=== PATIENT | male | born 1970 | race Caucasian/White ===

== ENCOUNTER 2020-08-13 14:13 | Emergency (ER) | payer OTHER, SELFPAY ==
[2020-08-13 15:28] VITALS: BP 183/93; PULSE 122; RESP 18; TEMP 36.8; O2SAT 99; BMI 29.5
--- NOTE | 2020-08-13 15:29 | ED.GENADULT ---
HPI - General Adult General Chief complaint: General Medical Stated complaint: ?pulmonary embolism,lumps on legs Time Seen by Provider: 08/13/20 15:28 Source: patient Mode of arrival: ambulatory Limitations: no limitations History of Present Illness HPI narrative: In 50-year-old male with prior medical history significant for a DVT in the right lower extremity from right leg surgery a year ago he was anticoagulated with Lovenox subsequently. Next any anticoagulants he presents ambulatory from [facility] for rule out ? PE/DVT? Reports right calf pain ongoing for past couple of days. He did have upper respiratory symptoms with cough and shortness of breath which his family had and they all tested positive for COVID he was presumed COVID though symptoms are starting to improve. Upon arrival he is tachycardic 124 with pulse ox 98%. He admittedly slightly nervous given his history of DVT and concern for PE. Onset (ago): day(s) Related Data Allergies Allergy/AdvReac Type Severity Reaction Status Date / Time No Known Allergies Allergy Verified 08/13/20 15:28 [facility] Past Medical History Medical History (Updated 08/13/20 @ 15:32 by Jordana Pyle) DVT (deep venous thrombosis) Social History Social History Advance Directives: No Advance Directives Information Provided: Yes Physical Exam Vital Signs: Vital Signs: Last Vital Signs Temp 98.2 F 08/13/20 15:28 Pulse 122 H 08/13/20 15:28 Resp 18 08/13/20 15:28 BP 183/93 H 08/13/20 15:28 Pulse Ox 99 08/13/20 15:28 Body Mass Index 29.5 Course Course Course Narrative: 1533 In review 50-year-old male with history of provoked DVT in the right lower extremity a year ago status post Lovenox not currently taking any anticoagulants Presenting with right calf pain. Tachycardic in the waiting room though not hypoxic likely secondary to anxiety however given his history will check labs and right lower extremity ultrasound. Reevaluation(s) Reevaluation #1: 1540 Labs drawn by me and sent. Medical Decision Making Medical Records Medical records reviewed: Yes I reviewed the patient's medical records. Lab Data Result diagrams: 08/13/20 15:35 08/13/20 15:35 Labs: Lab Results 08/13/20 08/13/20 08/13/20 Range/Units 15:35 15:35 15:35 WBC 14.0 H (4.8-10.8) X10*3/uL RBC 6.16 H (4.60-5.80) X10*6/uL Hgb 17.4 (14.0-18.0) g/dl Hct 51.2 (42-52) % MCV 83.1 (80-98) fL MCH 28.2 (27.0-33.0) pg MCHC 34.0 (31.0-36.0) g/dl RDW 12.8 (11.0-16.0) % Plt Count 363 (160-400) X10*3/uL MPV 9.9 (9.4-12.4) fL Immature Gran % (Auto) 0.9 H (0.0-0.4) % Neut % (Auto) 66.8 (45-73) % Lymph % (Auto) 22.8 (20-40) % [place] % (Auto) 8.1 (2-11) % Eos % (Auto) 0.7 (0-4) % Baso % (Auto) 0.7 (0-2) % Lymph # (Auto) 3.2 (1.2-4.9) X10*3/uL [place] # (Auto) 1.1 (0.1-1.2) X10*3/uL Eos # (Auto) 0.1 (0.0-0.4) X10*3/uL Baso # (Auto) 0.1 (0.0-0.2) X10*3/uL Abs Immat Gran (auto) 0.12 H (0.00-0.03) X10*3/uL Absolute Neuts (auto) 9.4 H (2.0-8.3) X10*3/uL Absolute Nucleated RBC 0.000 (0.0-0.012) X10*3/uL Nucleated RBC % (auto) 0.0 (0.0-0.2) /100WBC PT 10.7 L (10.8-13.0) SEC INR 0.9 (0.9-1.1) APTT 36.2 (24.1-38.0) SEC D-Dimer < 200 NG/ML Sodium 139 (135-145) mmol/L Potassium 4.6 (3.3-5.1) mmol/l Chloride 101 (96-108) mmol/L Carbon Dioxide 26 (22-29) mmol/L Anion Gap 17 (12-20) BUN 9 (9-16) mg/dL Creatinine 0.86 (0.5-1.4) mg/dL Estim Creat Clear Calc 113.1 Estimated GFR > 60 Random Glucose 440 H* (60-115) mg/dL Calcium 10.6 H (8.4-10.2) mg/dL Total Bilirubin 0.3 (0.0-1.0) mg/dL AST 13 (5-37) U/L ALT 22 (0-40) U/L Alkaline Phosphatase 63 (39-117) U/L Total Protein 7.9 (6.5-8.0) g/dL Albumin 4.8 (3.5-5.0) g/dL Imaging Data Right lower extremity ultrasound: Radiologist's impression: Dmitriy Tsang 50 M 1970 [place] [address] Ultrasound Report Signed Patient: Dmitriy TsangMR#: [id number] : 1970Acct:[id number] Age/Sex: 50 / MADM Date: 08/13/20 Loc: .ED Attending Dr: Ordering Physician: Sarthak Rivas NP Date of Service: 08/13/20 Procedure(s): US venous duplex LE RT Accession Number(s): [id number] cc: Sarthak Rivas NP~ EXAMINATION: US VENOUS ULTRASOUND WITH DOPPLER LOWER EXTREMITY, RIGHT CLINICAL INFORMATION: History of DVT COMPARISON: None TECHNIQUE: Ultrasound of the deep veins is performed from the hip to the calf with compression sonography and color and pulse Doppler assessment. Spectral analysis with color-flow imaging is performed. FINDINGS: There is normal venous compression and respiratory variation and augmented flow. The visualized common femoral vein, superficial femoral vein, profunda femoral vein, popliteal vein, and the trifurcation region shows no evidence of deep venous thrombosis. There is no significant popliteal fossa cyst. A small 8 x 3 x 5 mm soft tissue nodule is present in the right lateral mid reyes. If the patient's symptoms persist, followup ultrasound in 5 days 7 days might be of value to exclude proximal propagation from a non-visualized calf vein. US/US venous duplex LE RT IMPRESSION: No DVT demonstrated in the right lower extremity. Small soft tissue nodule reyes as described above. Dictated By:HOME VALDIVIA MD Signed By:<Electronically signed by HOME VALDIVIA MD in OV>08/13/20 9946 DD/ 1535 TD/TT: Cassandra Consultant: Discharge Plan Discharge Patient Disposition: Left Against Medical Advice Interventions: ED Discharge Assessment Last Done: 08/13/20 18:44 Discharge Date/Time: 08/13/20 20:00
--- NOTE | 2020-08-13 15:35 | US_ITS ---
EXAMINATION: US VENOUS ULTRASOUND WITH DOPPLER LOWER EXTREMITY, RIGHT CLINICAL INFORMATION: History of DVT COMPARISON: None TECHNIQUE: Ultrasound of the deep veins is performed from the hip to the calf with compression sonography and color and pulse Doppler assessment. Spectral analysis with color-flow imaging is performed. FINDINGS: There is normal venous compression and respiratory variation and augmented flow. The visualized common femoral vein, superficial femoral vein, profunda femoral vein, popliteal vein, and the trifurcation region shows no evidence of deep venous thrombosis. There is no significant popliteal fossa cyst. A small 8 x 3 x 5 mm soft tissue nodule is present in the right lateral mid reyes. If the patient's symptoms persist, followup ultrasound in 5 days 7 days might be of value to exclude proximal propagation from a non-visualized calf vein. US/US venous duplex LE RT IMPRESSION: No DVT demonstrated in the right lower extremity. Small soft tissue nodule reyes as described above.
[2020-08-13 15:46] LABS: MANUAL DIFF FLAG NO
[2020-08-13 15:58] LABS: INTERNATIONAL NORM RATIO 0.9 (0.9-1.1); Prothrombin Time 10.7 SEC (10.8-13.0)
[2020-08-13 16:01] LABS: Partial Thromboplastin Time 36.2 SEC (24.1-38.0)
[2020-08-13 16:03] LABS: Basophils Absolute Auto 0.1 X10*3/uL (0.0-0.2); Basophils Percent Auto 0.7 % (0-2); Eosinophils Absolute Auto 0.1 X10*3/uL (0.0-0.4); Eosinophils Percent Auto 0.7 % (0-4); Hematocrit 51.2 % (42-52); Hemoglobin 17.4 g/dl (14.0-18.0); Imm Gran Abs Auto 0.12 X10*3/uL (0.00-0.03); Imm Gran Pct Auto 0.9 % (0.0-0.4); Lymphocytes Absolute Auto 3.2 X10*3/uL (1.2-4.9); Lymphocytes Percent Auto 22.8 % (20-40); Mean Corpuscular Hemoglobin 28.2 pg (27.0-33.0); Mean Corpuscular Volume 83.1 fL (80-98); Mean Platelet Volume 9.9 fL (9.4-12.4); Monocytes Absolute Auto 1.1 X10*3/uL (0.1-1.2); Monocytes Percent Auto 8.1 % (2-11); Neutrophils Absolute Auto 9.4 X10*3/uL (2.0-8.3); Neutrophils Percent Auto 66.8 % (45-73); Platelet Count 363 X10*3/uL (160-400); Red Blood Count 6.16 X10*6/uL (4.60-5.80); Red Cell Distribution Width 12.8 % (11.0-16.0)
[2020-08-13 16:07] LABS: D Dimer < 200 NG/ML
[2020-08-13 16:40] LABS: Alanine Aminotransferase 22 U/L (0-40); Albumin Level 4.8 g/dL (3.5-5.0); Alkaline Phosphatase 63 U/L (39-117); Anion Gap 17 (12-20); Aspartate Amino Transferase 13 U/L (5-37); Bilirubin Total 0.3 mg/dL (0.0-1.0); Blood Urea Nitrogen 9 mg/dL (9-16); Calcium 10.6 mg/dL (8.4-10.2); Carbon Dioxide 26 mmol/L (22-29); Chloride 101 mmol/L (96-108); Creatinine Clr Calc Pharmacy 113.1; Estimated Glomerular Filt Rate > 60; Glucose Random 440 mg/dL (60-115); Potassium 4.6 mmol/l (3.3-5.1); Sodium 139 mmol/L (135-145); Total Protein 7.9 g/dL (6.5-8.0)
--- NOTE | 2020-08-13 18:52 | ED_ITS ---
HPI - General Adult General Chief complaint: General Medical Stated complaint: ?pulmonary embolism,lumps on legs Time Seen by Provider: 08/13/20 15:28 Source: patient Mode of arrival: ambulatory Limitations: no limitations History of Present Illness HPI narrative: This case was signed out to me by isai Rivas to follow an ultrasound, re-evaluate and disposition this patient When I went to look for the patient in the waiting room, he had been seen in the waiting room and started by the nurse practitioner the patient had left the department so I never saw the patient, I did check the labs is D-dimer was normal under 200 and his ultrasound of his leg was negative He had an initial pulse of 120 which was not recheck and I could not recheck as the patient was gone and had left the department Review of his labs did not show any acute emergent condition that needed to be communicated Related Data Allergies Allergy/AdvReac Type Severity Reaction Status Date / Time No Known Allergies Allergy Verified 08/13/20 15:28 [facility] Past Medical History Medical History (Updated 08/13/20 @ 15:32 by Jordana Pyle) DVT (deep venous thrombosis) Social History Social History Advance Directives: No Advance Directives Information Provided: Yes Physical Exam Vital Signs: Vital Signs: Last Vital Signs Temp 98.2 F 08/13/20 15:28 Pulse 122 H 08/13/20 15:28 Resp 18 08/13/20 15:28 BP 183/93 H 08/13/20 15:28 Pulse Ox 99 08/13/20 15:28 Body Mass Index 29.5 Medical Decision Making Lab Data Result diagrams: 08/13/20 15:35 08/13/20 15:35 Labs: Lab Results 08/13/20 08/13/20 08/13/20 Range/Units 15:35 15:35 15:35 WBC 14.0 H (4.8-10.8) X10*3/uL RBC 6.16 H (4.60-5.80) X10*6/uL Hgb 17.4 (14.0-18.0) g/dl Hct 51.2 (42-52) % MCV 83.1 (80-98) fL MCH 28.2 (27.0-33.0) pg MCHC 34.0 (31.0-36.0) g/dl RDW 12.8 (11.0-16.0) % Plt Count 363 (160-400) X10*3/uL MPV 9.9 (9.4-12.4) fL Immature Gran % (Auto) 0.9 H (0.0-0.4) % Neut % (Auto) 66.8 (45-73) % Lymph % (Auto) 22.8 (20-40) % [place] % (Auto) 8.1 (2-11) % Eos % (Auto) 0.7 (0-4) % Baso % (Auto) 0.7 (0-2) % Lymph # (Auto) 3.2 (1.2-4.9) X10*3/uL [place] # (Auto) 1.1 (0.1-1.2) X10*3/uL Eos # (Auto) 0.1 (0.0-0.4) X10*3/uL Baso # (Auto) 0.1 (0.0-0.2) X10*3/uL Abs Immat Gran (auto) 0.12 H (0.00-0.03) X10*3/uL Absolute Neuts (auto) 9.4 H (2.0-8.3) X10*3/uL Absolute Nucleated RBC 0.000 (0.0-0.012) X10*3/uL Nucleated RBC % (auto) 0.0 (0.0-0.2) /100WBC PT 10.7 L (10.8-13.0) SEC INR 0.9 (0.9-1.1) APTT 36.2 (24.1-38.0) SEC D-Dimer < 200 NG/ML Sodium 139 (135-145) mmol/L Potassium 4.6 (3.3-5.1) mmol/l Chloride 101 (96-108) mmol/L Carbon Dioxide 26 (22-29) mmol/L Anion Gap 17 (12-20) BUN 9 (9-16) mg/dL Creatinine 0.86 (0.5-1.4) mg/dL Estim Creat Clear Calc 113.1 Estimated GFR > 60 Random Glucose 440 H* (60-115) mg/dL Calcium 10.6 H (8.4-10.2) mg/dL Total Bilirubin 0.3 (0.0-1.0) mg/dL AST 13 (5-37) U/L ALT 22 (0-40) U/L Alkaline Phosphatase 63 (39-117) U/L Total Protein 7.9 (6.5-8.0) g/dL Albumin 4.8 (3.5-5.0) g/dL Discharge Plan Discharge Patient Disposition: Left Against Medical Advice Interventions: ED Discharge Assessment Last Done: 08/13/20 18:44
== END 2020-08-13 20:00 | disposition left against medical advice (07) ==
LOC: HO.ED 18:57
PROVIDERS: Nurse Practitioner Primary Care; Emergency Provider Emergency Medicine
DX: M79.661 Pain in right lower leg (principal); R22.41 Localized swelling, mass and lump, right lower limb; F41.9 Anxiety disorder, unspecified; R00.0 Tachycardia, unspecified; Z86.718 Personal history of other venous thrombosis and embolism; Z86.16 Personal history of COVID-19
CPT/HCPCS: 36415; 80053; 85025; 85379; 85610; 85730; 93971; 99283; 99284

== ENCOUNTER 2022-05-20 10:32 | Inpatient (IN) | payer MEDICARE, SELFPAY ==
--- NOTE | ~2022-05-20 | IR_ITS ---
PROCEDURE: IR INSERTION OF PICC CLINICAL INFORMATION: Long-term IV antibiotic requirement. COMPARISON: None. TECHNIQUE: Procedure and risks and benefits including bleeding, infection and blood clot were discussed with the patient and informed consent was obtained. The right upper arm was prepped and draped in the usual sterile fashion. All elements of maximal sterile barrier technique followed including use of cap, mask, sterile gown, sterile gloves, a sterile full body drape and hand hygiene. Also followed skin preparation with 2% chlorhexidine for cutaneous antisepsis, and sterile ultrasound preparation with sterile gel and probe cover when applicable. Skin and soft tissues were anesthetized with 1% lidocaine plain. Using ultrasound guidance and a 5 Mong[place]ian micropuncture system, right internal jugular vein access was obtained. Over an 018 wire and through a peel-away sheath, a 4 [place] double-lumen PICC line was positioned. Catheter length is 37 cm. Catheter tip is in the SVC. Real-time ultrasound guidance was used to document vein patency and for needle entry. A formal ultrasound picture was recorded. FLUOROSCOPY TIME: 0.2 minutes. DAP: 48 cGy per centimeter squared. FINDINGS: There is a right upper extremity PICC line with tip projecting over the SVC. IR/IR cvc insert peripheral IMPRESSION: Right upper extremity PICC line placement.
--- NOTE | ~2022-05-20 | XR_ITS ---
EXAMINATION: PORTABLE CHEST 1 VIEW CLINICAL INFORMATION: dyspnea . COMPARISON: 05/20/2022 CT scan. TECHNIQUE: Portable frontal view of the chest was obtained. FINDINGS: Lungs are well expanded. There is obscuration left hemidiaphragm suggesting small layering left effusion and left basilar consolidation/atelectasis. There is central vascular prominence and some indistinctness to the vessels likely reflecting component of mild pulmonary edema when compared to the prior study. Cardiac silhouette within normal limits for size. Degenerative changes in the spine. XR/XR chest 1V IMPRESSION: Increased central vascular prominence with indistinctness to the vessels likely reflecting a component of mild pulmonary edema. Small layering left effusion with left basilar consolidation/atelectasis.
--- NOTE | ~2022-05-20 | IR_ITS ---
PROCEDURE: IR INSERTION OF PICC CLINICAL INFORMATION: Long-term IV antibiotic requirement. COMPARISON: None. TECHNIQUE: Procedure and risks and benefits including bleeding, infection and blood clot were discussed with the patient and informed consent was obtained. The right upper arm was prepped and draped in the usual sterile fashion. All elements of maximal sterile barrier technique followed including use of cap, mask, sterile gown, sterile gloves, a sterile full body drape and hand hygiene. Also followed skin preparation with 2% chlorhexidine for cutaneous antisepsis, and sterile ultrasound preparation with sterile gel and probe cover when applicable. Skin and soft tissues were anesthetized with 1% lidocaine plain. Using ultrasound guidance and a 5 [place] micropuncture system, right internal jugular vein access was obtained. Over an 018 wire and through a peel-away sheath, a 4 [place] double-lumen PICC line was positioned. Catheter length is 37 cm. Catheter tip is in the SVC. Real-time ultrasound guidance was used to document vein patency and for needle entry. A formal ultrasound picture was recorded. FLUOROSCOPY TIME: 0.2 minutes. DAP: 48 cGy per centimeter squared. FINDINGS: There is a right upper extremity PICC line with tip projecting over the SVC. IR/IR us guide venous access IMPRESSION: Right upper extremity PICC line placement.
--- NOTE | ~2022-05-20 | XR_ITS ---
EXAMINATION: XR CHEST CLINICAL INFORMATION: Left IJ catheter and orogastric tube COMPARISON: Chest radiograph earlier this evening at 10:42 PM TECHNIQUE: Frontal view of the chest was obtained. FINDINGS: ET tube about 5 cm above the karen. A newly placed left IJ catheter has its tip in the proximal SVC against the lateral wall. Study with its tip coiled in the stomach. The tip of the catheter is not visualized. Again seen is mild cardiomegaly, bilateral pleural effusions and bibasilar opacities/atelectasis XR/XR chest 1V IMPRESSION: Newly placed left IJ catheter with tip in the proximal SVC against the lateral wall. Tip of orogastric tube below the diaphragm but not visualized. Other findings as described above.
--- NOTE | ~2022-05-20 | XR_ITS ---
EXAMINATION: XR CHEST CLINICAL INFORMATION: Shortness of breath COMPARISON: 05/28/2022 and prior May imaging. TECHNIQUE: AP portable upright view of the chest was obtained. FINDINGS: Numerous ECG leads overlie the thorax. Interval decrease in pleural effusions. Persistent abnormal reticular markings right more than left likely interstitial pulmonary edema. Persistent left lower lobe consolidation possibly pneumonia. Persistent prominence of the heart, mediastinum and central vasculature. Endotracheal tube, nasogastric tube and left IJ central venous catheter removed. No pneumothorax. Right PICC line in place with tip projecting over mid SVC. Nonobstructive gas pattern XR/XR chest 1V IMPRESSION: 1. Persistent but improving pulmonary edema with resolving effusions. 2. Persistent dense left lower lobe consolidation.
--- NOTE | ~2022-05-20 | XR_ITS ---
EXAMINATION: XR CHEST CLINICAL INFORMATION: Endotracheal tube. COMPARISON: 05/28/2022 chest radiograph. TECHNIQUE: Frontal view of the chest was obtained. FINDINGS: Support devices: Endotracheal tube with tip terminating approximately 5 cm proximal to the karen. There are increased pulmonary vascular markings with bibasilar opacification and superjacent haziness. The heart and mediastinal structures are unremarkable. XR/XR chest 1V IMPRESSION: 1. Endotracheal tube with tip terminating approximately 5 cm proximal to the karen. 2. Bilateral pleural effusions with probable layering. Superjacent atelectasis and infiltrates cannot be excluded. Underlying mild congestion cannot be excluded.
--- NOTE | ~2022-05-20 | CT_ITS ---
EXAMINATION: CT CHEST WITH CONTRAST CLINICAL INFORMATION: Large abscess on back. COMPARISON: None TECHNIQUE: Multidetector volumetric CT imaging of the chest was obtained after the administration of 55 mL of Omnipaque 350 intravenous contrast without immediate adverse reactions. Axial MIP volume rendering provided. Sagittal and coronal reformatted images were obtained. Of note, the patient was scanned in the prone position. This CT examination was performed using dose optimization techniques as appropriate, variously including the following: *Automated exposure control *Adjustment of mA and/or kV according to patient size (this includes techniques or standardized protocols for targeted exams where dose is matched to indication/reason for exam; i.e. extremities or head) *Use of iterative reconstruction technique DLP: 313 mGy-cm FINDINGS: TRANSPORTATION ENGINEERING TECHNICIAN: Unremarkable. LUNGS: Secretions noted in the trachea and mainstem bronchi. No dense consolidation. Minimal bibasilar atelectasis. No pneumothorax. No suspicious pulmonary nodule. MEDIASTINUM: Normal heart size. No pericardial effusion. No mediastinal lymphadenopathy. The visualized thyroid gland is unremarkable. CORONARY ARTERY CALCIFICATION: Present. PLEURA: There is no pleural effusion. No pleural mass or thickening. AXILLA: No lymphadenopathy. CHEST WALL: There is a well marginated fluid collection in the superficial soft tissues of the back to the right of midline. There is internal fluid and gas. This collection measures 10.6 x 5.2 x 14 cm. This begins approximately 0.3 cm deep to the skin surface, although there is a component which extends to the skin surface as seen on series 3 image 31. This extends posteriorly along the right trapezius muscle. Surrounding inflammatory stranding is present. UPPER ABDOMEN: Unremarkable OSSEOUS STRUCTURES: No acute or suspicious osseous abnormality. Degenerative changes noted in the spine. The superficial collection does not extend to the bony structures. No osseous erosion. CT/CT chest w IV con IMPRESSION: 1. Superficial fluid collection of the back to the right of midline with internal fluid and gas. This tracks along the right trapezius muscle. This is consistent with abscess. No extension to the bony structures. 2. No acute pulmonary finding. Secretions noted in the trachea and mainstem bronchi. Fleischner guidelines were followed.
[2022-05-20 10:54] VITALS: BP 134/85; PULSE 120; RESP 19; TEMP 36.6; O2SAT 98; BMI 30.4
[2022-05-20 12:03] LABS: Basophils Absolute Auto 0.1 X10*3/uL (0.0-0.2); Basophils Percent Auto 0.6 % (0-2); Eosinophils Percent Auto 0.1 % (0-4); Hematocrit 47.8 % (42.0-52.0); Hemoglobin 16.4 g/dl (14.0-18.0); Imm Gran Abs Auto 0.58 X10*3/uL (0.00-0.03); Imm Gran Pct Auto 2.5 % (0.0-0.4); Lymphocytes Absolute Auto 2.2 X10*3/uL (1.2-4.9); Lymphocytes Percent Auto 9.2 % (20-40); MANUAL DIFF FLAG SCAN; Mean Corpuscular HGB Conc 34.3 g/dl (31.0-36.0); Mean Corpuscular Hemoglobin 27.6 pg (27.0-33.0); Mean Corpuscular Volume 80.3 fL (80.0-98.0); Mean Platelet Volume 10.5 fL (9.4-12.4); Monocytes Absolute Auto 2.5 X10*3/uL (0.1-1.2); Monocytes Percent Auto 10.6 % (2-11); Neutrophils Absolute Auto 17.9 x10*3/uL (2.0-8.3); Platelet Count 455 X10*3/uL (160-400); Red Blood Count 5.95 X10*6/uL (4.60-5.80); Red Cell Distribution Width 12.4 % (11.0-16.0); SCAN SMEAR FLAG 1; White Blood Count 23.3 X10*3/uL (4.8-10.8)
--- NOTE | 2022-05-20 12:13 | ED.GENADULT ---
HPI - General Adult General Chief complaint: Wound/Laceration Stated complaint: cyst on back Time Seen by Provider: 05/20/22 12:13 Source: patient Mode of arrival: ambulatory Limitations: no limitations History of Present Illness HPI narrative: Patient is a 52 year old assigned male at with no reported medical history presenting to the emergency department today with a cyst on his back. Patient states that for the last week, he has had a large cyst on the right side of his back that is progressively getting bigger. Patient states that over the last couple days, he has felt generally unwell. Patient denies any dizziness, lightheadedness, abdominal pain, nausea, vomiting, fever, chills, blurry vision, double vision, loss of vision, chest pain, difficulty breathing, shortness of breath, night sweats, pain with urination, increased urinary frequency, increased urinary urgency, blood in his urine or stool, syncope or a near syncopal episode, recent trauma or falls, bowel incontinence, bladder incontinence, bowel retention, bladder retention, or any other complaints at this time. Onset (ago): week(s) (1) Location: back Radiation: non-radiation Severity: moderate Severity scale (1-10): 5 Quality: aching and dull Pain Consistency: constant Relieving factors: none Exacerbating factors: none Associated symptoms: malaise Treatments prior to arrival: none Related Data Home Medications Medication Instructions Recorded Confirmed No Known Home Meds 05/20/22 05/20/22 Allergies Allergy/AdvReac Type Severity Reaction Status Date / Time No Known Allergies Allergy Verified 08/13/20 15:28 Review of Systems Constitutional: Constitutional: Reports no additional constitutional complaints, Denies chills, Reports fatigue, Denies fever(s), Reports malaise and Denies night sweats Eyes: Eyes: Reports no additional eye complaints, Denies blurry vision, Denies change in vision, Denies diplopia, Denies eye discharge, Denies loss of vision and Denies eye pain ENT: Denies dizziness Cardiovascular: Cardiovascular: Reports no additional cardiovascular complaints, Denies chest pain, Denies lightheadedness, Denies Loss of Consciousness and Denies dyspnea Respiratory: Respiratory: Reports no additional respiratory complaints and Denies dyspnea Gastrointestinal: Gastrointestinal: Reports no additional gastrointestinal complaints, Denies abdominal pain, Denies melena, Denies hematochezia, Denies change in bowel habits and Denies change in stool character Genitourinary: Genitourinary: Reports no additional male genitourinary complaints, Denies hematuria, Denies oliguria, Denies difficulty urinating, Denies dysuria, Denies urinary frequency, Denies urinary hesitancy, Denies urinary incontinence and Denies urinary urgency Musculoskeletal: Musculoskeletal: Reports no additional musculoskeletal complaints, Reports back pain, Denies numbness and Denies tingling Neurologic: Denies dizziness, Denies loss of vision, Denies numbness and Denies tingling Psychiatric: Psychiatric: Reports no additional psychiatric complaints Endocrine: Endocrine: Reports no additional endocrine complaints and Reports fatigue Hematologic/Lymphatic: Hematologic/Lymphatic: Reports no additional hematologic/lymphatic complaints Allergic/Immunologic: Allergic/Immunologic: Reports no additional allergic/immunologic complaints PMFSH Past Medical History Attestation statement: The following information was validated with the patient. Source: old records reviewed Medical History DVT (deep venous thrombosis) Social History Social History Patient Tobacco Use Status: Former Tobacco user Smoked in Last 30 Days: Yes Use of substances other than those prescribed or required for medical reasons: No Advance Directives: No Physical Exam ED Vital Signs: Vital Signs - 24 hr 05/20/22 10:54 05/20/22 12:47 05/20/22 14:51 Temperature 98 F 98.3 F Pulse Rate 120 H 108 H 96 Respiratory Rate 19 20 18 Blood Pressure 134/85 126/75 96/59 L Pulse Oximetry 98 94 Oxygen Delivery Method Room Air Room Air BMI result Body Mass Index 30.4 Const General: cooperative, no acute distress, alert and awake Nutritional Appearance: well nourished Orientation/consciousness: patient oriented x3 Limitations: no limitations HENMT Head: Yes normal to inspection and Yes atraumatic Ears: hearing grossly normal bilaterally and external ears normal General nose exam: Normal external nose present, no nasal discharge noted and no epistaxis Face and sinus: Yes normal facial exam, No abrasion and No laceration Mouth: Normal oral and palatal mucosa present, no drooling and no muffled voice Eyes General: appearance normal, both eyes and all related structures Periorbital: periorbital findings normal Eyelids: Yes eyelids normal Conjunctivae: conjunctivae normal Pupils: Equal, round and reactive pupils present EOM: EOMs intact bilaterally Neck Neck: Yes normal visual inspection, Yes full ROM and Yes no lymphadenopathy Chest Chest palpation & inspection: normal inspection of the chest Resp Effort & Inspection: normal respiratory effort and able to speak in complete sentences Auscultation: clear to auscultation bilaterally Cardio Rate: regular rate Rhythm: regular rhythm GI Inspection: Yes normal to inspection Back/Spine/Pelvis Other: Neuro General: patient oriented x3 and moves all extremities Cranial nerves: Yes Equal, round and reactive pupils present Cognition (Neuro): normal cognition Motor exam (neuro): 5/5 motor strength present throughout Sensory Exam: Normal double simultaneous stimulation for sensation Coordination: [id number] test normal Extrem General: Yes normal to inspection, Yes full ROM and Yes capillary refill normal Psych Appearance: grossly normal Mental Status: mental status grossly normal Affect: normal affect Attitude: cooperative Thought process: Normal thought process present Thought content: Normal thought content present Insight: Good insight present (Psych) Procedures Abscess I/D Site: back Side (if applicable): right Local Anesthetic: lidocaine 1% Amount of anesthesia used (mL): 10 Technique: incised with blade Amount of fluid expressed (mL): 200 Sent for culture/gram staining?: Yes Irrigation: No Packing used?: iodoform Medical Decision Making MDM Narrative Medical decision making narrative: Patient is a 52 year old assigned male at with no reported medical history presenting to the emergency department today with an abscess on his back and feeling generally unwell. Patient's physical exam showed a very large abscess to the right back with bruising of the skin around the area. Patient's blood work showed WBC count of 23.3 with left shift, ESR 48, CRP 26.52, initial glucose of 682, sodium 126 - adjusted for glucose is actually 135. Patient's HGBA1C was checked and was 13.9, affirming the patient is a newly diagnosed Type 2 diabetic. Patient was given 30mg/kg NS and IV Insulin which corrected his glucose to 402. Patient's urine showed no acute process. Patient's chest CT showed an extensive abscess of the back. I explained my physical exam findings as well as all test results to the patient and the patient's . I answered all questions asked by the patient and the patient's . Patient was considered septic at 1213 and at that time was immediately given IV Zosyn. I spoke to the general surgeon permastone installer who performed a bed side I&D, expressing 200ml of pus from the abscess. Patient's wound was packed, per procedure note, without incident. General surgeon permastone installer recommended admission to medicine. I spoke to the hospitalist team who agreed to hospital admission. Patient and the patient's verbalized agreement and understanding with this treatment plan and admission. Medical Records Medical records reviewed: Yes I reviewed the patient's medical records. Lab Data Lab results reviewed: Yes I reviewed the patient's lab results. Result diagrams: 05/20/22 11:49 05/20/22 11:49 Labs: Lab Results 05/20/22 05/20/22 05/20/22 Range/Units 11:49 11:49 11:49 WBC 23.3 H (4.8-10.8) X10*3/uL RBC 5.95 H (4.60-5.80) X10*6/uL Hgb 16.4 (14.0-18.0) g/dl Hct 47.8 (42.0-52.0) % MCV 80.3 (80.0-98.0) fL MCH 27.6 (27.0-33.0) pg MCHC 34.3 (31.0-36.0) g/dl RDW 12.4 (11.0-16.0) % Plt Count 455 H (160-400) X10*3/uL MPV 10.5 (9.4-12.4) fL Immature Gran % (Auto) 2.5 H (0.0-0.4) % Neut % (Auto) 77.0 H (45-73) % Lymph % (Auto) 9.2 L (20-40) % [place] % (Auto) 10.6 (2-11) % Eos % (Auto) 0.1 (0-4) % Baso % (Auto) 0.6 (0-2) % Lymph # (Auto) 2.2 (1.2-4.9) X10*3/uL M[place]ick # (Auto) 2.5 H (0.1-1.2) X10*3/uL Eos # (Auto) 0.0 (0.0-0.4) X10*3/uL Baso # (Auto) 0.1 (0.0-0.2) X10*3/uL Abs Immat Gran (auto) 0.58 H (0.00-0.03) X10*3/uL Absolute Neuts (auto) 17.9 H (2.0-8.3) x10*3/uL Absolute Nucleated RBC 0.000 (0.0-0.012) X10*3/uL Nucleated RBC % (auto) 0.0 (0.0-0.2) /100WBC Smear Tech's Comments VERIFIED ESR 48 H (0-15) MM/HR VBG pH (7.32-7.43) VBG pCO2 mmHg VBG pO2 mmHg VBG HCO3 (22-26) mmol/L VBG O2 Saturation % VBG Base Excess mmol/L Sodium 126 L (135-145) mmol/L Potassium 4.8 (3.3-5.1) mmol/L Chloride 82 L (96-108) mmol/L Carbon Dioxide 25 (22-29) mmol/L Anion Gap 24 H (12-20) BUN 14 (9-16) mg/dL Creatinine 0.85 (0.5-1.4) mg/dL Estim Creat Clear Calc 109.9 Estimated GFR > 60 POC Glucose (60-115) mg/dL Random Glucose 682 H* (60-115) mg/dL Estimat Average Glucose mg/dL Hemoglobin A1c % % Calcium 8.1 L D (8.4-10.2) mg/dL Total Bilirubin 0.6 (0.0-1.0) mg/dL Direct Bilirubin 0.2 (0.0-0.5) mg/dL AST 18 (5-37) U/L ALT 15 (0-40) U/L Alkaline Phosphatase 113 D (39-117) U/L C-Reactive Protein 26.52 H (< or = 0.50) mg/dL Total Protein 6.0 L D (6.5-8.0) g/dL Albumin 3.0 L D (3.5-5.0) g/dL Urine Color Urine Appearance Urine pH (5.0-9.0) Ur Specific [place] (1.005-1.025) Urine Protein (Neg-Trace) mg/dL Urine Glucose (UA) (Negative) mg/dL Urine Ketones (Negative) mg/dL Urine Blood (Negative) Urine Nitrite (Negative) Ur Leukocyte Esterase (Negative) Urine RBC (0-2) /HPF Urine WBC (0-5) /HPF Ur Squamous Epith Cells (0-2) /HPF Urine Bacteria (None Seen) Hyaline Casts (0-2) /LPF 05/20/22 05/20/22 05/20/22 Range/Units 13:10 13:13 14:05 WBC (4.8-10.8) X10*3/uL RBC (4.60-5.80) X10*6/uL Hgb (14.0-18.0) g/dl Hct (42.0-52.0) % MCV (80.0-98.0) fL MCH (27.0-33.0) pg MCHC (31.0-36.0) g/dl RDW (11.0-16.0) % Plt Count (160-400) X10*3/uL MPV (9.4-12.4) fL Immature Gran % (Auto) (0.0-0.4) % Neut % (Auto) (45-73) % Lymph % (Auto) (20-40) % Mccormick % (Auto) (2-11) % Eos % (Auto) (0-4) % Baso % (Auto) (0-2) % Lymph # (Auto) (1.2-4.9) X10*3/uL M[place]ick # (Auto) (0.1-1.2) X10*3/uL Eos # (Auto) (0.0-0.4) X10*3/uL Baso # (Auto) (0.0-0.2) X10*3/uL Abs Immat Gran (auto) (0.00-0.03) X10*3/uL Absolute Neuts (auto) (2.0-8.3) x10*3/uL Absolute Nucleated RBC (0.0-0.012) X10*3/uL Nucleated RBC % (auto) (0.0-0.2) /100WBC Smear Tech's Comments ESR (0-15) MM/HR VBG pH 7.47 H (7.32-7.43) VBG pCO2 35 mmHg VBG pO2 61 mmHg VBG HCO3 25 (22-26) mmol/L VBG O2 Saturation 91.0 % VBG Base Excess 2.7 mmol/L Sodium (135-145) mmol/L Potassium (3.3-5.1) mmol/L Chloride (96-108) mmol/L Carbon Dioxide (22-29) mmol/L Anion Gap (12-20) BUN (9-16) mg/dL Creatinine (0.5-1.4) mg/dL Estim Creat Clear Calc Estimated GFR POC Glucose 593 H* (60-115) mg/dL Random Glucose (60-115) mg/dL Estimat Average Glucose 352 mg/dL Hemoglobin A1c % 13.9 % Calcium (8.4-10.2) mg/dL Total Bilirubin (0.0-1.0) mg/dL Direct Bilirubin (0.0-0.5) mg/dL AST (5-37) U/L ALT (0-40) U/L Alkaline Phosphatase (39-117) U/L C-Reactive Protein (< or = 0.50) mg/dL Total Protein (6.5-8.0) g/dL Albumin (3.5-5.0) g/dL Urine Color Urine Appearance Urine pH (5.0-9.0) Ur Specific [place] (1.005-1.025) Urine Protein (Neg-Trace) mg/dL Urine Glucose (UA) (Negative) mg/dL Urine Ketones (Negative) mg/dL Urine Blood (Negative) Urine Nitrite (Negative) Ur Leukocyte Esterase (Negative) Urine RBC (0-2) /HPF Urine WBC (0-5) /HPF Ur Squamous Epith Cells (0-2) /HPF Urine Bacteria (None Seen) Hyaline Casts (0-2) /LPF 05/20/22 05/20/22 Range/Units 15:13 15:54 WBC (4.8-10.8) X10*3/uL RBC (4.60-5.80) X10*6/uL Hgb (14.0-18.0) g/dl Hct (42.0-52.0) % MCV (80.0-98.0) fL MCH (27.0-33.0) pg MCHC (31.0-36.0) g/dl RDW (11.0-16.0) % Plt Count (160-400) X10*3/uL MPV (9.4-12.4) fL Immature Gran % (Auto) (0.0-0.4) % Neut % (Auto) (45-73) % Lymph % (Auto) (20-40) % Mccormick % (Auto) (2-11) % Eos % (Auto) (0-4) % Baso % (Auto) (0-2) % Lymph # (Auto) (1.2-4.9) X10*3/uL M[place]ick # (Auto) (0.1-1.2) X10*3/uL Eos # (Auto) (0.0-0.4) X10*3/uL Baso # (Auto) (0.0-0.2) X10*3/uL Abs Immat Gran (auto) (0.00-0.03) X10*3/uL Absolute Neuts (auto) (2.0-8.3) x10*3/uL Absolute Nucleated RBC (0.0-0.012) X10*3/uL Nucleated RBC % (auto) (0.0-0.2) /100WBC Smear Tech's Comments ESR (0-15) MM/HR VBG pH (7.32-7.43) VBG pCO2 mmHg VBG pO2 mmHg VBG HCO3 (22-26) mmol/L VBG O2 Saturation % VBG Base Excess mmol/L Sodium (135-145) mmol/L Potassium (3.3-5.1) mmol/L Chloride (96-108) mmol/L Carbon Dioxide (22-29) mmol/L Anion Gap (12-20) BUN (9-16) mg/dL Creatinine (0.5-1.4) mg/dL Estim Creat Clear Calc Estimated GFR POC Glucose 425 H* (60-115) mg/dL Random Glucose (60-115) mg/dL Estimat Average Glucose mg/dL Hemoglobin A1c % % Calcium (8.4-10.2) mg/dL Total Bilirubin (0.0-1.0) mg/dL Direct Bilirubin (0.0-0.5) mg/dL AST (5-37) U/L ALT (0-40) U/L Alkaline Phosphatase (39-117) U/L C-Reactive Protein (< or = 0.50) mg/dL Total Protein (6.5-8.0) g/dL Albumin (3.5-5.0) g/dL Urine Color Yellow Urine Appearance Clear Urine pH 5.5 (5.0-9.0) Ur Specific [place] >= 1.030 H (1.005-1.025) Urine Protein Negative (Neg-Trace) mg/dL Urine Glucose (UA) >=1000 H (Negative) mg/dL Urine Ketones Trace (Negative) mg/dL Urine Blood Negative (Negative) Urine Nitrite Negative (Negative) Ur Leukocyte Esterase Negative (Negative) Urine RBC 0-2 (0-2) /HPF Urine WBC 0-5 (0-5) /HPF Ur Squamous Epith Cells 0-2 (0-2) /HPF Urine Bacteria None Seen (None Seen) Hyaline Casts 0-2 (0-2) /LPF Imaging Data CT scan - chest: Attestation: I personally reviewed and interpreted this imaging study as follows: My impression: Large abscess. Radiologist's impression: EXAMINATION: CT CHEST WITH CONTRAST CLINICAL INFORMATION: Large abscess on back.? COMPARISON: None? TECHNIQUE: Multidetector volumetric CT imaging of the chest was obtained after the administration of 55 mL of Omnipaque 350 intravenous contrast without immediate adverse reactions. Axial MIP volume rendering provided. Sagittal and coronal reformatted images were obtained. Of note, the patient was scanned in the prone position. This CT examination was performed using dose optimization techniques as appropriate, variously including the following: *Automated exposure control *Adjustment of mA and/or kV according to patient size (this includes techniques or standardized protocols for targeted exams where dose is matched to indication/reason for exam; i.e. extremities or head) *Use of iterative reconstruction technique DLP: 313 mGy-cm FINDINGS: ANIMAL NUTRITIONIST: Unremarkable. LUNGS: Secretions noted in the trachea and mainstem bronchi. No dense consolidation. Minimal bibasilar atelectasis. No pneumothorax. No suspicious pulmonary nodule.? MEDIASTINUM: Normal heart size. No pericardial effusion. No mediastinal lymphadenopathy. The visualized thyroid gland is unremarkable.? CORONARY ARTERY CALCIFICATION: Present. PLEURA: There is no pleural effusion. No pleural mass or thickening.? AXILLA: No lymphadenopathy.? CHEST WALL: There is a well marginated fluid collection in the superficial soft tissues of the back to the right of midline. There is internal fluid and gas. This collection measures 10.6 x 5.2 x 14 cm. This begins approximately 0.3 cm deep to the skin surface, although there is a component which extends to the skin surface as seen on series 3 image 31. This extends posteriorly along the right trapezius muscle. Surrounding inflammatory stranding is present. UPPER ABDOMEN: Unremarkable? OSSEOUS STRUCTURES: No acute or suspicious osseous abnormality. Degenerative changes noted in the spine. The superficial collection does not extend to the bony structures. No osseous erosion.? CT/CT chest w IV con IMPRESSION: 1.? Superficial fluid collection of the back to the right of midline with internal fluid and gas. This tracks along the right trapezius muscle. This is consistent with abscess. No extension to the bony structures. 2.? No acute pulmonary finding. Secretions noted in the trachea and mainstem bronchi. ? Fleischner guidelines were followed. Dictated By: Be Day MD Signed By: Electronically signed by Be Day MD 05/20/22 1418 Critical Care Time Critical Care Time Critical Care Time: Yes Total Critical Care Time: 30 Attestation: I spent 30 minutes of Critical Care Time with this patient. This does not include time spent on separately reported billable procedures. Discharge Plan Discharge Clinical Impression: Abscess, Acute hyperglycemia, Diabetes, Sepsis Patient Disposition: Admitted As Inpatient Prescriptions: No Action No Known Home Meds Print Language: [place]
[2022-05-20 12:40] LABS: Blood Urea Nitrogen 14 mg/dL (9-16); Calcium 8.1 mg/dL (8.4-10.2); Creatinine Clr Calc Pharmacy 109.9; Estimated Glomerular Filt Rate > 60
[2022-05-20 12:42] LABS: Anion Gap 24 (12-20); Carbon Dioxide 25 mmol/L (22-29); Chloride 82 mmol/L (96-108); Potassium 4.8 mmol/L (3.3-5.1); Sodium 126 mmol/L (135-145)
[2022-05-20] MEDS: 0.9 % Sodium Chloride 2,721.54 ML 2721.54 ML IV (12:45)
[2022-05-20] MEDS: Morphine Sulfate 4 MG/ML CARTRIDGE IVPUSH (12:45)
[2022-05-20] MEDS: ondansetron HCL 4 MG/2 ML VIAL IVPUSH (12:45)
[2022-05-20 12:47] VITALS: BP 126/75; PULSE 108; RESP 20
[2022-05-20 12:56] LABS: Glucose Random 682 mg/dL (60-115)
[2022-05-20 12:59] LABS: SLIDE REVIEW VERIFIED
[2022-05-20] MEDS: Piperacillin Sodium/Tazobactam 3.375 GM in 0.9 % Sodium Chloride 50 ML IV (13:05)
[2022-05-20 13:20] LABS: VBG Base Excess 2.7 mmol/L; VBG HCO3 25 mmol/L (22-26); VBG pCO2 35 mmHg; VBG pH 7.47 (7.32-7.43); VBG pO2 61 mmHg
[2022-05-20 13:21] LABS: Venous Blood Gas Refer to POC result
[2022-05-20 13:22] LABS: Alanine Aminotransferase 15 U/L (0-40); Alkaline Phosphatase 113 U/L (39-117); Aspartate Amino Transferase 18 U/L (5-37); Bilirubin Direct 0.2 mg/dL (0.0-0.5); Bilirubin Total 0.6 mg/dL (0.0-1.0); C Reactive Protein 26.52 mg/dL (< or = 0.50)
[2022-05-20 13:24] LABS: Estimated Average Glucose 352 mg/dL; Hemoglobin A1c % 13.9 %
--- NOTE | 2022-05-20 13:54 | PHA.MEDREC ---
Pharmacy Consult ? Medication Reconciliation Pharmacy has completed the medication reconciliation. Patient reports no medications at home. Lakisha Mercedes, ManuelD
[2022-05-20] MEDS: iohexoL 350 MG/ML 75 ML INFUS..BTL 65 ML IV (13:55)
[2022-05-20 13:57] LABS: Erythrocyte Sedimentation Rate 48 MM/HR (0-15)
[2022-05-20] MEDS: iohexoL 350 MG/ML 100 ML INFUS..BTL IV (14:08)
[2022-05-20 14:09] LABS: Glucose, Whole Blood 593 mg/dL (60-115)
[2022-05-20] MEDS: Insulin Regular, Human 100 UNIT/ML 3 ML VIAL IVPUSH ×2 (14:09→17:18)
[2022-05-20 14:51] VITALS: BP 96/59; PULSE 96; RESP 18; TEMP 36.8; O2SAT 94
[2022-05-20 15:26] LABS: Appearance Urine Clear; Color Urine Yellow; Glucose Urine UA >=1000 mg/dL (Negative); Leukocyte Esterase Urine Negative (Negative); Nitrite Urine Negative (Negative); PH 5.5 (5.0-9.0); Specific Gravity - Urine >= 1.030 (1.005-1.025); UMIC TRIGGER UACC YES; Urine Blood Negative (Negative); Urine Ketones Trace mg/dL (Negative); Urine Protein Negative (Neg-Trace)
[2022-05-20 15:38] LABS: Bacteria Urine None Seen (None Seen); Hyaline Casts Urine 0-2 /LPF (0-2); RBC Urine 0-2 /HPF (0-2); Squamous Epithelial Cell Urine 0-2 /HPF (0-2); WBC Urine 0-5 /HPF (0-5)
[2022-05-20 16:00] LABS: Glucose, Whole Blood 425 mg/dL (60-115)
[2022-05-20 17:15] LABS: Glucose, Whole Blood 402 mg/dL (60-115)
--- NOTE | 2022-05-20 17:35 | P.CONGS_ITS ---
History of Present Illness Consult details Consult date: 05/20/22 Narrative: 52-year-old male referred to me for an abscess on the back. He currently has had a small lump on the back for over a week according to his family. This seemed to have been increasing in size. This had become more painful and tender. He was therefore brought to the ER today. His CAT scan showed what appeared to all be large abscess on the back so I was consulted. He has had some fever and chills at home. He did not have any diagnosis of diabetes but his blood sugars were very high in the ED. He has not seen any doctor in years. Review of Systems Constitutional: Constitutional: Reports chills and Reports fever(s) Cardiovascular: Cardiovascular: Denies chest pain, Denies dyspnea and Denies dyspnea on exertion Respiratory: Respiratory: Denies cough, Denies dyspnea and Denies dyspnea on exertion Gastrointestinal: Gastrointestinal: Denies hematochezia and Denies change in bowel habits Genitourinary: Genitourinary: Denies hematuria and Denies difficulty urinating Musculoskeletal: Musculoskeletal: Denies back pain and Denies limited range of motion Neurologic: Denies focal weakness and Denies convulsions Psychiatric: Psychiatric: Denies depression and Denies mood swings PMFSH Past Medical History Medical History (Updated 05/22/22 @ 12:45 by Joo Sanchez MD) Diabetes DVT (deep venous thrombosis) Severe sepsis Family History Family History (Updated 05/20/22 @ 19:05 by HAYES Brooks) Mother Diabetes Father Diabetes Social History Social History (Updated 05/20/22 @ 19:06 by HAYES Brooks) Household Members: Spouse and Family Household Members Other:: 6 Housing: House Do you presently have visiting nurse or other home services: No Alcohol intake: former Patient Tobacco Use Status: Former Tobacco user Quit Date: 2 wks ago Tobacco use type: Cigarette Cigarettes Per Day: 10 Years Smoked: 30 e-Cigarette/Vaping Use: Never Used Second Hand Smoke Exposure: Yes service: No Current occupational status: disabled Meds Allergies Allergy/AdvReac Type Severity Reaction Status Date / Time No Known Allergies Allergy Verified 08/13/20 15:28 Active Medications: Current Medications Pharmacy Consult (Consult Rx Perform Med Rec) 1 each MISCELLANE ONCE PRN PRN Reason: Consult order Home Medications Medication Instructions Recorded Confirmed Last Taken Type No Known Home Meds 10/18/22 10/18/22 Unknown History Physical Exam Vital Signs: Vital Signs: Last Vital Signs Temp 98.3 F 05/20/22 14:51 Pulse 96 05/20/22 14:51 Resp 18 05/20/22 14:51 BP 96/59 L 05/20/22 14:51 Pulse Ox 94 05/20/22 14:51 O2 Del Method 05/20/22 14:51 BMI result Body Mass Index 30.4 Const: Other: Not very conversant General: comfortable and no acute distress Orientation/consciousness: patient oriented x3 Neck: Neck: Yes no lymphadenopathy Resp: Auscultation: clear to auscultation bilaterally Cardio: Rhythm: regular rhythm GI: Palpation (GI): Soft to palpation, nontender and no guarding Back/Spine/Pelvis: Other: large mass, on the upper back a little to the right of the midline, about 7 cm in widest diameter not tender, boggy Neuro: General: patient oriented x3 Results Labs Result diagrams: 05/21/22 09:25 05/22/22 10:03 Labs: Abnormal lab results 05/20/22 05/20/22 05/20/22 Range/Units 11:49 11:49 11:49 WBC 23.3 H (4.8-10.8) X10*3/uL RBC 5.95 H (4.60-5.80) X10*6/uL Plt Count 455 H (160-400) X10*3/uL Immature Gran % (Auto) 2.5 H (0.0-0.4) % Neut % (Auto) 77.0 H (45-73) % Lymph % (Auto) 9.2 L (20-40) % [place] # (Auto) 2.5 H (0.1-1.2) X10*3/uL Abs Immat Gran (auto) 0.58 H (0.00-0.03) X10*3/uL Absolute Neuts (auto) 17.9 H (2.0-8.3) x10*3/uL ESR 48 H (0-15) MM/HR VBG pH (7.32-7.43) Sodium 126 L (135-145) mmol/L Chloride 82 L (96-108) mmol/L Anion Gap 24 H (12-20) POC Glucose (60-115) mg/dL Random Glucose 682 H* (60-115) mg/dL Calcium 8.1 L D (8.4-10.2) mg/dL C-Reactive Protein 26.52 H (< or = 0.50) mg/dL Total Protein 6.0 L D (6.5-8.0) g/dL Albumin 3.0 L D (3.5-5.0) g/dL Ur Specific [place] (1.005-1.025) Urine Glucose (UA) (Negative) mg/dL 05/20/22 05/20/22 05/20/22 Range/Units 13:13 14:05 15:13 WBC (4.8-10.8) X10*3/uL RBC (4.60-5.80) X10*6/uL Plt Count (160-400) X10*3/uL Immature Gran % (Auto) (0.0-0.4) % Neut % (Auto) (45-73) % Lymph % (Auto) (20-40) % [place] # (Auto) (0.1-1.2) X10*3/uL Abs Immat Gran (auto) (0.00-0.03) X10*3/uL Absolute Neuts (auto) (2.0-8.3) x10*3/uL ESR (0-15) MM/HR VBG pH 7.47 H (7.32-7.43) Sodium (135-145) mmol/L Chloride (96-108) mmol/L Anion Gap (12-20) POC Glucose 593 H* (60-115) mg/dL Random Glucose (60-115) mg/dL Calcium (8.4-10.2) mg/dL C-Reactive Protein (< or = 0.50) mg/dL Total Protein (6.5-8.0) g/dL Albumin (3.5-5.0) g/dL Ur Specific [place] >= 1.030 H (1.005-1.025) Urine Glucose (UA) >=1000 H (Negative) mg/dL 05/20/22 05/20/22 Range/Units 15:54 17:09 WBC (4.8-10.8) X10*3/uL RBC (4.60-5.80) X10*6/uL Plt Count (160-400) X10*3/uL Immature Gran % (Auto) (0.0-0.4) % Neut % (Auto) (45-73) % Lymph % (Auto) (20-40) % [place] # (Auto) (0.1-1.2) X10*3/uL Abs Immat Gran (auto) (0.00-0.03) X10*3/uL Absolute Neuts (auto) (2.0-8.3) x10*3/uL ESR (0-15) MM/HR VBG pH (7.32-7.43) Sodium (135-145) mmol/L Chloride (96-108) mmol/L Anion Gap (12-20) POC Glucose 425 H* 402 H* (60-115) mg/dL Random Glucose (60-115) mg/dL Calcium (8.4-10.2) mg/dL C-Reactive Protein (< or = 0.50) mg/dL Total Protein (6.5-8.0) g/dL Albumin (3.5-5.0) g/dL Ur Specific [place] (1.005-1.025) Urine Glucose (UA) (Negative) mg/dL Short CBC 05/20/22 Range/Units 11:49 WBC 23.3 H (4.8-10.8) X10*3/uL Hgb 16.4 (14.0-18.0) g/dl Hct 47.8 (42.0-52.0) % Plt Count 455 H (160-400) X10*3/uL BMP 05/20/22 11:49 Sodium 126 L Potassium 4.8 Chloride 82 L Carbon Dioxide 25 BUN 14 Creatinine 0.85 Calcium 8.1 L D Liver Function 05/20/22 Range/Units 11:49 Total Bilirubin 0.6 (0.0-1.0) mg/dL Direct Bilirubin 0.2 (0.0-0.5) mg/dL AST 18 (5-37) U/L ALT 15 (0-40) U/L Alkaline Phosphatase 113 D (39-117) U/L Albumin 3.0 L D (3.5-5.0) g/dL Urine 05/20/22 Range/Units 15:13 Urine Color Yellow Urine Appearance Clear Urine pH 5.5 (5.0-9.0) Ur Specific [place] >= 1.030 H (1.005-1.025) Urine Protein Negative (Neg-Trace) mg/dL Urine Glucose (UA) >=1000 H (Negative) mg/dL All other labs normal. Imaging Additional studies: Laboratory Results WBC 23.3 X10*3/uL (4.8-10.8) H 05/20/22 11:49 RBC 5.95 X10*6/uL (4.60-5.80) H 05/20/22 11:49 Hgb 16.4 g/dl (14.0-18.0) 05/20/22 11:49 Hct 47.8 % (42.0-52.0) 05/20/22 11:49 MCV 80.3 fL (80.0-98.0) 05/20/22 11:49 MCH 27.6 pg (27.0-33.0) 05/20/22 11:49 MCHC 34.3 g/dl (31.0-36.0) 05/20/22 11:49 RDW 12.4 % (11.0-16.0) 05/20/22 11:49 Plt Count 455 X10*3/uL (160-400) H 05/20/22 11:49 MPV 10.5 fL (9.4-12.4) 05/20/22 11:49 Immature Gran % (Auto) 2.5 % (0.0-0.4) H 05/20/22 11:49 Neut % (Auto) 77.0 % (45-73) H 05/20/22 11:49 Lymph % (Auto) 9.2 % (20-40) L 05/20/22 11:49 [place] % (Auto) 10.6 % (2-11) 05/20/22 11:49 Eos % (Auto) 0.1 % (0-4) 05/20/22 11:49 Baso % (Auto) 0.6 % (0-2) 05/20/22 11:49 Lymph # (Auto) 2.2 X10*3/uL (1.2-4.9) 05/20/22 11:49 [place] # (Auto) 2.5 X10*3/uL (0.1-1.2) H 05/20/22 11:49 Eos # (Auto) 0.0 X10*3/uL (0.0-0.4) 05/20/22 11:49 Baso # (Auto) 0.1 X10*3/uL (0.0-0.2) 05/20/22 11:49 Abs Immat Gran (auto) 0.58 X10*3/uL (0.00-0.03) H 05/20/22 11:49 Absolute Neuts (auto) 17.9 x10*3/uL (2.0-8.3) H 05/20/22 11:49 Absolute Nucleated RBC 0.000 X10*3/uL (0.0-0.012) 05/20/22 11:49 Nucleated RBC % (auto) 0.0 /100WBC (0.0-0.2) 05/20/22 11:49 Smear Tech's Comments VERIFIED 05/20/22 11:49 ESR 48 MM/HR (0-15) H 05/20/22 11:49 VBG pH 7.47 (7.32-7.43) H 05/20/22 13:13 VBG pCO2 35 mmHg 05/20/22 13:13 VBG pO2 61 mmHg 05/20/22 13:13 VBG HCO3 25 mmol/L (22-26) 05/20/22 13:13 VBG O2 Saturation 91.0 % 05/20/22 13:13 VBG Base Excess 2.7 mmol/L 05/20/22 13:13 Sodium 126 mmol/L (135-145) L 05/20/22 11:49 Potassium 4.8 mmol/L (3.3-5.1) 05/20/22 11:49 Chloride 82 mmol/L (96-108) L 05/20/22 11:49 Carbon Dioxide 25 mmol/L (22-29) 05/20/22 11:49 Anion Gap 24 (12-20) H 05/20/22 11:49 BUN 14 mg/dL (9-16) 05/20/22 11:49 Creatinine 0.85 mg/dL (0.5-1.4) 05/20/22 11:49 Estim Creat Clear Calc 109.9 05/20/22 11:49 Estimated GFR > 60 05/20/22 11:49 POC Glucose 402 mg/dL (60-115) H* 05/20/22 17:09 Random Glucose 682 mg/dL (60-115) H* 05/20/22 11:49 Estimat Average Glucose 352 mg/dL 05/20/22 13:10 Hemoglobin A1c % 13.9 % 05/20/22 13:10 Calcium 8.1 mg/dL (8.4-10.2) L D 05/20/22 11:49 Total Bilirubin 0.6 mg/dL (0.0-1.0) 05/20/22 11:49 Direct Bilirubin 0.2 mg/dL (0.0-0.5) 05/20/22 11:49 AST 18 U/L (5-37) 05/20/22 11:49 ALT 15 U/L (0-40) 05/20/22 11:49 Alkaline Phosphatase 113 U/L (39-117) D 05/20/22 11:49 C-Reactive Protein 26.52 mg/dL (< or = 0.50) H 05/20/22 11:49 Total Protein 6.0 g/dL (6.5-8.0) L D 05/20/22 11:49 Albumin 3.0 g/dL (3.5-5.0) L D 05/20/22 11:49 Urine Color Yellow 05/20/22 15:13 Urine Appearance Clear 05/20/22 15:13 Urine pH 5.5 (5.0-9.0) 05/20/22 15:13 Ur Specific [place] >= 1.030 (1.005-1.025) H 05/20/22 15:13 Urine Protein Negative mg/dL (Neg-Trace) 05/20/22 15:13 Urine Glucose (UA) >=1000 mg/dL (Negative) H 05/20/22 15:13 Urine Ketones Trace mg/dL (Negative) 05/20/22 15:13 Urine Blood Negative (Negative) 05/20/22 15:13 Urine Nitrite Negative (Negative) 05/20/22 15:13 Ur Leukocyte Esterase Negative (Negative) 05/20/22 15:13 Urine RBC 0-2 /HPF (0-2) 05/20/22 15:13 Urine WBC 0-5 /HPF (0-5) 05/20/22 15:13 Ur Squamous Epith Cells 0-2 /HPF (0-2) 05/20/22 15:13 Urine Bacteria None Seen (None Seen) 05/20/22 15:13 Hyaline Casts 0-2 /LPF (0-2) 05/20/22 15:[address] 05/20/22 14:09 IMPRESSION: 1. Superficial fluid collection of the back to the right of midline with internal fluid and gas. This tracks along the right trapezius muscle. This is consistent with abscess. No extension to the bony structures. 2. No acute pulmonary finding. Secretions noted in the trachea and mainstem bronchi. Fleischner guidelines were followed. Assessment and Plan (1) Abscess: Status: Acute He has a very large abscess on the back. I therefore explained to him and his family that we needed to proceed with I&D. I explained the technique of this procedure at bedside. I reviewed the risks, benefits, and alternatives and had given consent verbally. He was placed in a sloppy left lateral decubitus position. The area of the abscess was prepped and draped. Lidocaine 1% was used for local anesthesia. I made a small cruciate incision on the skin using blade 11. And this was carried down through the full-thickness of the skin subcutaneous fat until an abscess cavity was entered. Large amounts of pus was drained. I dilated the opening to allow a suction catheter. With the use of the suction catheter with drain about over 250 cc of pus. Cultures were taken I applied a light Iodoform packing and dressings were applied. He tolerated procedure well. I will do wound care while he is in the hospital. His cultures will be followed. He has been started on empiric antibiotics. Procedures Date of Service Date of Service: 05/20/22
--- NOTE | 2022-05-20 17:45 | P.HPHOSP_ITS ---
History of Present Illness Date of Service: 05/20/22 Attending physician on admission: Joo Sanchez Chief Complaint: cyst right upper back 52-year-old male with history of DVT right lower extremity following surgery on the right ankle presented to the ED earlier today complaining of a cyst on the right upper back pedis present for the last week with progressive increase in size. Is also reporting feeling generally unwell over the last few days. He denies any fevers, chills, lightheadedness, abdominal pain, nausea, vomiting, shortness of breath, palpitations, or chest pains. On arrival patient is afebrile but tachycardic to 120. WBC 23.3 with left shift on arrival, glucose noted to be significantly elevated at 682. Sodium 126, chloride 82, anion gap 24. VBG did not reveal any acidosis. Renal function baseline with creatinine of 0.85, BUN 14. Hemoglobin A1c 13.9%. Patient denies any history of type 2 diabetes though does appear to have had significant hyperglycemia during the ER visit on 08/2020 with glucose of 440. UA showing specific gravity of > 1.030 and > 1000 glucose, trace ketones. Chest CT performed showing superficial fluid collection of the back to the right of midline with internal fluid and gas. This tracks along the right trapezius muscle consistent with abscess. No extension to the bony structures. Patient was also seen and examined by General surgery while in the ED with I&D performed with use of suction catheter draining about 250 cc of pus. Cultures were taken. Patient was started empirically on Zosyn and given 3 L NS bolus. He is also given a total of 10 units regular insulin with improvement in glucose to 402. Reporting 04/12 at abscess site. Patient to be admitted for severe sepsis with abscess and new onset type 2 diabetes. Review of Systems Review of Systems: General: No fevers, rigors, unintentional weight loss. +malaise, +fatigue Cardiovascular: No chest pain, palpitations, or leg edema Respiratory: No shortness of breath, wheezing, cough GI: No abdominal pain, nausea, vomiting, diarrhea, constipation, melena, hematochezia : No dysuria, hematuria Endo: + polydipsia, + polyuria Neuro: No headaches, weakness, paresthesias Skin: No rashes or lesions [facility] Medical History (Updated 05/20/22 @ 20:08 by HAYES Brooks) Diabetes DVT (deep venous thrombosis) Severe sepsis Family History (Updated 05/20/22 @ 19:05 by HAYES Brooks) Mother Diabetes Father Diabetes Social History (Updated 05/20/22 @ 19:06 by HAYES Brooks) Household Members: Spouse and Family Household Members Other:: 6 Housing: House Do you presently have visiting nurse or other home services: No Alcohol intake: former Patient Tobacco Use Status: Former Tobacco user Quit Date: 2 wks ago Tobacco use type: Cigarette Cigarettes Per Day: 10 Years Smoked: 30 e-Cigarette/Vaping Use: Never Used Second Hand Smoke Exposure: Yes service: No Current occupational status: disabled Meds Allergies Allergy/AdvReac Type Severity Reaction Status Date / Time No Known Allergies Allergy Verified 08/13/20 15:28 Active Medications: Current Medications Pharmacy Consult (Consult Rx Perform Med Rec) 1 each MISCELLANE ONCE PRN PRN Reason: Consult order Home Medications Medication Instructions Recorded Confirmed Last Taken Type No Known Home Meds 05/20/22 05/20/22 Unknown History Physical Exam Vital Signs and Narrative: Vital Signs: Last Vital Signs Temp 98.3 F 05/20/22 14:51 Pulse 96 05/20/22 14:51 Resp 18 05/20/22 14:51 BP 96/59 L 05/20/22 14:51 Pulse Ox 94 05/20/22 14:51 O2 Del Method 05/20/22 14:51 BMI result Body Mass Index 30.4 Constitutional - Awake and Alert, No apparent distress Eyes - PERRLA, EOMI Cardiovascular - S1S2, RRR, No edema Respiratory - Normal lung expansion, Normal respiratory effort, No respiratory distress, CTA bilaterally Gastrointestinal - NT / ND; +BS; No rebound or guarding Extremities - no calf tenderness bilaterally, no swelling Skin - Warm/Dry. Surgical dressing in place right mid back with surrounding induration Neurological - Alert & oriented x3, No focal deficit Psychological - Appropriate affect Results Labs CBC and Chem 7: 05/21/22 09:25 05/21/22 09:25 Labs: Laboratory Results - last 24 hr 05/20/22 05/20/22 05/20/22 11:49 11:49 11:49 MCV 80.3 MCH 27.6 MCHC 34.3 RDW 12.4 Plt Count 455 H MPV 10.5 Immature Gran % (Auto) 2.5 H Neut % (Auto) 77.0 H Lymph % (Auto) 9.2 L [place] % (Auto) 10.6 Eos % (Auto) 0.1 Baso % (Auto) 0.6 Lymph # (Auto) 2.2 [place] # (Auto) 2.5 H Eos # (Auto) 0.0 Baso # (Auto) 0.1 Abs Immat Gran (auto) 0.58 H Absolute Neuts (auto) 17.9 H Absolute Nucleated RBC 0.000 Nucleated RBC % (auto) 0.0 Smear Tech's Comments VERIFIED ESR 48 H VBG pH VBG pCO2 VBG pO2 VBG HCO3 VBG O2 Saturation VBG Base Excess Anion Gap 24 H Estim Creat Clear Calc 109.9 Estimated GFR > 60 POC Glucose Random Glucose 682 H* Estimat Average Glucose Hemoglobin A1c % Calcium 8.1 L D Total Bilirubin 0.6 Direct Bilirubin 0.2 AST 18 ALT 15 Alkaline Phosphatase 113 D C-Reactive Protein 26.52 H Total Protein 6.0 L D Albumin 3.0 L D Urine Color Urine Appearance Urine pH Ur Specific [place] Urine Protein Urine Glucose (UA) Urine Ketones Urine Blood Urine Nitrite Ur Leukocyte Esterase Urine RBC Urine WBC Ur Squamous Epith Cells Urine Bacteria Hyaline Casts 05/20/22 05/20/22 05/20/22 13:10 13:13 14:05 MCV MCH MCHC RDW Plt Count MPV Immature Gran % (Auto) Neut % (Auto) Lymph % (Auto) [place] % (Auto) Eos % (Auto) Baso % (Auto) Lymph # (Auto) [place] # (Auto) Eos # (Auto) Baso # (Auto) Abs Immat Gran (auto) Absolute Neuts (auto) Absolute Nucleated RBC Nucleated RBC % (auto) Smear Tech's Comments ESR VBG pH 7.47 H VBG pCO2 35 VBG pO2 61 VBG HCO3 25 VBG O2 Saturation 91.0 VBG Base Excess 2.7 Anion Gap Estim Creat Clear Calc Estimated GFR POC Glucose 593 H* Random Glucose Estimat Average Glucose 352 Hemoglobin A1c % 13.9 Calcium Total Bilirubin Direct Bilirubin AST ALT Alkaline Phosphatase C-Reactive Protein Total Protein Albumin Urine Color Urine Appearance Urine pH Ur Specific [place] Urine Protein Urine Glucose (UA) Urine Ketones Urine Blood Urine Nitrite Ur Leukocyte Esterase Urine RBC Urine WBC Ur Squamous Epith Cells Urine Bacteria Hyaline Casts 05/20/22 05/20/22 05/20/22 15:13 15:54 17:09 MCV MCH MCHC RDW Plt Count MPV Immature Gran % (Auto) Neut % (Auto) Lymph % (Auto) [place] % (Auto) Eos % (Auto) Baso % (Auto) Lymph # (Auto) [place] # (Auto) Eos # (Auto) Baso # (Auto) Abs Immat Gran (auto) Absolute Neuts (auto) Absolute Nucleated RBC Nucleated RBC % (auto) Smear Tech's Comments ESR VBG pH VBG pCO2 VBG pO2 VBG HCO3 VBG O2 Saturation VBG Base Excess Anion Gap Estim Creat Clear Calc Estimated GFR POC Glucose 425 H* 402 H* Random Glucose Estimat Average Glucose Hemoglobin A1c % Calcium Total Bilirubin Direct Bilirubin AST ALT Alkaline Phosphatase C-Reactive Protein Total Protein Albumin Urine Color Yellow Urine Appearance Clear Urine pH 5.5 Ur Specific [place] >= 1.030 H Urine Protein Negative Urine Glucose (UA) >=1000 H Urine Ketones Trace Urine Blood Negative Urine Nitrite Negative Ur Leukocyte Esterase Negative Urine RBC 0-2 Urine WBC 0-5 Ur Squamous Epith Cells 0-2 Urine Bacteria None Seen Hyaline Casts 0-2 Imaging Radiologist's Impressions: Impressions Chest CT 05/20/22 14:09 IMPRESSION: 1. Superficial fluid collection of the back to the right of midline with internal fluid and gas. This tracks along the right trapezius muscle. This is consistent with abscess. No extension to the bony structures. 2. No acute pulmonary finding. Secretions noted in the trachea and mainstem bronchi. Fleischner guidelines were followed. Assessment and Plan (1) Abscess: Status: Acute (2) Diabetes: Status: Acute (3) Severe sepsis: Status: Acute Plan 52-year-old male with with history of DVT right lower extremity following surgery on the right ankle admitted for right upper back abscess with sepsis and new onset uncontrolled type 2 diabetes. # severe sepsis secondary to right upper trapezius abscess -WBC 23.3, tachycardic to 120. Lactic acid 2.3, repeat pending. No hypotension. -given 1 L IVF bolus. Continue IVF -continue Zosyn and vancomycin for MRSA coverage #Abscess right upper trapezius with sepsis -General surgery I&D with 200ml purulent drainage -lactic acid 2.3, repeat pending -given IV Zosyn in ED. Continue Zosyn add vancomycin for MRSA coverage -WBC 23.3 with left shift, ESR 48, CRP 26.52. Follow CBC #new onset type 2 diabetes -A1c- 13.9%. Glucose 682 given 10 units of regular insulin with improvement to 402 -AG 24. Sodium 126, chloride 82. Urine glucose >1000 -Given 5 units lantus in ED. Continue 5 units lantus daily -Humalog on SS -Diabetic diet -POC glucose -Nutrition consult for new onset type 2 diabetes # acute dehydration likely secondary to hyperglycemia -urine specific gravity > 1.030 -renal function stable -continue IVF with LR -monitor BMP #pseudohyponatremia -Secondary to hyperglycemia -Na 126 on arrival, improved to 130 -Insulin as above for management of hyperglycemia -continue IVF -BMP a.m. # history DVT provoked s/p right ankle surgery -no longer on anticoagulation DVT prophylaxis-Lovenox Full code Patient requires inpatient stay of at least 2 midnights due to abscess right upper back with sepsis requiring IV antibiotics and close monitoring to prevent progressive to severe sepsis/shock. Quality Stroke Does the patient have a stroke diagnosis?: No VTE Prior VTE?: No VTE Risk Level:: Medical - moderate - high VTE Device Contraindication: Treatment Not Indicated VTE Drug Contraindication: N/A - Med Ordered
[2022-05-20] MEDS: Insulin Glargine,Hum.rec.anlog 100 UNIT/ML 10 ML VIAL SUBCUT (18:12)
[2022-05-20] MEDS: 0.9 % Sodium Chloride 1,000 ML 125 ML IVCONT (18:18)
[2022-05-20 19:20] VITALS: BP 112/73; PULSE 103; RESP 21; O2SAT 88
[2022-05-20 19:22] VITALS: O2SAT 95
[2022-05-20] MEDS: cefEPime HCl 2 GM in 0.9 % Sodium Chloride 50 ML IV (19:23)
[2022-05-20] MEDS: Enoxaparin Sodium 40 MG/0.4 ML SYRINGE SUBCUT (19:25)
[2022-05-20 19:30] LABS: Anion Gap 17 (12-20); Blood Urea Nitrogen 9 mg/dL (9-16); Calcium 7.4 mg/dL (8.4-10.2); Carbon Dioxide 28 mmol/L (22-29); Chloride 89 mmol/L (96-108); Creatinine Clr Calc Pharmacy 145.9; Estimated Glomerular Filt Rate > 60; Glucose Random 347 mg/dL (60-115); Sodium 130 mmol/L (135-145)
[2022-05-20 19:32] LABS: Lactic Acid 2.3 mmol/L (0.5-2.0)
--- NOTE | 2022-05-20 20:01 | PC.NURSE ---
This RN tied up with critical pt. in another room and this pt. requesting pain medications. Asked another RN to medicate pt.
[2022-05-20 20:05] VITALS: RESP 22
[2022-05-20] MEDS: HYDROmorphone HCl 0.5 MG/0.5 ML SYRINGE 0.25 MG IVPUSH (20:05)
--- NOTE | 2022-05-20 20:44 | PC.NURSE ---
Lactated Ringer's showing as overdue on MAR because per MAR, do not hang until NS infusion is complete
--- NOTE | 2022-05-20 20:45 | PC.NURSE ---
Called Pharmacy to re-time LR. Per Pharmacist, they do not retime fluids and hospital policy is to just hang fluids at different time. Will hang LR at appx. 0200 when NS infusion finishes
--- NOTE | 2022-05-20 20:53 | PC.NURSE ---
Pharmacy [facility]
[2022-05-20 21:07] LABS: Reflex Lactate? Lactic Acid Added
--- NOTE | 2022-05-20 22:04 | MHC.CM.PN ---
IMM 05/20. CM met with admitted patient with bed assignment pending. A&Ox4. Independent. No PCP. New Onset DM. Back abscess/sepsis. Lives with . No DME/services. Will need appointment/referral for PCP and navigation team. Pt given [facility] [place] referral form. HCP reviewed, completed and signed. Copies given. Uploaded into [employer] and [facility] [employer]. HCP/ Chanelle Tsang ([phone]). D/C plan: Home with PCP f/u appointment/navigation referral. Neither made at this time due to lateness of hour. will transport home. CM to follow for d/c needs.
[2022-05-20 22:26] LABS: Lactic Acid 1.2 mmol/L (0.5-2.0)
[2022-05-21] MEDS: cefEPime HCl 2 GM in 0.9 % Sodium Chloride 50 ML IV ×3 (03:06→20:24)
[2022-05-21] MEDS: Lactated Ringers 1,000 ML 125 ML IVCONT ×3 (03:06→20:23)
[2022-05-21 03:07] LABS: COVID-19 Test Negative (Negative)
[2022-05-21 04:52] LABS: Basophils Absolute Auto 0.1 X10*3/uL (0.0-0.2); Basophils Percent Auto 0.6 % (0-2); Eosinophils Absolute Auto 0.1 X10*3/uL (0.0-0.4); Eosinophils Percent Auto 0.4 % (0-4); Hematocrit 41.5 % (42.0-52.0); Hemoglobin 14.2 g/dl (14.0-18.0); Imm Gran Abs Auto 0.43 X10*3/uL (0.00-0.03); Imm Gran Pct Auto 2.6 % (0.0-0.4); Lymphocytes Percent Auto 18.6 % (20-40); MANUAL DIFF FLAG SCAN; Mean Corpuscular HGB Conc 34.2 g/dl (31.0-36.0); Mean Corpuscular Hemoglobin 27.8 pg (27.0-33.0); Mean Corpuscular Volume 81.4 fL (80.0-98.0); Mean Platelet Volume 10.4 fL (9.4-12.4); Monocytes Absolute Auto 1.6 X10*3/uL (0.1-1.2); Monocytes Percent Auto 9.8 % (2-11); Neutrophils Absolute Auto 11.1 x10*3/uL (2.0-8.3); Platelet Count 375 X10*3/uL (160-400); Red Cell Distribution Width 12.4 % (11.0-16.0); SCAN SMEAR FLAG 1; White Blood Count 16.3 X10*3/uL (4.8-10.8)
[2022-05-21 04:59] LABS: SLIDE REVIEW VERIFIED
[2022-05-21 05:07] VITALS: BP 120/76; PULSE 85; RESP 18; TEMP 36.6; O2SAT 97
[2022-05-21 05:13] LABS: Anion Gap 17 (12-20); Blood Urea Nitrogen 8 mg/dL (9-16); Calcium 7.2 mg/dL (8.4-10.2); Carbon Dioxide 26 mmol/L (22-29); Chloride 92 mmol/L (96-108); Creatinine Clr Calc Pharmacy 166.8; Estimated Glomerular Filt Rate > 60; Glucose Random 337 mg/dL (60-115); Potassium 3.7 mmol/L (3.3-5.1); Sodium 131 mmol/L (135-145)
--- NOTE | 2022-05-21 08:05 | HE.PHANOTE ---
re deion continue current dose tnoja
[2022-05-21 08:19] VITALS: BP 126/79; PULSE 92; RESP 94; TEMP 36.5; O2SAT 94
--- NOTE | 2022-05-21 08:38 | PM.EVENT ---
Event Note Date of Service: 05/20/22 Event Note: Patient seen and examined. Came to the hospital because of new onset diabetes as well as abscess in the upper back area. Status post I&D Physical exam-please see H and P Lab imaging reviewed. Has leukocytosis and tachycardia as well as elevated CRP, fingersticks are in 500-600 range Assessment and plan coordinated in H&P note Agree with plan Continue IV antibiotics, fingerstick monitoring, plan to start oral hyperglycemic in the morning. Also continue Lantus for now. Pseudohyponatremia secondary to hyperglycemia.
--- NOTE | 2022-05-21 08:45 | PM.PNGS ---
Subjective Subjective Date of Service: 05/21/22 Interval history: no events overnight pt not offering any info at this time, not very conversant although awake Physical Exam Vital Signs: Vital Signs: Last Vital Signs Temp 97.7 F 05/21/22 08:19 Pulse 92 05/21/22 08:19 Resp 94 H 05/21/22 08:19 BP 126/79 05/21/22 08:19 Pulse Ox 94 05/21/22 08:19 O2 Del Method 05/21/22 08:19 BMI result Body Mass Index 30.4 Const: General: comfortable and no acute distress Resp: Effort & Inspection: normal respiratory effort Cardio: Rate: regular rate GI: Palpation (GI): Soft to palpation Back/Spine/Pelvis: Other: I and D site examined - still with drainage, purulent, but much improved Objective Data Active Medications Acetaminophen (Acetaminophen 325 Mg Tablet) 650 mg PO Q6H PRN PRN Reason: Pain, Mild (Pain Scale 1-3) Docusate Sodium (Docusate Sodium 100 Mg Capsule) 100 mg PO DAILY PRN PRN Reason: Constipation Enoxaparin Sodium (Enoxaparin Sodium 40 Mg/0.4 Ml Syringe) 40 mg SUBCUT Q24H [facility] Last Admin: 05/20/22 19:25 Dose: 40 mg Documented By: DEJA Glipizide (Glipizide 10 Mg Tablet) 10 mg PO BIDWM [facility] Hydromorphone HCl (Hydromorphone Hcl 0.5 Mg/0.5 Ml Syringe) 0.25 mg IVPUSH Q4H PRN; Protocol PRN Reason: Pain, Severe (Pain Scale 7-10) Last Admin: 05/20/22 20:05 Dose: 0.25 mg Documented By: MICHELA Cefepime HCl 2 gm/ Sodium (Chloride) 50 mls @ 100 mls/hr IV Q8H [facility] Last Infusion: 05/21/22 05:34 Dose: 0 mls/hr Documented By: DEJA Vancomycin HCl 1,250 mg/ (Sodium Chloride) 250 mls @ 166.667 mls/hr IV Q12H [facility] Lactated Ringer's (Lr) 1,000 mls @ 125 mls/hr IVCONT .Q8H [facility] Last Admin: 05/21/22 03:06 Dose: 125 mls/hr Documented By: DEJA Insulin Glargine (Insulin Glargine,Hum.Rec.Anlog 100 Unit/Ml 10 Ml Vial) 5 unit SUBCUT DAILY [facility] Metformin HCl (Metformin Hcl 500 Mg Tablet) 500 mg PO BIDWM [facility] Ondansetron HCl (Ondansetron Hcl 4 Mg/2 Ml Vial) 4 mg IVPUSH Q8H PRN PRN Reason: Nausea and Vomiting Oxycodone HCl (Oxycodone Hcl Immed Release 5 Mg Tablet) 5 mg PO Q6H PRN PRN Reason: Pain, Moderate (Pain Scale 4-6 Pharmacy Consult (Consult Rx Perform Med Rec) 1 each MISCELLANE ONCE PRN PRN Reason: Consult order Pharmacy Consult (Consult Rx Vancomycin Dosing) 1 each MISCELLANE DAILY PRN PRN Reason: Consult order Sodium Chloride (0.9 % Sodium Chloride Flush 3 Ml Syringe) 3 ml IVFLUSH QSHIFT [facility] Last Admin: 05/21/22 01:18 Dose: Not Given Documented By: DEJA Non-Admin Reason: Previously Administered Labs CBC & Chem 7: 05/21/22 04:01 05/21/22 04:01 Labs: Laboratory Results - last 24 hr 05/20/22 05/20/22 05/20/22 11:49 11:49 11:49 MCV 80.3 MCH 27.6 MCHC 34.3 RDW 12.4 Plt Count 455 H MPV 10.5 Immature Gran % (Auto) 2.5 H Neut % (Auto) 77.0 H Lymph % (Auto) 9.2 L [place] % (Auto) 10.6 Eos % (Auto) 0.1 Baso % (Auto) 0.6 Lymph # (Auto) 2.2 [place] # (Auto) 2.5 H Eos # (Auto) 0.0 Baso # (Auto) 0.1 Abs Immat Gran (auto) 0.58 H Absolute Neuts (auto) 17.9 H Absolute Nucleated RBC 0.000 Nucleated RBC % (auto) 0.0 Smear Tech's Comments VERIFIED ESR 48 H VBG pH VBG pCO2 VBG pO2 VBG HCO3 VBG O2 Saturation VBG Base Excess Anion Gap 24 H Estim Creat Clear Calc 109.9 Estimated GFR > 60 POC Glucose Random Glucose 682 H* Estimat Average Glucose Hemoglobin A1c % Lactic Acid Calcium 8.1 L D Total Bilirubin 0.6 Direct Bilirubin 0.2 AST 18 ALT 15 Alkaline Phosphatase 113 D C-Reactive Protein 26.52 H Total Protein 6.0 L D Albumin 3.0 L D Urine Color Urine Appearance Urine pH Ur Specific [place] Urine Protein Urine Glucose (UA) Urine Ketones Urine Blood Urine Nitrite Ur Leukocyte Esterase Urine RBC Urine WBC Ur Squamous Epith Cells Urine Bacteria Hyaline Casts COVID-19 ([facility]) COVID-19 Clin Com 05/20/22 05/20/22 05/20/22 13:10 13:13 14:05 MCV MCH MCHC RDW Plt Count MPV Immature Gran % (Auto) Neut % (Auto) Lymph % (Auto) [place] % (Auto) Eos % (Auto) Baso % (Auto) Lymph # (Auto) [place] # (Auto) Eos # (Auto) Baso # (Auto) Abs Immat Gran (auto) Absolute Neuts (auto) Absolute Nucleated RBC Nucleated RBC % (auto) Smear Tech's Comments ESR VBG pH 7.47 H VBG pCO2 35 VBG pO2 61 VBG HCO3 25 VBG O2 Saturation 91.0 VBG Base Excess 2.7 Anion Gap Estim Creat Clear Calc Estimated GFR POC Glucose 593 H* Random Glucose Estimat Average Glucose 352 Hemoglobin A1c % 13.9 Lactic Acid Calcium Total Bilirubin Direct Bilirubin AST ALT Alkaline Phosphatase C-Reactive Protein Total Protein Albumin Urine Color Urine Appearance Urine pH Ur Specific [place] Urine Protein Urine Glucose (UA) Urine Ketones Urine Blood Urine Nitrite Ur Leukocyte Esterase Urine RBC Urine WBC Ur Squamous Epith Cells Urine Bacteria Hyaline Casts COVID-19 ([facility]) COVID-19 Clin Com 05/20/22 05/20/22 05/20/22 15:13 15:54 17:09 MCV MCH MCHC RDW Plt Count MPV Immature Gran % (Auto) Neut % (Auto) Lymph % (Auto) [place] % (Auto) Eos % (Auto) Baso % (Auto) Lymph # (Auto) [place] # (Auto) Eos # (Auto) Baso # (Auto) Abs Immat Gran (auto) Absolute Neuts (auto) Absolute Nucleated RBC Nucleated RBC % (auto) Smear Tech's Comments ESR VBG pH VBG pCO2 VBG pO2 VBG HCO3 VBG O2 Saturation VBG Base Excess Anion Gap Estim Creat Clear Calc Estimated GFR POC Glucose 425 H* 402 H* Random Glucose Estimat Average Glucose Hemoglobin A1c % Lactic Acid Calcium Total Bilirubin Direct Bilirubin AST ALT Alkaline Phosphatase C-Reactive Protein Total Protein Albumin Urine Color Yellow Urine Appearance Clear Urine pH 5.5 Ur Specific [place] >= 1.030 H Urine Protein Negative Urine Glucose (UA) >=1000 H Urine Ketones Trace Urine Blood Negative Urine Nitrite Negative Ur Leukocyte Esterase Negative Urine RBC 0-2 Urine WBC 0-5 Ur Squamous Epith Cells 0-2 Urine Bacteria None Seen Hyaline Casts 0-2 COVID-19 ([facility]) COVID-19 Clin Com 05/20/22 05/20/22 05/20/22 19:04 19:05 22:05 MCV MCH MCHC RDW Plt Count MPV Immature Gran % (Auto) Neut % (Auto) Lymph % (Auto) [place] % (Auto) Eos % (Auto) Baso % (Auto) Lymph # (Auto) [place] # (Auto) Eos # (Auto) Baso # (Auto) Abs Immat Gran (auto) Absolute Neuts (auto) Absolute Nucleated RBC Nucleated RBC % (auto) Smear Tech's Comments ESR VBG pH VBG pCO2 VBG pO2 VBG HCO3 VBG O2 Saturation VBG Base Excess Anion Gap 17 Estim Creat Clear Calc 145.9 Estimated GFR > 60 POC Glucose Random Glucose 347 H D Estimat Average Glucose Hemoglobin A1c % Lactic Acid 2.3 H* 1.2 Calcium 7.4 L D Total Bilirubin Direct Bilirubin AST ALT Alkaline Phosphatase C-Reactive Protein Total Protein Albumin Urine Color Urine Appearance Urine pH Ur Specific [place] Urine Protein Urine Glucose (UA) Urine Ketones Urine Blood Urine Nitrite Ur Leukocyte Esterase Urine RBC Urine WBC Ur Squamous Epith Cells Urine Bacteria Hyaline Casts COVID-19 ([facility]) COVID-19 Clin Com 05/21/22 05/21/22 05/21/22 02:42 04:01 04:01 MCV 81.4 MCH 27.8 MCHC 34.2 RDW 12.4 Plt Count 375 MPV 10.4 Immature Gran % (Auto) 2.6 H Neut % (Auto) 68.0 Lymph % (Auto) 18.6 L [place] % (Auto) 9.8 Eos % (Auto) 0.4 Baso % (Auto) 0.6 Lymph # (Auto) 3.0 [place] # (Auto) 1.6 H Eos # (Auto) 0.1 Baso # (Auto) 0.1 Abs Immat Gran (auto) 0.43 H Absolute Neuts (auto) 11.1 H Absolute Nucleated RBC 0.000 Nucleated RBC % (auto) 0.0 Smear Tech's Comments VERIFIED ESR VBG pH VBG pCO2 VBG pO2 VBG HCO3 VBG O2 Saturation VBG Base Excess Anion Gap 17 Estim Creat Clear Calc 166.8 Estimated GFR > 60 POC Glucose Random Glucose 337 H Estimat Average Glucose Hemoglobin A1c % Lactic Acid Calcium 7.2 L Total Bilirubin Direct Bilirubin AST ALT Alkaline Phosphatase C-Reactive Protein Total Protein Albumin Urine Color Urine Appearance Urine pH Ur Specific [place] Urine Protein Urine Glucose (UA) Urine Ketones Urine Blood Urine Nitrite Ur Leukocyte Esterase Urine RBC Urine WBC Ur Squamous Epith Cells Urine Bacteria Hyaline Casts COVID-19 ([facility]) Negative COVID-19 Clin Com See Note Microbiology Microbiology Results: Microbiology 05/20/22 17:21 Gram Stain - Final Back Procedures Date of Service Date of Service: 05/21/22 Progress Note: A&P Assessment and plan (1) Abscess: Status: Acute Assessment and Plan: S/P [place] D yesterday dressings changed - packing removed wound care ffup cultures control DM Time Spent With Patient Time: Total time spent is greater than 50% in coordination of care (as documented) at patient's floor/unit and/or counseling patient: Quality Stroke Does the patient have a stroke diagnosis?: No VTE Prior VTE?: No VTE Risk Level:: Medical - moderate - high VTE Device Contraindication: Treatment Not Indicated VTE Drug Contraindication: N/A - Med Ordered
[2022-05-21] MEDS: Insulin Glargine,Hum.rec.anlog 100 UNIT/ML 10 ML VIAL SUBCUT ×2 (09:27→14:26)
[2022-05-21] MEDS: HYDROmorphone HCl 0.5 MG/0.5 ML SYRINGE 0.25 MG IVPUSH ×3 (09:28→20:35)
[2022-05-21 09:30] LABS: Hematocrit 42.2 % (42.0-52.0); Hemoglobin 14.4 g/dl (14.0-18.0); Mean Corpuscular HGB Conc 34.1 g/dl (31.0-36.0); Mean Corpuscular Hemoglobin 27.4 pg (27.0-33.0); Mean Corpuscular Volume 80.2 fL (80.0-98.0); Mean Platelet Volume 9.6 fL (9.4-12.4); Platelet Count 383 X10*3/uL (160-400); Red Blood Count 5.26 X10*6/uL (4.60-5.80); Red Cell Distribution Width 12.6 % (11.0-16.0); White Blood Count 15.6 X10*3/uL (4.8-10.8)
[2022-05-21] MEDS: 0.9 % Sodium Chloride Flush 3 ML SYRINGE IVFLUSH ×2 (09:32→18:39)
[2022-05-21] MEDS: glipiZIDE 10 MG TABLET PO ×2 (09:35→19:21)
[2022-05-21] MEDS: vancomycin HCL 1,250 MG in 0.9 % Sodium Chloride 250 ML 166.67 MG IV (09:39)
[2022-05-21 10:10] LABS: Anion Gap 16 (12-20); Blood Urea Nitrogen 7 mg/dL (9-16); Calcium 7.5 mg/dL (8.4-10.2); Carbon Dioxide 26 mmol/L (22-29); Chloride 93 mmol/L (96-108); Creatinine Clr Calc Pharmacy 166.8; Estimated Glomerular Filt Rate > 60; Glucose Random 375 mg/dL (60-115); Potassium 3.9 mmol/L (3.3-5.1); Sodium 131 mmol/L (135-145)
[2022-05-21 12:52] VITALS: BP 133/79; PULSE 99; RESP 18; O2SAT 98
--- NOTE | 2022-05-21 14:06 | HO.PM.IMPN ---
Subjective Subjective Date of Service: 05/21/22 Interval History: New onset diabetes, right upper back area abscess. Review of Systems Still has lot of soreness in the right upper back area, denies any chest pain or shortness of breath or abdominal pain or fever or chills or cough or phlegm. Physical Exam Vital Signs: Vital Signs: Last Vital Signs Temp 97.7 F 05/21/22 08:19 Pulse 99 05/21/22 12:52 Resp 18 05/21/22 12:52 BP 133/79 05/21/22 12:52 Pulse Ox 98 05/21/22 12:52 O2 Del Method 05/21/22 08:19 BMI result Body Mass Index 30.4 Appearance: Alert.? Oriented X3.? In somewhat pain.? Eyes: Pupils equal, round and reactive to light.? Sclera nonicteric.? ENT: Pharynx normal.? Moist mucous membranes. cvs: rrr, [id number] res: clear to auscultation ,no rhonchii or wheezing abd: no rebound or guarding ,nt, bs present. ext pulses present , no cyanosis , right upper back area-dressed with gauze- mild erythema no significant discharge but significantly sore. neuro: axo3 , nonfocal. Objective Data Active Medications Acetaminophen (Acetaminophen 325 Mg Tablet) 650 mg PO Q6H PRN PRN Reason: Pain, Mild (Pain Scale 1-3) Docusate Sodium (Docusate Sodium 100 Mg Capsule) 100 mg PO DAILY PRN PRN Reason: Constipation Enoxaparin Sodium (Enoxaparin Sodium 40 Mg/0.4 Ml Syringe) 40 mg SUBCUT Q24H [facility] Last Admin: 05/20/22 19:25 Dose: 40 mg Documented By: DEJA Glipizide (Glipizide 10 Mg Tablet) 10 mg PO BIDWM [facility] Last Admin: 05/21/22 09:35 Dose: 10 mg Documented By: MISAEL Hydromorphone HCl (Hydromorphone Hcl 0.5 Mg/0.5 Ml Syringe) 0.25 mg IVPUSH Q4H PRN; Protocol PRN Reason: Pain, Severe (Pain Scale 7-10) Last Admin: 05/21/22 09:28 Dose: 0.25 mg Documented By: MISAEL Cefepime HCl 2 gm/ Sodium (Chloride) 50 mls @ 100 mls/hr IV Q8H [facility] Last Admin: 05/21/22 12:45 Dose: 100 mls/hr Documented By: MISAEL Vancomycin HCl 1,250 mg/ (Sodium Chloride) 250 mls @ 166.667 mls/hr IV Q12H [facility] Last Infusion: 05/21/22 13:17 Dose: 166.7 mls/hr Documented By: RISA Lactated Ringer's (Lr) 1,000 mls @ 125 mls/hr IVCONT .Q8H [facility] Last Admin: 05/21/22 10:44 Dose: 125 mls/hr Documented By: MISAEL Insulin Glargine (Insulin Glargine,Hum.Rec.Anlog 100 Unit/Ml 10 Ml Vial) 5 unit SUBCUT DAILY [facility] Last Admin: 05/21/22 09:27 Dose: 5 unit Documented By: MISAEL Metformin HCl (Metformin Hcl 500 Mg Tablet) 500 mg PO BIDWM [facility] Ondansetron HCl (Ondansetron Hcl 4 Mg/2 Ml Vial) 4 mg IVPUSH Q8H PRN PRN Reason: Nausea and Vomiting Oxycodone HCl (Oxycodone Hcl Immed Release 5 Mg Tablet) 5 mg PO Q6H PRN PRN Reason: Pain, Moderate (Pain Scale 4-6 Pharmacy Consult (Consult Rx Perform Med Rec) 1 each MISCELLANE ONCE PRN PRN Reason: Consult order Pharmacy Consult (Consult Rx Vancomycin Dosing) 1 each MISCELLANE DAILY PRN PRN Reason: Consult order Sodium Chloride (0.9 % Sodium Chloride Flush 3 Ml Syringe) 3 ml IVFLUSH QSHIFT [facility] Last Admin: 05/21/22 09:32 Dose: 3 ml Documented By: MISAEL Labs CBC & Chem 7: 05/21/22 09:25 05/21/22 09:25 Labs: Laboratory Results - last 24 hr 05/20/22 05/20/22 05/20/22 14:05 15:13 15:54 MCV MCH MCHC RDW Plt Count MPV Immature Gran % (Auto) Neut % (Auto) Lymph % (Auto) Archer % (Auto) Eos % (Auto) Baso % (Auto) Lymph # (Auto) Archer # (Auto) Eos # (Auto) Baso # (Auto) Abs Immat Gran (auto) Absolute Neuts (auto) Absolute Nucleated RBC Nucleated RBC % (auto) Smear Tech's Comments Anion Gap Estim Creat Clear Calc Estimated GFR POC Glucose 593 H* 425 H* Random Glucose Lactic Acid Calcium Urine Color Yellow Urine Appearance Clear Urine pH 5.5 Ur Specific [place] >= 1.030 H Urine Protein Negative Urine Glucose (UA) >=1000 H Urine Ketones Trace Urine Blood Negative Urine Nitrite Negative Ur Leukocyte Esterase Negative Urine RBC 0-2 Urine WBC 0-5 Ur Squamous Epith Cells 0-2 Urine Bacteria None Seen Hyaline Casts 0-2 COVID-19 ([facility]) COVID-19 Clin Com 05/20/22 05/20/22 05/20/22 17:09 19:04 19:05 MCV MCH MCHC RDW Plt Count MPV Immature Gran % (Auto) Neut % (Auto) Lymph % (Auto) Archer % (Auto) Eos % (Auto) Baso % (Auto) Lymph # (Auto) Archer # (Auto) Eos # (Auto) Baso # (Auto) Abs Immat Gran (auto) Absolute Neuts (auto) Absolute Nucleated RBC Nucleated RBC % (auto) Smear Tech's Comments Anion Gap 17 Estim Creat Clear Calc 145.9 Estimated GFR > 60 POC Glucose 402 H* Random Glucose 347 H D Lactic Acid 2.3 H* Calcium 7.4 L D Urine Color Urine Appearance Urine pH Ur Specific [place] Urine Protein Urine Glucose (UA) Urine Ketones Urine Blood Urine Nitrite Ur Leukocyte Esterase Urine RBC Urine WBC Ur Squamous Epith Cells Urine Bacteria Hyaline Casts COVID-19 ([facility]) COVID-19 Clin Com 05/20/22 05/21/22 05/21/22 22:05 02:42 04:01 MCV 81.4 MCH 27.8 MCHC 34.2 RDW 12.4 Plt Count 375 MPV 10.4 Immature Gran % (Auto) 2.6 H Neut % (Auto) 68.0 Lymph % (Auto) 18.6 L [place] % (Auto) 9.8 Eos % (Auto) 0.4 Baso % (Auto) 0.6 Lymph # (Auto) 3.0 Archer # (Auto) 1.6 H Eos # (Auto) 0.1 Baso # (Auto) 0.1 Abs Immat Gran (auto) 0.43 H Absolute Neuts (auto) 11.1 H Absolute Nucleated RBC 0.000 Nucleated RBC % (auto) 0.0 Smear Tech's Comments VERIFIED Anion Gap Estim Creat Clear Calc Estimated GFR POC Glucose Random Glucose Lactic Acid 1.2 Calcium Urine Color Urine Appearance Urine pH Ur Specific [place] Urine Protein Urine Glucose (UA) Urine Ketones Urine Blood Urine Nitrite Ur Leukocyte Esterase Urine RBC Urine WBC Ur Squamous Epith Cells Urine Bacteria Hyaline Casts COVID-19 ([facility]) Negative COVID-19 Clin Com See Note 05/21/22 05/21/22 05/21/22 04:01 09:25 09:25 MCV 80.2 MCH 27.4 MCHC 34.1 RDW 12.6 Plt Count 383 MPV 9.6 Immature Gran % (Auto) Neut % (Auto) Lymph % (Auto) Archer % (Auto) Eos % (Auto) Baso % (Auto) Lymph # (Auto) Archer # (Auto) Eos # (Auto) Baso # (Auto) Abs Immat Gran (auto) Absolute Neuts (auto) Absolute Nucleated RBC 0.000 Nucleated RBC % (auto) 0.0 Smear Tech's Comments Anion Gap 17 16 Estim Creat Clear Calc 166.8 166.8 Estimated GFR > 60 > 60 POC Glucose Random Glucose 337 H 375 H* Lactic Acid Calcium 7.2 L 7.5 L Urine Color Urine Appearance Urine pH Ur Specific [place] Urine Protein Urine Glucose (UA) Urine Ketones Urine Blood Urine Nitrite Ur Leukocyte Esterase Urine RBC Urine WBC Ur Squamous Epith Cells Urine Bacteria Hyaline Casts COVID-19 ([facility]) COVID-19 Clin Com Microbiology Microbiology Results: Microbiology 05/20/22 17:21 Gram Stain - Final Back Routine Culture - Preliminary No growth to date. Assessment and Plan (1) Severe sepsis: Status: Acute (2) Diabetes: Status: Acute (3) Abscess: Status: Acute (4) Acute hyperglycemia: Status: Acute Plan 52-year-old male with with history of DVT right lower extremity following surgery on the right ankle. admitted for right upper back abscess with sepsis and new onset uncontrolled type 2 diabetes. # severe sepsis secondary to right upper trapezius abscess -WBC 23.3, tachycardic to 120. Lactic acid 2.3, repeat pending. No hypotension. Continue IVF,Zosyn and vancomycin for MRSA coverage #Abscess right upper trapezius with sepsis -General surgery I&D with 200ml purulent drainage -lactic acid 2.3, repeat pending -given IV Zosyn in ED.? Continue Zosyn add vancomycin for MRSA coverage -WBC 23.3 with left shift, ESR 48, CRP 26.52.? Follow CBC surgery following #new onset type 2 diabetes -A1c- 13.9%.? Glucose 682 given 10 units of regular insulin with improvement to 402 -AG 24.? Sodium 126, chloride 82.? Urine glucose >1000 -Given 5 units lantus in ED. Continue 5 units lantus daily -Humalog on SS -Diabetic diet -POC glucose -Nutrition consult for new onset type 2 diabetes-added glipizide. # acute dehydration likely secondary to hyperglycemia -urine specific gravity > 1.030 -renal function stable -continue IVF with LR -monitor BMP #pseudohyponatremia -Secondary to hyperglycemia -Na 126 on arrival, improvin -Insulin as above for management of hyperglycemia -continue IVF -BMP a.m. # history DVT provoked s/p right ankle surgery -no longer on anticoagulation DVT prophylaxis-Lovenox Full code Patient requires inpatient stay :sepsis requiring IV antibiotics , blood culture/wound culture ,also need tight dm ( new) control Quality Stroke Does the patient have a stroke diagnosis?: No VTE Prior VTE?: No VTE Risk Level:: Medical - moderate - high VTE Device Contraindication: Treatment Not Indicated VTE Drug Contraindication: N/A - Med Ordered
[2022-05-21 14:20] LABS: Glucose, Whole Blood 448 mg/dL (60-115)
--- NOTE | 2022-05-21 16:42 | MHC.CLN ---
NUTRITION CONSULT FOR NEW ONSET DM. A1c=13.9. PROVIDED HEALTHY MEAL PLANNING HANDOUT. PATIENT TIRED AT VISIT. STATED THAT WILL REVIEW. RECOMMEND FOLLOW UP WITH OUTPATIENT DIETITIAN.
[2022-05-21 18:19] LABS: Glucose, Whole Blood 295 mg/dL (60-115)
[2022-05-21] MEDS: Insulin Lispro 100 UNIT/ML 3 ML VIAL SUBCUT ×2 (18:39→21:12)
[2022-05-21] MEDS: Enoxaparin Sodium 40 MG/0.4 ML SYRINGE SUBCUT (20:24)
[2022-05-21 20:55] VITALS: BP 116/48; PULSE 55; RESP 15; TEMP 36.7; O2SAT 90
[2022-05-21] MEDS: vancomycin HCL 1,250 MG in 0.9 % Sodium Chloride 250 ML 166.7 MG IV (20:59)
[2022-05-21 21:15] LABS: Glucose, Whole Blood 323 mg/dL (60-115)
[2022-05-21 22:07] VITALS: BMI 30.4
[2022-05-21 22:12] VITALS: BP 121/74; PULSE 89; RESP 18; TEMP 36.6; O2SAT 93
[2022-05-22 00:29] VITALS: BP 100/57; PULSE 87; RESP 16; TEMP 36.1; O2SAT 93
[2022-05-22] MEDS: cefEPime HCl 2 GM in 0.9 % Sodium Chloride 50 ML IV ×3 (03:12→21:08)
[2022-05-22] MEDS: Lactated Ringers 1,000 ML 125 ML IVCONT ×2 (03:15→10:54)
[2022-05-22 03:21] VITALS: BP 96/57; PULSE 86; RESP 16; TEMP 36.3; O2SAT 93
[2022-05-22] MEDS: HYDROmorphone HCl 0.5 MG/0.5 ML SYRINGE 0.25 MG IVPUSH ×3 (03:58→17:35)
[2022-05-22 07:16] VITALS: BP 117/72; PULSE 88; RESP 18; TEMP 37.1; O2SAT 95
[2022-05-22 08:06] LABS: Glucose, Whole Blood 219 mg/dL (60-115)
[2022-05-22] MEDS: glipiZIDE 10 MG TABLET PO ×2 (08:06→16:50)
[2022-05-22] MEDS: Insulin Lispro 100 UNIT/ML 3 ML VIAL SUBCUT ×4 (08:06→21:07)
[2022-05-22] MEDS: Insulin Glargine,Hum.rec.anlog 100 UNIT/ML 10 ML VIAL SUBCUT (08:06)
[2022-05-22] MEDS: Acetaminophen 325 MG TABLET 650 MG PO (08:23)
[2022-05-22] MEDS: oxyCODONE HCl Immed Release 5 MG TABLET PO ×2 (08:24→15:46)
--- NOTE | 2022-05-22 08:57 | PM.PNGS ---
Subjective Subjective Date of Service: 05/22/22 Interval history: No new complaints Physical Exam Vital Signs: Vital Signs: Last Vital Signs Temp 98.7 F 05/22/22 07:16 Pulse 88 05/22/22 07:16 Resp 18 05/22/22 07:16 BP 117/72 05/22/22 07:16 Pulse Ox 95 05/22/22 07:16 O2 Del Method 05/22/22 07:16 BMI result Body Mass Index 30.4 Const: General: comfortable and no acute distress Resp: Effort & Inspection: normal respiratory effort Cardio: Rate: regular rate Back/Spine/Pelvis: Other: I&D site open wound still with drainage Objective Data Active Medications Acetaminophen (Acetaminophen 325 Mg Tablet) 650 mg PO Q6H PRN PRN Reason: Pain, Mild (Pain Scale 1-3) Last Admin: 05/22/22 08:23 Dose: 650 mg Documented By: SHAMA Dextrose (Dextrose 50 % 25 Gm/50 Ml Syringe) 25 gm IVPUSH Q15M PRN; Protocol PRN Reason: per Hypoglycemia Standing Ord. Docusate Sodium (Docusate Sodium 100 Mg Capsule) 100 mg PO DAILY PRN PRN Reason: Constipation Enoxaparin Sodium (Enoxaparin Sodium 40 Mg/0.4 Ml Syringe) 40 mg SUBCUT Q24H [facility] Last Admin: 05/21/22 20:24 Dose: 40 mg Documented By: JAMARI Glipizide (Glipizide 10 Mg Tablet) 10 mg PO BIDWM [facility] Last Admin: 05/22/22 08:06 Dose: 10 mg Documented By: SHAMA Glucose (Glucose Gel 15 Gm Gel..Gram.) 15 gm PO Q15M PRN; Protocol PRN Reason: per Hypoglycemia Standing Ord. Hydromorphone HCl (Hydromorphone Hcl 0.5 Mg/0.5 Ml Syringe) 0.25 mg IVPUSH Q4H PRN; Protocol PRN Reason: Pain, Severe (Pain Scale 7-10) Last Admin: 05/22/22 03:58 Dose: 0.25 mg Documented By: SHARON Cefepime HCl 2 gm/ Sodium (Chloride) 50 mls @ 100 mls/hr IV Q8H [facility] Last Infusion: 05/22/22 03:48 Dose: 0 mls/hr Documented By: SHARON Vancomycin HCl 1,250 mg/ (Sodium Chloride) 250 mls @ 166.667 mls/hr IV Q12H [facility] Last Infusion: 05/22/22 00:21 Dose: 0 mls/hr Documented By: SHARON Lactated Ringer's (Lr) 1,000 mls @ 125 mls/hr IVCONT .Q8H [facility] Last Admin: 05/22/22 03:15 Dose: 125 mls/hr Documented By: SHARON Insulin Glargine (Insulin Glargine,Hum.Rec.Anlog 100 Unit/Ml 10 Ml Vial) 10 unit SUBCUT DAILY [facility] Insulin Human Lispro (Insulin Lispro 100 Unit/Ml 3 Ml Vial) 0 unit SUBCUT QIDACHS [facility]; Protocol Last Admin: 05/22/22 08:06 Dose: 4 unit Documented By: SHAMA Metformin HCl (Metformin Hcl 850 Mg Tablet) 850 mg PO BIDWM [facility] Ondansetron HCl (Ondansetron Hcl 4 Mg/2 Ml Vial) 4 mg IVPUSH Q8H PRN PRN Reason: Nausea and Vomiting Oxycodone HCl (Oxycodone Hcl Immed Release 5 Mg Tablet) 5 mg PO Q6H PRN PRN Reason: Pain, Moderate (Pain Scale 4-6 Last Admin: 05/22/22 08:24 Dose: 5 mg Documented By: SHAMA Pharmacy Consult (Consult Rx Perform Med Rec) 1 each MISCELLANE ONCE PRN PRN Reason: Consult order Pharmacy Consult (Consult Rx Vancomycin Dosing) 1 each MISCELLANE DAILY PRN PRN Reason: Consult order Sodium Chloride (0.9 % Sodium Chloride Flush 3 Ml Syringe) 3 ml IVFLUSH QSHIFT [facility] Last Admin: 05/22/22 08:07 Dose: Not Given Documented By: SHAMA Non-Admin Reason: IV Running Labs CBC & Chem 7: 05/21/22 09:25 05/21/22 09:25 Labs: Laboratory Results - last 24 hr 05/21/22 05/21/22 05/21/22 09:25 09:25 14:14 MCV 80.2 MCH 27.4 MCHC 34.1 RDW 12.6 Plt Count 383 MPV 9.6 Absolute Nucleated RBC 0.000 Nucleated RBC % (auto) 0.0 Anion Gap 16 Estim Creat Clear Calc 166.8 Estimated GFR > 60 POC Glucose 448 H* Random Glucose 375 H* Calcium 7.5 L 05/21/22 05/21/22 05/22/22 18:16 21:09 07:20 MCV MCH MCHC RDW Plt Count MPV Absolute Nucleated RBC Nucleated RBC % (auto) Anion Gap Estim Creat Clear Calc Estimated GFR POC Glucose 295 H 323 H 219 H Random Glucose Calcium Microbiology Microbiology Results: Microbiology 05/20/22 12:58 Blood Culture - Preliminary Blood - Venous No growth after 24 hours. 05/20/22 12:26 Blood Culture - Preliminary Blood - Venous No growth after 24 hours. 05/20/22 17:21 Gram Stain - Final Back Routine Culture - Preliminary No growth to date. Procedures Date of Service Date of Service: 05/22/22 Progress Note: A&P Assessment and plan (1) Abscess: Status: Acute Assessment and Plan: I expressed more pus from the abscess cavity Dressings changed Follow up on cultures Antibiotic treatment Wound care Time Spent With Patient Time: Total time spent is greater than 50% in coordination of care (as documented) at patient's floor/unit and/or counseling patient: Quality Stroke Does the patient have a stroke diagnosis?: No VTE Prior VTE?: No VTE Risk Level:: Medical - moderate - high VTE Device Contraindication: Treatment Not Indicated VTE Drug Contraindication: N/A - Med Ordered
[2022-05-22 09:17] LABS: Vancomycin Trough 6.7 mcg/mL (10.0-20.0)
[2022-05-22 10:45] LABS: Anion Gap 15 (12-20); Blood Urea Nitrogen 9 mg/dL (9-16); Calcium 7.6 mg/dL (8.4-10.2); Carbon Dioxide 27 mmol/L (22-29); Chloride 92 mmol/L (96-108); Creatinine Clr Calc Pharmacy 183.2; Estimated Glomerular Filt Rate > 60; Glucose Random 281 mg/dL (60-115); Potassium 3.9 mmol/L (3.3-5.1); Sodium 130 mmol/L (135-145)
[2022-05-22] MEDS: vancomycin HCL 1,250 MG in 0.9 % Sodium Chloride 250 ML 166.67 MG IV ×2 (10:50→17:28)
[2022-05-22 11:50] LABS: Glucose, Whole Blood 297 mg/dL (60-115)
[2022-05-22 12:00] VITALS: BP 124/68; PULSE 87; RESP 18; TEMP 36.9; O2SAT 96
--- NOTE | 2022-05-22 12:36 | P.PNIM_ITS ---
Subjective Subjective Date of Service: 05/22/22 Interval History: New onset diabetes, right upper back area abscess. Review of Systems Still has lot of soreness in the right upper back area, denies any chest pain or shortness of breath or abdominal pain or fever or chills or cough or phlegm. Physical Exam Vital Signs: Vital Signs: Last Vital Signs Temp 98.4 F 05/22/22 12:00 Pulse 87 05/22/22 12:00 Resp 18 05/22/22 12:00 BP 124/68 05/22/22 12:00 Pulse Ox 96 05/22/22 12:00 O2 Del Method 05/22/22 12:00 BMI result Body Mass Index 30.4 Appearance: Alert.? Oriented X3.? In somewhat pain.? cvs: rrr, [id number] res: clear to auscultation ,no rhonchii or wheezing abd: no rebound or guarding ,nt, bs present. ext pulses present , no cyanosis , right upper back area-dressed with gauze- mild erythema no significant discharge but significantly sore. neuro: axo3 , nonfocal. Objective Data Active Medications Acetaminophen (Acetaminophen 325 Mg Tablet) 650 mg PO Q6H PRN PRN Reason: Pain, Mild (Pain Scale 1-3) Last Admin: 05/22/22 08:23 Dose: 650 mg Documented By: SHAMA Dextrose (Dextrose 50 % 25 Gm/50 Ml Syringe) 25 gm IVPUSH Q15M PRN; Protocol PRN Reason: per Hypoglycemia Standing Ord. Docusate Sodium (Docusate Sodium 100 Mg Capsule) 100 mg PO DAILY PRN PRN Reason: Constipation Enoxaparin Sodium (Enoxaparin Sodium 40 Mg/0.4 Ml Syringe) 40 mg SUBCUT Q24H [facility] Last Admin: 05/21/22 20:24 Dose: 40 mg Documented By: JAMARI Glipizide (Glipizide 10 Mg Tablet) 10 mg PO BIDWM [facility] Last Admin: 05/22/22 08:06 Dose: 10 mg Documented By: SHAMA Glucose (Glucose Gel 15 Gm Gel..Gram.) 15 gm PO Q15M PRN; Protocol PRN Reason: per Hypoglycemia Standing Ord. Hydromorphone HCl (Hydromorphone Hcl 0.5 Mg/0.5 Ml Syringe) 0.25 mg IVPUSH Q4H PRN; Protocol PRN Reason: Pain, Severe (Pain Scale 7-10) Last Admin: 05/22/22 12:05 Dose: 0.25 mg Documented By: SHAMA Cefepime HCl 2 gm/ Sodium (Chloride) 50 mls @ 100 mls/hr IV Q8H [facility] Last Infusion: 05/22/22 03:48 Dose: 0 mls/hr Documented By: SHARON Lactated Ringer's (Lr) 1,000 mls @ 125 mls/hr IVCONT .Q8H [facility] Last Admin: 05/22/22 10:54 Dose: 125 mls/hr Documented By: SHAMA Vancomycin HCl 1,250 mg/ (Sodium Chloride) 250 mls @ 166.667 mls/hr IV Q8H [facility] Last Admin: 05/22/22 10:50 Dose: 166.67 mls/hr Documented By: SHAMA Insulin Glargine (Insulin Glargine,Hum.Rec.Anlog 100 Unit/Ml 10 Ml Vial) 10 unit SUBCUT DAILY [facility] Last Admin: 05/22/22 10:46 Dose: Not Given Documented By: SHAMA Non-Admin Reason: Previously Administered Insulin Human Lispro (Insulin Lispro 100 Unit/Ml 3 Ml Vial) 0 unit SUBCUT QIDACHS [facility]; Protocol Last Admin: 05/22/22 11:58 Dose: 8 unit Documented By: SHAMA Metformin HCl (Metformin Hcl 500 Mg Tablet) 750 mg PO BIDWM [facility] Ondansetron HCl (Ondansetron Hcl 4 Mg/2 Ml Vial) 4 mg IVPUSH Q8H PRN PRN Reason: Nausea and Vomiting Oxycodone HCl (Oxycodone Hcl Immed Release 5 Mg Tablet) 5 mg PO Q6H PRN PRN Reason: Pain, Moderate (Pain Scale 4-6 Last Admin: 05/22/22 08:24 Dose: 5 mg Documented By: SHAMA Pharmacy Consult (Consult Rx Perform Med Rec) 1 each MISCELLANE ONCE PRN PRN Reason: Consult order Pharmacy Consult (Consult Rx Vancomycin Dosing) 1 each MISCELLANE DAILY PRN PRN Reason: Consult order Sodium Chloride (0.9 % Sodium Chloride Flush 3 Ml Syringe) 3 ml IVFLUSH QSHIFT [facility] Last Admin: 05/22/22 08:07 Dose: Not Given Documented By: SHAMA Non-Admin Reason: IV Running Labs CBC & Chem 7: 05/21/22 09:25 05/22/22 10:03 Labs: Laboratory Results - last 24 hr 05/21/22 05/21/22 05/21/22 14:14 18:16 21:09 Anion Gap Estim Creat Clear Calc Estimated GFR POC Glucose 448 H* 295 H 323 H Random Glucose Calcium Vancomycin Trough 05/22/22 05/22/22 05/22/22 07:13 07:20 10:03 Anion Gap Estim Creat Clear Calc 183.2 Estimated GFR > 60 POC Glucose 219 H Random Glucose Calcium Vancomycin Trough 6.7 L 05/22/22 05/22/22 10:03 11:41 Anion Gap 15 Estim Creat Clear Calc 173.0 Estimated GFR > 60 POC Glucose 297 H Random Glucose 281 H Calcium 7.6 L Vancomycin Trough Microbiology Microbiology Results: Microbiology 05/20/22 17:21 Gram Stain - Final Back Routine Culture - Preliminary No growth to date. 05/20/22 12:58 Blood Culture - Preliminary Blood - Venous No growth after 24 hours. 05/20/22 12:26 Blood Culture - Preliminary Blood - Venous No growth after 24 hours. Assessment and Plan (1) Severe sepsis: Status: Acute (2) Diabetes: Status: Acute (3) Abscess: Status: Acute (4) Acute hyperglycemia: Status: Acute (5) Pseudohyponatremia: Status: Acute Plan 52-year-old male with with history of DVT right lower extremity following surgery on the right ankle. ?admitted for right upper back abscess with sepsis and new onset uncontrolled type 2 diabetes. # severe sepsis secondary to right upper trapezius abscess -WBC 23.3-now down to 15, tachycardic and Lactic acid improved. ?Continue IVF,Zosyn and vancomycin for MRSA coverage vanco trough 6.7 , vanco adjusted. #Abscess right upper trapezius with sepsis -General surgery I&D . continue IV Zosyn in ED.? Continue Zosyn add vancomycin for MRSA coverage, ESR 48, CRP 26.52.? surgery following #new onset type 2 diabetes-fs uncontrolled -A1c- 13.9% -Humalog on SS -Diabetic diet -POC glucose continue lantus,addedmetformin, continue glipizide. -Nutrition consult for new onset type 2 diabetes. # acute dehydration likely secondary to hyperglycemia improving continue gentle hydration #pseudohyponatremia -Secondary to hyperglycemia -Na improved 130's , when adjust for hyperglycemia seems sodium to be normal -continue IVF -BMP a.m. # history DVT provoked s/p right ankle surgery-many years ago -no longer on anticoagulation as per pcp. DVT prophylaxis-Lovenox Full code Patient requires inpatient stay :sepsis requiring IV antibiotics , blood culture/wound culture ,also need tight dm ( new) control. Quality Stroke Does the patient have a stroke diagnosis?: No VTE Prior VTE?: No VTE Risk Level:: Medical - moderate - high VTE Device Contraindication: Treatment Not Indicated VTE Drug Contraindication: N/A - Med Ordered
--- NOTE | 2022-05-22 12:42 | HE.PHANOTE ---
RE JOE INCREASING DOSE TO 1250 Q8H, NEXT TROUGH 05/23 @0800
[2022-05-22 15:54] VITALS: BP 132/93; PULSE 87; RESP 18; TEMP 36.4; O2SAT 97
[2022-05-22] MEDS: metFORMIN HCl 500 MG TABLET 750 MG PO (16:50)
[2022-05-22 16:51] LABS: Glucose, Whole Blood 246 mg/dL (60-115)
[2022-05-22 19:45] VITALS: BP 123/79; PULSE 84; RESP 18; TEMP 36.6; O2SAT 92
[2022-05-22 20:24] LABS: Glucose, Whole Blood 296 mg/dL (60-115)
[2022-05-22] MEDS: Enoxaparin Sodium 40 MG/0.4 ML SYRINGE SUBCUT (21:07)
[2022-05-22] MEDS: Lactated Ringers 1,000 ML 80 ML IVCONT (23:20)
[2022-05-23] VITALS: BP 121/73; PULSE 91; RESP 17; TEMP 36.5; O2SAT 94
[2022-05-23] MEDS: HYDROmorphone HCl 0.5 MG/0.5 ML SYRINGE 0.25 MG IVPUSH ×2 (00:31→15:13)
[2022-05-23] MEDS: vancomycin HCL 1,250 MG in 0.9 % Sodium Chloride 250 ML 166.67 MG IV ×3 (01:44→18:21)
[2022-05-23] MEDS: diphenhydrAMINE HCL 25 MG CAPSULE PO (01:51)
[2022-05-23 04:00] VITALS: BP 111/62; PULSE 85; RESP 16; TEMP 36.2; O2SAT 96
[2022-05-23] MEDS: cefEPime HCl 2 GM in 0.9 % Sodium Chloride 50 ML IV ×2 (04:32→12:09)
[2022-05-23 07:45] LABS: Glucose, Whole Blood 272 mg/dL (60-115)
[2022-05-23 08:00] VITALS: BP 122/75; PULSE 89; RESP 15; TEMP 36.4; O2SAT 92
--- NOTE | 2022-05-23 08:01 | P.PNIM_ITS ---
Subjective Subjective Date of Service: 05/23/22 Interval History: dm new ,upper back abcess Review of Systems Still has significant drainage and pain on the upper back area but improving in comparison to yesterday. No fevers, denies any chest pain or shortness of breath or abdominal pain Physical Exam Vital Signs: Vital Signs: Last Vital Signs Temp 97.1 F 05/23/22 04:00 Pulse 85 05/23/22 04:00 Resp 16 05/23/22 04:00 BP 111/62 05/23/22 04:00 Pulse Ox 96 05/23/22 04:00 O2 Del Method 05/23/22 04:00 BMI result Body Mass Index 30.4 Appearance: Alert.? Oriented X3.? In somewhat pain.? cvs: rrr, [id number] res: clear to auscultation ,no rhonchii or wheezing abd: no rebound or guarding ,nt, bs present. ext pulses present , no cyanosis , right upper back area-dressed with gauze- mild erythema , has some discharge,but significantly sore. neuro: axo3 , nonfocal. Objective Data Active Medications Acetaminophen (Acetaminophen 325 Mg Tablet) 650 mg PO Q6H PRN PRN Reason: Pain, Mild (Pain Scale 1-3) Last Admin: 05/22/22 08:23 Dose: 650 mg Documented By: SHAMA Dextrose (Dextrose 50 % 25 Gm/50 Ml Syringe) 25 gm IVPUSH Q15M PRN; Protocol PRN Reason: per Hypoglycemia Standing Ord. Diphenhydramine HCl (Diphenhydramine Hcl 25 Mg Capsule) 25 mg PO Q6H PRN PRN Reason: itching Last Admin: 05/23/22 01:51 Dose: 25 mg Documented By: SHARON Docusate Sodium (Docusate Sodium 100 Mg Capsule) 100 mg PO DAILY PRN PRN Reason: Constipation Enoxaparin Sodium (Enoxaparin Sodium 40 Mg/0.4 Ml Syringe) 40 mg SUBCUT Q24H [facility] Last Admin: 05/22/22 21:07 Dose: 40 mg Documented By: SHARON Glipizide (Glipizide 10 Mg Tablet) 10 mg PO BIDWM [facility] Last Admin: 05/22/22 16:50 Dose: 10 mg Documented By: LILY Glucose (Glucose Gel 15 Gm Gel..Gram.) 15 gm PO Q15M PRN; Protocol PRN Reason: per Hypoglycemia Standing Ord. Hydromorphone HCl (Hydromorphone Hcl 0.5 Mg/0.5 Ml Syringe) 0.25 mg IVPUSH Q4H PRN; Protocol PRN Reason: Pain, Severe (Pain Scale 7-10) Last Admin: 05/23/22 00:31 Dose: 0.25 mg Documented By: SHARON Vancomycin HCl 1,250 mg/ (Sodium Chloride) 250 mls @ 166.667 mls/hr IV Q8H [facility] Last Infusion: 05/23/22 03:39 Dose: 0 mls/hr Documented By: SHARON Cefepime HCl 2 gm/ Sodium (Chloride) 50 mls @ 100 mls/hr IV Q8H [facility] Last Infusion: 05/23/22 05:09 Dose: 0 mls/hr Documented By: SHARON Insulin Glargine (Insulin Glargine,Hum.Rec.Anlog 100 Unit/Ml 10 Ml Vial) 10 unit SUBCUT DAILY [facility] Last Admin: 05/22/22 10:46 Dose: Not Given Documented By: SHAMA Non-Admin Reason: Previously Administered Insulin Human Lispro (Insulin Lispro 100 Unit/Ml 3 Ml Vial) 0 unit SUBCUT Q IDACHS [facility]; Protocol Last Admin: 05/22/22 21:07 Dose: 8 unit Documented By: SHARON Metformin HCl (Metformin Hcl 500 Mg Tablet) 750 mg PO BIDWM [facility] Last Admin: 05/22/22 16:50 Dose: 750 mg Documented By: LILY Ondansetron HCl (Ondansetron Hcl 4 Mg/2 Ml Vial) 4 mg IVPUSH Q8H PRN PRN Reason: Nausea and Vomiting Oxycodone HCl (Oxycodone Hcl Immed Release 5 Mg Tablet) 5 mg PO Q6H PRN PRN Reason: Pain, Moderate (Pain Scale 4-6 Last Admin: 05/22/22 15:46 Dose: 5 mg Documented By: LILY Pharmacy Consult (Consult Rx Perform Med Rec) 1 each MISCELLANE ONCE PRN PRN Reason: Consult order Pharmacy Consult (Consult Rx Vancomycin Dosing) 1 each MISCELLANE DAILY PRN PRN Reason: Consult order Sodium Chloride (0.9 % Sodium Chloride Flush 3 Ml Syringe) 3 ml IVFLUSH QSHIFT [facility] Last Admin: 05/22/22 23:24 Dose: Not Given Documented By: SHARON Non-Admin Reason: IV Running Labs CBC & Chem 7: 05/23/22 08:09 05/23/22 08:09 Labs: Laboratory Results - last 24 hr 05/22/22 05/22/22 05/22/22 07:13 07:20 10:03 Anion Gap Estim Creat Clear Calc 183.2 Estimated GFR > 60 POC Glucose 219 H Random Glucose Calcium Vancomycin Trough 6.7 L 05/22/22 05/22/22 05/22/22 10:03 11:41 16:47 Anion Gap 15 Estim Creat Clear Calc 173.0 Estimated GFR > 60 POC Glucose 297 H 246 H Random Glucose 281 H Calcium 7.6 L Vancomycin Trough 05/22/22 05/23/22 19:48 07:35 Anion Gap Estim Creat Clear Calc Estimated GFR POC Glucose 296 H 272 H Random Glucose Calcium Vancomycin Trough Microbiology Microbiology Results: Microbiology 05/20/22 12:58 Blood Culture - Preliminary Blood - Venous No growth after 48 hours. 05/20/22 12:26 Blood Culture - Preliminary Blood - Venous No growth after 48 hours. 05/20/22 17:21 Gram Stain - Final Back Routine Culture - Preliminary No growth to date. Assessment and Plan (1) Severe sepsis: Status: Acute (2) Diabetes: Status: Acute (3) Abscess: Status: Acute (4) Acute hyperglycemia: Status: Acute (5) Pseudohyponatremia: Status: Acute Plan 52-year-old male with with history of DVT right lower extremity following surgery on the right ankle. ?admitted for right upper back abscess with sepsis and new onset uncontrolled type 2 diabetes. # severe sepsis secondary to right upper trapezius abscess -WBC 23.3-now down to 15, tachycardic and Lactic acid improved. Blood culture negative at 48 hours, wound culture is growing Gram-positives rods ?Continue IVF,Zosyn and vancomycin for MRSA coverage vanco trough 13.7 . #Abscess right upper trapezius with sepsis -General surgery I&D . continue IV Zosyn in ED.? Continue Zosyn / vancomycin for MRSA coverage, ESR 48, CRP 26.52.? surgery following #new onset type 2 diabetes-fs uncontrolled but improving -A1c- 13.9% -Humalog on SS -Diabetic diet -POC glucose adjusted lantus,addedmetformin, continue glipizide. -Nutrition consult for new onset type 2 diabetes. # acute dehydration likely secondary to hyperglycemia improving continue gentle hydration #pseudohyponatremia -Secondary to hyperglycemia -Na improved 130's , when adjust for hyperglycemia seems sodium to be normal -continue IVF -BMP a.m. # history DVT provoked s/p right ankle surgery-many years ago -no longer on anticoagulation as per pcp. DVT prophylaxis-Lovenox Full code Patient requires inpatient stay :sepsis requiring IV antibiotics , wound culture-gram positive rods-identification/senstivities pending ,also need tight dm ( new) control. Quality Stroke Does the patient have a stroke diagnosis?: No VTE Prior VTE?: No VTE Risk Level:: Medical - moderate - high VTE Device Contraindication: Treatment Not Indicated VTE Drug Contraindication: N/A - Med Ordered
[2022-05-23 08:34] LABS: Hematocrit 41.7 % (42.0-52.0); Hemoglobin 13.7 g/dl (14.0-18.0); Mean Corpuscular HGB Conc 32.9 g/dl (31.0-36.0); Mean Corpuscular Hemoglobin 26.7 pg (27.0-33.0); Mean Corpuscular Volume 81.1 fL (80.0-98.0); Mean Platelet Volume 9.6 fL (9.4-12.4); Platelet Count 416 X10*3/uL (160-400); Red Blood Count 5.14 X10*6/uL (4.60-5.80); Red Cell Distribution Width 12.8 % (11.0-16.0); White Blood Count 12.8 X10*3/uL (4.8-10.8)
[2022-05-23] MEDS: glipiZIDE 10 MG TABLET PO ×2 (08:45→17:13)
[2022-05-23] MEDS: metFORMIN HCl 500 MG TABLET 750 MG PO ×2 (08:45→17:13)
--- NOTE | 2022-05-23 08:46 | PM.PNGS ---
Subjective Subjective Date of Service: 05/23/22 Interval history: denies new complaints some pain on back Physical Exam Vital Signs: Vital Signs: Last Vital Signs Temp 97.5 F 05/23/22 08:00 Pulse 89 05/23/22 08:00 Resp 15 05/23/22 08:00 BP 122/75 05/23/22 08:00 Pulse Ox 92 05/23/22 08:00 O2 Del Method 05/23/22 08:00 BMI result Body Mass Index 30.4 Const: General: comfortable and no acute distress Resp: Effort & Inspection: normal respiratory effort Back/Spine/Pelvis: Other: I and D site open, draining, no obvious reaccumulation, no cellulitis Objective Data Active Medications Acetaminophen (Acetaminophen 325 Mg Tablet) 650 mg PO Q6H PRN PRN Reason: Pain, Mild (Pain Scale 1-3) Last Admin: 05/22/22 08:23 Dose: 650 mg Documented By: SHAMA Dextrose (Dextrose 50 % 25 Gm/50 Ml Syringe) 25 gm IVPUSH Q15M PRN; Protocol PRN Reason: per Hypoglycemia Standing Ord. Diphenhydramine HCl (Diphenhydramine Hcl 25 Mg Capsule) 25 mg PO Q6H PRN PRN Reason: itching Last Admin: 05/23/22 01:51 Dose: 25 mg Documented By: SHARON Docusate Sodium (Docusate Sodium 100 Mg Capsule) 100 mg PO DAILY PRN PRN Reason: Constipation Enoxaparin Sodium (Enoxaparin Sodium 40 Mg/0.4 Ml Syringe) 40 mg SUBCUT Q24H [facility] Last Admin: 05/22/22 21:07 Dose: 40 mg Documented By: SHARON Glipizide (Glipizide 10 Mg Tablet) 10 mg PO BIDWM [facility] Last Admin: 05/22/22 16:50 Dose: 10 mg Documented By: LILY Glucose (Glucose Gel 15 Gm Gel..Gram.) 15 gm PO Q15M PRN; Protocol PRN Reason: per Hypoglycemia Standing Ord. Hydromorphone HCl (Hydromorphone Hcl 0.5 Mg/0.5 Ml Syringe) 0.25 mg IVPUSH Q4H PRN; Protocol PRN Reason: Pain, Severe (Pain Scale 7-10) Last Admin: 05/23/22 00:31 Dose: 0.25 mg Documented By: SHARON Vancomycin HCl 1,250 mg/ (Sodium Chloride) 250 mls @ 166.667 mls/hr IV Q8H [facility] Last Infusion: 05/23/22 03:39 Dose: 0 mls/hr Documented By: SHARON Cefepime HCl 2 gm/ Sodium (Chloride) 50 mls @ 100 mls/hr IV Q8H [facility] Last Infusion: 05/23/22 05:09 Dose: 0 mls/hr Documented By: SHARON Insulin Glargine (Insulin Glargine,Hum.Rec.Anlog 100 Unit/Ml 10 Ml Vial) 10 unit SUBCUT DAILY [facility] Last Admin: 05/22/22 10:46 Dose: Not Given Documented By: SHAMA Non-Admin Reason: Previously Administered Insulin Human Lispro (Insulin Lispro 100 Unit/Ml 3 Ml Vial) 0 unit SUBCUT QIDACHS [facility]; Protocol Last Admin: 05/22/22 21:07 Dose: 8 unit Documented By: SHARON Metformin HCl (Metformin Hcl 500 Mg Tablet) 750 mg PO BIDWM [facility] Last Admin: 05/22/22 16:50 Dose: 750 mg Documented By: LILY Ondansetron HCl (Ondansetron Hcl 4 Mg/2 Ml Vial) 4 mg IVPUSH Q8H PRN PRN Reason: Nausea and Vomiting Oxycodone HCl (Oxycodone Hcl Immed Release 5 Mg Tablet) 5 mg PO Q6H PRN PRN Reason: Pain, Moderate (Pain Scale 4-6 Last Admin: 05/22/22 15:46 Dose: 5 mg Documented By: LILY Pharmacy Consult (Consult Rx Perform Med Rec) 1 each MISCELLANE ONCE PRN PRN Reason: Consult order Pharmacy Consult (Consult Rx Vancomycin Dosing) 1 each MISCELLANE DAILY PRN PRN Reason: Consult order Sodium Chloride (0.9 % Sodium Chloride Flush 3 Ml Syringe) 3 ml IVFLUSH QSHIFT [facility] Last Admin: 05/22/22 23:24 Dose: Not Given Documented By: SHARON Non-Admin Reason: IV Running Labs CBC & Chem 7: 05/23/22 08:09 05/22/22 10:03 Labs: Laboratory Results - last 24 hr 05/22/22 05/22/22 05/22/22 07:13 10:03 10:03 MCV MCH MCHC RDW Plt Count MPV Absolute Nucleated RBC Nucleated RBC % (auto) Anion Gap 15 Estim Creat Clear Calc 183.2 173.0 Estimated GFR > 60 > 60 POC Glucose Random Glucose 281 H Calcium 7.6 L Vancomycin Trough 6.7 L 05/22/22 05/22/22 05/22/22 11:41 16:47 19:48 MCV MCH MCHC RDW Plt Count MPV Absolute Nucleated RBC Nucleated RBC % (auto) Anion Gap Estim Creat Clear Calc Estimated GFR POC Glucose 297 H 246 H 296 H Random Glucose Calcium Vancomycin Trough 05/23/22 05/23/22 07:35 08:09 MCV 81.1 MCH 26.7 L MCHC 32.9 RDW 12.8 Plt Count 416 H MPV 9.6 Absolute Nucleated RBC 0.000 Nucleated RBC % (auto) 0.0 Anion Gap Estim Creat Clear Calc Estimated GFR POC Glucose 272 H Random Glucose Calcium Vancomycin Trough Microbiology Microbiology Results: Microbiology 05/20/22 12:58 Blood Culture - Preliminary Blood - Venous No growth after 48 hours. 05/20/22 12:26 Blood Culture - Preliminary Blood - Venous No growth after 48 hours. 05/20/22 17:21 Gram Stain - Final Back Routine Culture - Preliminary No growth to date. Procedures Date of Service Date of Service: 05/23/22 Progress Note: A&P Assessment and plan (1) Abscess: Status: Acute Assessment and Plan: S/P I and D dressing changed more pus drained by squeezing around around I and D site abx - cuktures show no grwoth so far dry dressings daily WBC down Time Spent With Patient Time: Total time spent is greater than 50% in coordination of care (as documented) at patient's floor/unit and/or counseling patient: Quality Stroke Does the patient have a stroke diagnosis?: No VTE Prior VTE?: No VTE Risk Level:: Medical - moderate - high VTE Device Contraindication: Treatment Not Indicated VTE Drug Contraindication: N/A - Med Ordered
[2022-05-23] MEDS: Insulin Lispro 100 UNIT/ML 3 ML VIAL SUBCUT ×3 (08:49→17:13)
[2022-05-23] MEDS: Insulin Glargine,Hum.rec.anlog 100 UNIT/ML 10 ML VIAL 10 UNIT SUBCUT (08:49)
[2022-05-23 08:52] LABS: Creatinine Clr Calc Pharmacy 166.8; Estimated Glomerular Filt Rate > 60
[2022-05-23 09:15] LABS: Vancomycin Trough 13.7 mcg/mL (10.0-20.0)
[2022-05-23] MEDS: Acetaminophen 325 MG TABLET 650 MG PO (09:19)
[2022-05-23] MEDS: oxyCODONE HCl Immed Release 5 MG TABLET PO ×2 (09:20→21:05)
--- NOTE | 2022-05-23 09:29 | HE.PHANOTE ---
RE VANCO SCr stable. Trough returned at 13.7 after changing the frequency to q8h. Worried about dose dumping due to the % change in trough. For now, I will keep the dose the same and get a trough after 3 doses which will be 05/24 @0800 or 24 hours later. Thanks Alex
[2022-05-23 11:35] LABS: Glucose, Whole Blood 327 mg/dL (60-115)
[2022-05-23 11:36] VITALS: BP 105/59; PULSE 90; RESP 16; TEMP 36; O2SAT 93
--- NOTE | 2022-05-23 12:16 | MHC.CM.PN ---
Per MD rounds, no plan for discharge. Pt continues on IV abts.
--- NOTE | 2022-05-23 14:31 | PM.EVENT ---
Event Note Date of Service: 05/23/22 Event Note: called by nurse - note of discolored area on right heel exam shows thick dry eschar, about 4x3 cm right heel no cellulitis no pus sharp excisional debridement done at bedside using scissors fullthickness of skin and part of subcutaneous layer excised wet to dry dressings applied area wrapped in Kerlix keep heel off floor - no weight bearing
[2022-05-23] MEDS: Insulin Glargine,Hum.rec.anlog 100 UNIT/ML 10 ML VIAL SUBCUT (15:06)
[2022-05-23] MEDS: 0.9 % Sodium Chloride Flush 3 ML SYRINGE IVFLUSH (15:07)
[2022-05-23 15:33] VITALS: BP 111/69; PULSE 75; RESP 16; TEMP 36.4; O2SAT 94
[2022-05-23 15:58] LABS: Glucose, Whole Blood 188 mg/dL (60-115)
[2022-05-23 19:45] VITALS: BP 107/69; PULSE 90; RESP 16; TEMP 35.9; O2SAT 93
[2022-05-23 20:45] LABS: Glucose, Whole Blood 144 mg/dL (60-115)
[2022-05-23] MEDS: Enoxaparin Sodium 40 MG/0.4 ML SYRINGE SUBCUT (20:59)
[2022-05-23] MEDS: cefTRIAXone sodium 1 GM in 0.9 % Sodium Chloride 50 ML IV (20:59)
[2022-05-24] VITALS (7 sets, daily range): BP systolic 108–138; BP diastolic 61–87; PULSE 85–104; RESP 15–18; TEMP 36–36.6; O2SAT 92–97
[2022-05-24] MEDS: vancomycin HCL 1,250 MG in 0.9 % Sodium Chloride 250 ML 166.67 MG IV ×3 (02:30→17:24)
[2022-05-24 07:40] LABS: Glucose, Whole Blood 230 mg/dL (60-115)
[2022-05-24] MEDS: HYDROmorphone HCl 0.5 MG/0.5 ML SYRINGE 0.25 MG IVPUSH ×3 (07:59→16:35)
[2022-05-24] MEDS: glipiZIDE 10 MG TABLET PO ×2 (08:01→16:34)
[2022-05-24] MEDS: Insulin Lispro 100 UNIT/ML 3 ML VIAL SUBCUT ×4 (08:01→20:39)
[2022-05-24] MEDS: metFORMIN HCl 500 MG TABLET 750 MG PO ×2 (08:01→16:34)
[2022-05-24] MEDS: 0.9 % Sodium Chloride Flush 3 ML SYRINGE IVFLUSH ×2 (08:01→16:39)
[2022-05-24 08:56] LABS: Estimated Glomerular Filt Rate > 60
[2022-05-24 09:15] LABS: Vancomycin Trough 13.1 mcg/mL (10.0-20.0)
[2022-05-24] MEDS: Insulin Glargine,Hum.rec.anlog 100 UNIT/ML 10 ML VIAL 20 UNIT SUBCUT (10:42)
[2022-05-24 11:32] LABS: Glucose, Whole Blood 277 mg/dL (60-115)
[2022-05-24] MEDS: diphenhydrAMINE HCL 25 MG CAPSULE PO ×2 (11:51→21:08)
--- NOTE | 2022-05-24 14:10 | P.PNIM_ITS ---
Subjective Subjective Date of Service: 05/24/22 Interval History: dm new ,upper back abcess Review of Systems Still has significant drainage and pain on the upper back area but improving in comparison to yesterday. No fevers, denies any chest pain or shortness of breath or abdominal pain Physical Exam Vital Signs: Vital Signs: Last Vital Signs Temp 97.5 F 05/24/22 11:22 Pulse 98 05/24/22 11:22 Resp 15 05/24/22 11:22 BP 111/71 05/24/22 11:22 Pulse Ox 97 05/24/22 11:22 O2 Del Method 05/24/22 11:22 BMI result Body Mass Index 30.4 Appearance: Alert.? Oriented X3.? In somewhat pain.? cvs: rrr, [id number] res: clear to auscultation ,no rhonchii or wheezing abd: no rebound or guarding ,nt, bs present. ext pulses present , no cyanosis , right upper back area-dressed with gauze- mild erythema , has some? discharge,but significantly sore. neuro: axo3 , nonfocal. Objective Data Active Medications Acetaminophen (Acetaminophen 325 Mg Tablet) 650 mg PO Q6H PRN PRN Reason: Pain, Mild (Pain Scale 1-3) Last Admin: 05/23/22 09:19 Dose: 650 mg Documented By: SHAMA Dextrose (Dextrose 50 % 25 Gm/50 Ml Syringe) 25 gm IVPUSH Q15M PRN; Protocol PRN Reason: per Hypoglycemia Standing Ord. Diphenhydramine HCl (Diphenhydramine Hcl 25 Mg Capsule) 25 mg PO Q6H PRN PRN Reason: itching Last Admin: 05/24/22 11:51 Dose: 25 mg Documented By: VIKRAM Docusate Sodium (Docusate Sodium 100 Mg Capsule) 100 mg PO DAILY PRN PRN Reason: Constipation Docusate Sodium (Docusate Sodium 100 Mg Capsule) 100 mg PO BID PRN PRN Reason: Constipation Enoxaparin Sodium (Enoxaparin Sodium 40 Mg/0.4 Ml Syringe) 40 mg SUBCUT Q24H [facility] Last Admin: 05/23/22 20:59 Dose: 40 mg Documented By: SIMRAN Glipizide (Glipizide 10 Mg Tablet) 10 mg PO BIDWM [facility] Last Admin: 05/24/22 08:01 Dose: 10 mg Documented By: VIKRAM Glucose (Glucose Gel 15 Gm Gel..Gram.) 15 gm PO Q15M PRN; Protocol PRN Reason: per Hypoglycemia Standing Ord. Hydromorphone HCl (Hydromorphone Hcl 0.5 Mg/0.5 Ml Syringe) 0.25 mg IVPUSH Q4H PRN; Protocol PRN Reason: Pain, Severe (Pain Scale 7-10) Last Admin: 05/24/22 11:51 Dose: 0.25 mg Documented By: VIKRAM Vancomycin HCl 1,250 mg/ (Sodium Chloride) 250 mls @ 166.667 mls/hr IV Q8H [facility] Last Infusion: 05/24/22 12:20 Dose: 0 mls/hr Documented By: VIKRAM Ceftriaxone Sodium 1 gm/ (Sodium Chloride) 50 mls @ 100 mls/hr IV Q24H [facility] Last Infusion: 05/24/22 02:35 Dose: 0 mls/hr Documented By: SIMRAN Insulin Glargine (Insulin Glargine,Hum.Rec.Anlog 100 Unit/Ml 10 Ml Vial) 20 uni t SUBCUT DAILY [facility] Last Admin: 05/24/22 10:42 Dose: 20 unit Documented By: VIKRAM Insulin Human Lispro (Insulin Lispro 100 Unit/Ml 3 Ml Vial) 0 unit SUBCUT QIDACHS [facility]; Protocol Last Admin: 05/24/22 11:50 Dose: 8 unit Documented By: VIKRAM Metformin HCl (Metformin Hcl 500 Mg Tablet) 750 mg PO BIDWM [facility] Last Admin: 05/24/22 08:01 Dose: 750 mg Documented By: VIKRAM Ondansetron HCl (Ondansetron Hcl 4 Mg/2 Ml Vial) 4 mg IVPUSH Q8H PRN PRN Reason: Nausea and Vomiting Oxycodone HCl (Oxycodone Hcl Immed Release 5 Mg Tablet) 5 mg PO Q6H PRN PRN Reason: Pain, Moderate (Pain Scale 4-6 Last Admin: 05/23/22 21:05 Dose: 5 mg Documented By: SIMRAN Pharmacy Consult (Consult Rx Perform Med Rec) 1 each MISCELLANE ONCE PRN PRN Reason: Consult order Pharmacy Consult (Consult Rx Vancomycin Dosing) 1 each MISCELLANE DAILY PRN PRN Reason: Consult order Polyethylene Glycol (Polyethylene Glycol 3350 17 Gm Powd.Pack) 17 gm PO DAILY [facility] Last Admin: 05/24/22 10:46 Dose: Not Given Documented By: VIKRAM Non-Admin Reason: Patient Refused Sodium Chloride (0.9 % Sodium Chloride Flush 3 Ml Syringe) 3 ml IVFLUSH QSHIFT [facility] Last Admin: 05/24/22 08:01 Dose: 3 ml Documented By: VIKRAM Labs CBC & Chem 7: 05/23/22 08:09 05/24/22 08:24 Labs: Laboratory Results - last 24 hr 05/23/22 05/23/22 05/24/22 15:53 20:31 07:30 Estim Creat Clear Calc Estimated GFR POC Glucose 188 H 144 H 230 H Vancomycin Trough 05/24/22 05/24/22 05/24/22 08:24 08:24 11:23 Estim Creat Clear Calc 173.0 Estimated GFR > 60 POC Glucose 277 H Vancomycin Trough 13.1 Microbiology Microbiology Results: Microbiology 05/20/22 12:26 Blood Culture - Preliminary Blood - Venous Prelim: GPR Gram Stain only 05/20/22 17:21 Gram Stain - Final Back Routine Culture - Final Propionibacterium acnes 05/20/22 12:58 Blood Culture - Preliminary Blood - Venous Prelim: GPR Gram Stain only Assessment and Plan (1) Pseudohyponatremia: Status: Acute (2) Diabetes: Status: Acute (3) Severe sepsis: Status: Acute (4) Abscess: Status: Acute Plan 52-year-old male with with history of DVT right lower extremity following surgery on the right ankle. ?admitted for right upper back abscess with sepsis and new onset uncontrolled type 2 diabetes. # severe sepsis secondary to right upper trapezius abscess -WBC 23.3-now down to 15, tachycardic and? Lactic acid improved. Blood culture negative at 48 hours, wound culture is growing Gram-positives rods ?Continue IVF,Zosyn and vancomycin for MRSA coverage vanco trough 13.1 . #Abscess right upper trapezius with sepsis -General surgery I&D . continue IV Zosyn in ED.? Continue Zosyn / vancomycin for MRSA coverage, ESR 48, CRP 26.52.? surgery following #new onset type 2 diabetes-fs uncontrolled but improving -A1c- 13.9% -Humalog on SS -Diabetic diet -POC glucose adjusted? lantus,addedmetformin, continue glipizide. -Nutrition consult for new onset type 2 diabetes. # acute dehydration likely secondary to hyperglycemia improving continue gentle hydration #pseudohyponatremia -Secondary to hyperglycemia -Na improved 130's , when adjust for hyperglycemia seems sodium to be normal -continue IVF -BMP a.m. # history DVT provoked s/p right ankle surgery-many years ago -no longer on anticoagulation as per pcp. DVT prophylaxis-Lovenox Full code Patient requires inpatient stay :sepsis requiring IV antibiotics , wound culture-gram positive rods-identification/senstivities pending ,also need tight dm ( new) control. Quality Stroke Does the patient have a stroke diagnosis?: No VTE Prior VTE?: No VTE Risk Level:: Medical - moderate - high VTE Device Contraindication: Treatment Not Indicated VTE Drug Contraindication: N/A - Med Ordered
--- NOTE | 2022-05-24 14:15 | P.PNIM_ITS ---
Subjective Subjective Date of Service: 05/25/22 Interval History: dm new ,upper back abcess Review of Systems Still has significant drainage and pain on the upper back area but improving slowly. No fevers, denies any chest pain or shortness of breath or abdominal pain Physical Exam Vital Signs: Vital Signs: Last Vital Signs Temp 97.5 F 05/24/22 11:22 Pulse 98 05/24/22 11:22 Resp 15 05/24/22 11:22 BP 111/71 05/24/22 11:22 Pulse Ox 97 05/24/22 11:22 O2 Del Method 05/24/22 11:22 BMI result Body Mass Index 30.4 Appearance: Alert.? Oriented X3.? In somewhat pain.? cvs: rrr, [id number] res: clear to auscultation ,no rhonchii or wheezing abd: no rebound or guarding ,nt, bs present. ext pulses present , no cyanosis , right upper back area-dressed with gauze- mild erythema , has some? discharge,but significantly sore. neuro: axo3 , nonfocal. Objective Data Active Medications Acetaminophen (Acetaminophen 325 Mg Tablet) 650 mg PO Q6H PRN PRN Reason: Pain, Mild (Pain Scale 1-3) Last Admin: 05/23/22 09:19 Dose: 650 mg Documented By: SHAMA Dextrose (Dextrose 50 % 25 Gm/50 Ml Syringe) 25 gm IVPUSH Q15M PRN; Protocol PRN Reason: per Hypoglycemia Standing Ord. Diphenhydramine HCl (Diphenhydramine Hcl 25 Mg Capsule) 25 mg PO Q6H PRN PRN Reason: itching Last Admin: 05/24/22 11:51 Dose: 25 mg Documented By: VIKRAM Docusate Sodium (Docusate Sodium 100 Mg Capsule) 100 mg PO DAILY PRN PRN Reason: Constipation Docusate Sodium (Docusate Sodium 100 Mg Capsule) 100 mg PO BID PRN PRN Reason: Constipation Enoxaparin Sodium (Enoxaparin Sodium 40 Mg/0.4 Ml Syringe) 40 mg SUBCUT Q24H [facility] Last Admin: 05/23/22 20:59 Dose: 40 mg Documented By: SIMRAN Glipizide (Glipizide 10 Mg Tablet) 10 mg PO BIDWM [facility] Last Admin: 05/24/22 08:01 Dose: 10 mg Documented By: VIKRAM Glucose (Glucose Gel 15 Gm Gel..Gram.) 15 gm PO Q15M PRN; Protocol PRN Reason: per Hypoglycemia Standing Ord. Hydromorphone HCl (Hydromorphone Hcl 0.5 Mg/0.5 Ml Syringe) 0.25 mg IVPUSH Q4H PRN; Protocol PRN Reason: Pain, Severe (Pain Scale 7-10) Last Admin: 05/24/22 11:51 Dose: 0.25 mg Documented By: VIKRAM Vancomycin HCl 1,250 mg/ (Sodium Chloride) 250 mls @ 166.667 mls/hr IV Q8H [facility] Last Infusion: 05/24/22 12:20 Dose: 0 mls/hr Documented By: VIKRAM Ceftriaxone Sodium 1 gm/ (Sodium Chloride) 50 mls @ 100 mls/hr IV Q24H [facility] Last Infusion: 05/24/22 02:35 Dose: 0 mls/hr Documented By: SIMRAN Insulin Glargine (Insulin Glargine,Hum.Rec.Anlog 100 Unit/Ml 10 Ml Vial) 20 unit SUBCUT DAILY [facility] Last Admin: 05/24/22 10:42 Dose: 20 unit Documented By: VIKRAM Insulin Human Lispro (Insulin Lispro 100 Unit/Ml 3 Ml Vial) 0 unit SUBCUT QIDACHS [facility]; Protocol Last Admin: 05/24/22 11:50 Dose: 8 unit Documented By: VIKRAM Metformin HCl (Metformin Hcl 500 Mg Tablet) 750 mg PO BIDWM [facility] Last Admin: 05/24/22 08:01 Dose: 750 mg Documented By: VIKRAM Ondansetron HCl (Ondansetron Hcl 4 Mg/2 Ml Vial) 4 mg IVPUSH Q8H PRN PRN Reason: Nausea and Vomiting Oxycodone HCl (Oxycodone Hcl Immed Release 5 Mg Tablet) 5 mg PO Q6H PRN PRN Reason: Pain, Moderate (Pain Scale 4-6 Last Admin: 05/23/22 21:05 Dose: 5 mg Documented By: SIMRAN Pharmacy Consult (Consult Rx Perform Med Rec) 1 each MISCELLANE ONCE PRN PRN Reason: Consult order Pharmacy Consult (Consult Rx Vancomycin Dosing) 1 each MISCELLANE DAILY PRN PRN Reason: Consult order Polyethylene Glycol (Polyethylene Glycol 3350 17 Gm Powd.Pack) 17 gm PO DAILY [facility] Last Admin: 05/24/22 10:46 Dose: Not Given Documented By: VIKRAM Non-Admin Reason: Patient Refused Sodium Chloride (0.9 % Sodium Chloride Flush 3 Ml Syringe) 3 ml IVFLUSH QSHIFT [facility] Last Admin: 05/24/22 08:01 Dose: 3 ml Documented By: VIKRAM Labs CBC & Chem 7: 05/23/22 08:09 05/25/22 08:36 Labs: Laboratory Results - last 24 hr 05/23/22 05/23/22 05/24/22 15:53 20:31 07:30 Estim Creat Clear Calc Estimated GFR POC Glucose 188 H 144 H 230 H Vancomycin Trough 05/24/22 05/24/22 05/24/22 08:24 08:24 11:23 Estim Creat Clear Calc 173.0 Estimated GFR > 60 POC Glucose 277 H Vancomycin Trough 13.1 Microbiology Microbiology Results: Microbiology 05/20/22 12:26 Blood Culture - Preliminary Blood - Venous Prelim: GPR Gram Stain only 05/20/22 17:21 Gram Stain - Final Back Routine Culture - Final Propionibacterium acnes 05/20/22 12:58 Blood Culture - Preliminary Blood - Venous Prelim: GPR Gram Stain only Assessment and Plan (1) Open wound of right heel: Status: Acute (2) Severe sepsis: Status: Acute (3) Diabetes: Status: Acute (4) Abscess: Status: Acute (5) Acute hyperglycemia: Status: Acute Plan 52-year-old male with with history of DVT right lower extremity following surgery on the right ankle. ?admitted for right upper back abscess with sepsis and new onset uncontrolled type 2 diabetes. # severe sepsis secondary to right upper trapezius abscess -WBC 23.3-now down to 15, tachycardic and? Lactic acid improved. Blood culture and wound culture is growing Gram-positives rods- ?propionibactereium ?Continue IVF,Zosyn and vancomycin for MRSA coverage vanco trough 16.4 . ID eval pending #Abscess right upper trapezius with sepsis -General surgery I&D . continue IV Zosyn in ED.? Continue Zosyn / vancomycin for MRSA coverage, ESR 48, CRP 26.52.? surgery following #new onset type 2 diabetes-fs uncontrolled but improving -A1c- 13.9% -Humalog on SS -Diabetic diet -POC glucose adjusted? lantus,addedmetformin, continue glipizide. -Nutrition consult for new onset type 2 diabetes. # acute dehydration likely secondary to hyperglycemia improving continue gentle hydration #pseudohyponatremia -Secondary to hyperglycemia -Na improved 130's , when adjust for hyperglycemia seems sodium to be normal -continue IVF -BMP a.m. # history DVT provoked s/p right ankle surgery-many years ago -no longer on anticoagulation as per pcp. right foot pressure s/p debridement-sugery followin DVT prophylaxis-Lovenox Full code Patient requires inpatient stay :sepsis requiring IV antibiotics , wound culture-gram positive rods-identification/senstivities pending ,also need tight dm ( new) control Quality Stroke Does the patient have a stroke diagnosis?: No VTE Prior VTE?: No VTE Risk Level:: Medical - moderate - high VTE Device Contraindication: Treatment Not Indicated VTE Drug Contraindication: N/A - Med Ordered
[2022-05-24 15:32] LABS: Glucose, Whole Blood 242 mg/dL (60-115)
[2022-05-24 19:41] LABS: Glucose, Whole Blood 282 mg/dL (60-115)
[2022-05-24] MEDS: Enoxaparin Sodium 40 MG/0.4 ML SYRINGE SUBCUT (20:38)
[2022-05-24] MEDS: cefTRIAXone sodium 1 GM in 0.9 % Sodium Chloride 50 ML IV (20:39)
[2022-05-24] MEDS: Acetaminophen 325 MG TABLET 650 MG PO (20:50)
[2022-05-24] MEDS: oxyCODONE HCl Immed Release 5 MG TABLET PO (20:50)
[2022-05-25 03:02] VITALS: BP 108/71; PULSE 83; RESP 16; TEMP 36.4; O2SAT 96
[2022-05-25] MEDS: vancomycin HCL 1,250 MG in 0.9 % Sodium Chloride 250 ML 166.67 MG IV ×3 (03:08→17:26)
[2022-05-25] MEDS: oxyCODONE HCl Immed Release 5 MG TABLET PO ×2 (03:31→11:54)
[2022-05-25 07:21] VITALS: BP 106/61; PULSE 83; RESP 17; TEMP 36.6; O2SAT 92
[2022-05-25 07:38] LABS: Glucose, Whole Blood 170 mg/dL (60-115)
[2022-05-25] MEDS: Insulin Lispro 100 UNIT/ML 3 ML VIAL SUBCUT ×4 (07:55→20:36)
[2022-05-25] MEDS: Insulin Glargine,Hum.rec.anlog 100 UNIT/ML 10 ML VIAL 20 UNIT SUBCUT (07:56)
[2022-05-25] MEDS: metFORMIN HCl 500 MG TABLET 750 MG PO ×2 (07:56→16:08)
[2022-05-25] MEDS: HYDROmorphone HCl 0.5 MG/0.5 ML SYRINGE 0.25 MG IVPUSH ×3 (07:56→20:35)
[2022-05-25] MEDS: glipiZIDE 10 MG TABLET PO ×2 (07:56→16:08)
[2022-05-25] MEDS: polyethylene glycoL 3350 17 GM POWD.PACK PO (07:57)
[2022-05-25] MEDS: 0.9 % Sodium Chloride Flush 3 ML SYRINGE IVFLUSH ×3 (07:57→20:36)
[2022-05-25 09:02] LABS: Creatinine Clr Calc Pharmacy 163.9; Estimated Glomerular Filt Rate > 60
[2022-05-25 09:22] LABS: Vancomycin Random 16.4 mcg/mL (15-20)
--- NOTE | 2022-05-25 10:22 | HE.PHANOTE ---
VANCO DOSING BASED ON SCR AND TROUGH OF 16.1 DOSE CONTINUED AT 1250Q8. NEXT TROUGH 05/26 @ 2000
[2022-05-25 11:07] VITALS: BP 104/68; PULSE 82; RESP 18; TEMP 36.7; O2SAT 96
[2022-05-25 11:18] LABS: Glucose, Whole Blood 231 mg/dL (60-115)
[2022-05-25 15:45] VITALS: BP 109/70; PULSE 93; RESP 18; TEMP 36.4; O2SAT 93
[2022-05-25 16:16] LABS: Glucose, Whole Blood 187 mg/dL (60-115)
[2022-05-25] MEDS: diphenhydrAMINE HCL 25 MG CAPSULE PO (16:26)
[2022-05-25 19:22] VITALS: BP 132/81; PULSE 99; RESP 18; TEMP 36.6; O2SAT 94
[2022-05-25 19:46] LABS: Glucose, Whole Blood 229 mg/dL (60-115)
[2022-05-25] MEDS: cefTRIAXone sodium 1 GM in 0.9 % Sodium Chloride 50 ML IV (20:35)
[2022-05-25] MEDS: Enoxaparin Sodium 40 MG/0.4 ML SYRINGE SUBCUT (20:36)
[2022-05-26] VITALS (7 sets, daily range): BP systolic 120–152; BP diastolic 62–84; PULSE 90–100; RESP 17–18; TEMP 36–36.9; O2SAT 95–100
[2022-05-26] MEDS: vancomycin HCL 1,250 MG in 0.9 % Sodium Chloride 250 ML 166.67 MG IV ×3 (01:55→17:07)
[2022-05-26] MEDS: HYDROmorphone HCl 0.5 MG/0.5 ML SYRINGE 0.25 MG IVPUSH ×4 (01:59→17:08)
[2022-05-26] MEDS: diphenhydrAMINE HCL 25 MG CAPSULE PO ×2 (03:35→13:16)
[2022-05-26 06:23] LABS: Creatinine Clr Calc Pharmacy 169.8; Estimated Glomerular Filt Rate > 60
[2022-05-26] MEDS: Insulin Lispro 100 UNIT/ML 3 ML VIAL SUBCUT ×4 (07:39→20:14)
[2022-05-26] MEDS: glipiZIDE 10 MG TABLET PO ×2 (07:39→16:35)
[2022-05-26] MEDS: metFORMIN HCl 500 MG TABLET 750 MG PO ×2 (07:39→16:34)
[2022-05-26] MEDS: 0.9 % Sodium Chloride Flush 3 ML SYRINGE IVFLUSH ×3 (07:40→20:13)
[2022-05-26 07:49] LABS: Glucose, Whole Blood 175 mg/dL (60-115)
[2022-05-26] MEDS: Insulin Glargine,Hum.rec.anlog 100 UNIT/ML 10 ML VIAL 20 UNIT SUBCUT (08:57)
[2022-05-26] MEDS: polyethylene glycoL 3350 17 GM POWD.PACK PO (08:57)
[2022-05-26 11:39] LABS: Glucose, Whole Blood 151 mg/dL (60-115)
--- NOTE | 2022-05-26 12:09 | HO.PM.IMPN ---
Subjective Subjective Date of Service: 05/26/22 Interval History: dm new ,upper back abcess Review of Systems Still has significant drainage and pain on the upper back area but improving slowly. No fevers, denies any chest pain or shortness of breath or abdominal pain Physical Exam Vital Signs: Vital Signs: Last Vital Signs Temp 97.2 F 05/26/22 11:13 Pulse 90 05/26/22 11:13 Resp 18 05/26/22 11:13 BP 122/81 05/26/22 11:13 Pulse Ox 95 05/26/22 11:13 O2 Del Method 05/26/22 11:13 BMI result Body Mass Index 30.4 Appearance: Alert.? Oriented X3.? In somewhat pain.? cvs: rrr, [id number] res: clear to auscultation ,no rhonchii or wheezing abd: no rebound or guarding ,nt, bs present. ext pulses present , no cyanosis , right upper back area-dressed with gauze- mild erythema , has some? discharge,but significantly sore. neuro: axo3 , nonfocal. Objective Data Active Medications Acetaminophen (Acetaminophen 325 Mg Tablet) 650 mg PO Q6H PRN PRN Reason: Pain, Mild (Pain Scale 1-3) Last Admin: 05/24/22 20:50 Dose: 650 mg Documented By: SIMRAN Dextrose (Dextrose 50 % 25 Gm/50 Ml Syringe) 25 gm IVPUSH Q15M PRN; Protocol PRN Reason: per Hypoglycemia Standing Ord. Diphenhydramine HCl (Diphenhydramine Hcl 25 Mg Capsule) 25 mg PO Q6H PRN PRN Reason: itching Last Admin: 05/26/22 03:35 Dose: 25 mg Documented By: DEVAN Docusate Sodium (Docusate Sodium 100 Mg Capsule) 100 mg PO DAILY PRN PRN Reason: Constipation Docusate Sodium (Docusate Sodium 100 Mg Capsule) 100 mg PO BID PRN PRN Reason: Constipation Enoxaparin Sodium (Enoxaparin Sodium 40 Mg/0.4 Ml Syringe) 40 mg SUBCUT Q24H [facility] Last Admin: 05/25/22 20:36 Dose: 40 mg Documented By: DEVAN Glipizide (Glipizide 10 Mg Tablet) 10 mg PO BIDWM [facility] Last Admin: 05/26/22 07:39 Dose: 10 mg Documented By: LIZA Glucose (Glucose Gel 15 Gm Gel..Gram.) 15 gm PO Q15M PRN; Protocol PRN Reason: per Hypoglycemia Standing Ord. Hydromorphone HCl (Hydromorphone Hcl 0.5 Mg/0.5 Ml Syringe) 0.25 mg IVPUSH Q4H PRN; Protocol PRN Reason: Pain, Severe (Pain Scale 7-10) Last Admin: 05/26/22 08:58 Dose: 0.25 mg Documented By: LIZA Vancomycin HCl 1,250 mg/ (Sodium Chloride) 250 mls @ 166.667 mls/hr IV Q8H [facility] Last Infusion: 05/26/22 10:37 Dose: 0 mls/hr Documented By: LIZA Ceftriaxone Sodium 1 gm/ (Sodium Chloride) 50 mls @ 100 mls/hr IV Q24H [facility] Last Infusion: 05/25/22 21:20 Dose: 0 mls/hr Documented By: DEVAN Insulin Glargine (Insulin Glargine,Hum.Rec.Anlog 100 Unit/Ml 10 Ml Vial) 20 unit SUBCUT DAILY [facility] Last Admin: 05/26/22 08:57 Dose: 20 unit Documented By: LIZA Insulin Human Lispro (Insulin Lispro 100 Unit/Ml 3 Ml Vial) 0 unit SUBCUT QIDACHS [facility]; Protocol Last Admin: 05/26/22 11:45 Dose: 2 unit Documented By: LIZA Metformin HCl (Metformin Hcl 500 Mg Tablet) 750 mg PO BIDWM [facility] Last Admin: 05/26/22 07:39 Dose: 750 mg Documented By: LIZA Ondansetron HCl (Ondansetron Hcl 4 Mg/2 Ml Vial) 4 mg IVPUSH Q8H PRN PRN Reason: Nausea and Vomiting Pharmacy Consult (Consult Rx Perform Med Rec) 1 each MISCELLANE ONCE PRN PRN Reason: Consult order Pharmacy Consult (Consult Rx Vancomycin Dosing) 1 each MISCELLANE DAILY PRN PRN Reason: Consult order Polyethylene Glycol (Polyethylene Glycol 3350 17 Gm Powd.Pack) 17 gm PO DAILY [facility] Last Admin: 05/26/22 08:57 Dose: 17 gm Documented By: LIZA Sodium Chloride (0.9 % Sodium Chloride Flush 3 Ml Syringe) 3 ml IVFLUSH QSHIFT [facility] Last Admin: 05/26/22 07:40 Dose: 3 ml Documented By: LIZA Labs CBC & Chem 7: 05/23/22 08:09 05/26/22 05:27 Labs: Laboratory Results - last 24 hr 05/25/22 05/25/22 05/26/22 15:48 19:24 05:27 Estim Creat Clear Calc 169.8 Estimated GFR > 60 POC Glucose 187 H 229 H 05/26/22 05/26/22 07:19 11:11 Estim Creat Clear Calc Estimated GFR POC Glucose 175 H 151 H Microbiology Microbiology Results: Microbiology 05/20/22 12:26 Blood Culture - Preliminary Blood - Venous Gram positive [place] 05/20/22 12:58 Blood Culture - Preliminary Blood - Venous Gram positive [place] Assessment and Plan (1) Open wound of right heel: Status: Acute (2) Severe sepsis: Status: Acute (3) Diabetes: Status: Acute (4) Abscess: Status: Acute (5) Bacteremia: Status: Acute (6) Propionibacterium infection: Status: Acute Plan 52-year-old male with with history of DVT right lower extremity following surgery on the right ankle. ?admitted for right upper back abscess with sepsis and new onset uncontrolled type 2 diabetes. # severe sepsis secondary to right upper trapezius abscess -WBC 23.3-now down to 15, tachycardic and? Lactic acid improved. Blood culture and wound culture is growing Gram-positives rods-?propionibactereium ?Continue vancomycin ,repeat blood cultures . vanco trough 16.4 yesterday. ID eval pending #Abscess right upper trapezius with sepsis -General surgery I&D . continue IV vancomycin. ESR 48, CRP 26.52.? surgery following #new onset type 2 diabetes-fs uncontrolled but improving -A1c- 13.9% -Humalog on SS -Diabetic diet -POC glucose adjusted? lantus,addedmetformin, continue glipizide. -Nutrition consult for new onset type 2 diabetes. # acute dehydration likely secondary to hyperglycemia improving continue gentle hydration #pseudohyponatremia -Secondary to hyperglycemia -Na improved 130's , when adjust for hyperglycemia seems sodium to be normal -continue IVF -BMP a.m. # history DVT provoked s/p right ankle surgery-many years ago -no longer on anticoagulation as per pcp. right foot pressure s/p debridement-sugery followin DVT prophylaxis-Lovenox Full code Patient requires inpatient stay :sepsis requiring IV antibiotics , wound culture-gram positive rods-identification/senstivities pending, repeat blood cultures ,also need tight dm ( new) control Quality Stroke Does the patient have a stroke diagnosis?: No VTE Prior VTE?: No VTE Risk Level:: Medical - moderate - high VTE Device Contraindication: Treatment Not Indicated VTE Drug Contraindication: N/A - Med Ordered
--- NOTE | 2022-05-26 14:01 | MHC.CM.PN ---
CM continues to follow for d/c planning needs. No change in d/c plan @ this time.
[2022-05-26 16:32] LABS: Glucose, Whole Blood 277 mg/dL (60-115)
[2022-05-26] MEDS: Acetaminophen 325 MG TABLET 650 MG PO (16:35)
[2022-05-26] MEDS: Enoxaparin Sodium 40 MG/0.4 ML SYRINGE SUBCUT (20:13)
[2022-05-26] MEDS: cefTRIAXone sodium 1 GM in 0.9 % Sodium Chloride 50 ML IV (20:14)
[2022-05-26 20:24] LABS: Glucose, Whole Blood 153 mg/dL (60-115)
[2022-05-26 20:38] LABS: Vancomycin Trough 25.5 mcg/mL (10.0-20.0)
--- NOTE | 2022-05-26 21:29 | HE.PHANOTE ---
Vancomycin Dosing Addendum Patient had a level drawn today at 2000, patient received a dose of 1250 mg at 1700. Nursing gave dose at 1700 that was due at 1800. 1 hour earlier dosing done. Then, lab should have been pulled for 2200, as next dose was due at 2400. With these two instances, its believed that the level pulled today at 2000 is inappropriate and does not depict a true level. Levels should be drawn 2 hours before next dose, this allows us to see patterns in clearing, once timing is off, the level can not be determined to be appropriate. I believe patients lab was drawn too early and this is why his levels were high. [facility] continues to recommend the patients current regimen of 1250 mg Q8H with a AUC of 482mg/L/hr. Will continue with regimen, put another level to be drawn tomorrow morning at 0800 so pharmacy can follow.
[2022-05-27] VITALS (8 sets, daily range): BP systolic 100–137; BP diastolic 60–84; PULSE 91–100; RESP 17–18; TEMP 35.7–36.6; O2SAT 92–97
[2022-05-27] MEDS: HYDROmorphone HCl 0.5 MG/0.5 ML SYRINGE 0.25 MG IVPUSH ×5 (03:51→21:32)
[2022-05-27] MEDS: diphenhydrAMINE HCL 25 MG CAPSULE PO ×4 (03:54→22:16)
[2022-05-27 07:43] LABS: Glucose, Whole Blood 160 mg/dL (60-115)
[2022-05-27] MEDS: Insulin Lispro 100 UNIT/ML 3 ML VIAL SUBCUT ×3 (07:48→21:27)
[2022-05-27] MEDS: 0.9 % Sodium Chloride Flush 3 ML SYRINGE IVFLUSH ×2 (07:48→16:16)
[2022-05-27] MEDS: metFORMIN HCl 500 MG TABLET 750 MG PO ×2 (07:49→16:12)
[2022-05-27] MEDS: glipiZIDE 10 MG TABLET PO ×2 (07:49→16:12)
[2022-05-27 08:29] LABS: Creatinine Clr Calc Pharmacy 166.8; Estimated Glomerular Filt Rate > 60
[2022-05-27 08:38] LABS: Vancomycin Random 8.7 mcg/mL (15-20)
[2022-05-27] MEDS: polyethylene glycoL 3350 17 GM POWD.PACK PO (09:31)
[2022-05-27] MEDS: Insulin Glargine,Hum.rec.anlog 100 UNIT/ML 10 ML VIAL 20 UNIT SUBCUT (09:31)
--- NOTE | 2022-05-27 09:54 | HO.PM.IMPN ---
Subjective Subjective Date of Service: 05/27/22 Interval History: f/u on abscess of the back interval history: no fever, some pain at the site Review of Systems no fever some pain Physical Exam Vital Signs: Vital Signs: Last Vital Signs Temp 97.2 F 05/27/22 07:18 Pulse 91 05/27/22 07:18 Resp 18 05/27/22 07:18 BP 100/60 05/27/22 07:18 Pulse Ox 93 05/27/22 07:18 O2 Del Method 05/27/22 07:18 BMI result Body Mass Index 30.4 Const: Other: ?Appearance: Alert.? Oriented X3.? In somewhat pain.? cvs: rrr, [id number] res: clear to auscultation ,no rhonchii or wheezing abd: no rebound or guarding ,nt, bs present. ext pulses present , no cyanosis , right upper back area-dressed with gauze- mild erythema , has some? discharge,but significantly sore. neuro: axo3 , nonfocal. Objective Data Active Medications Acetaminophen (Acetaminophen 325 Mg Tablet) 650 mg PO Q6H PRN PRN Reason: Pain, Mild (Pain Scale 1-3) Last Admin: 05/26/22 16:35 Dose: 650 mg Documented By: LIZA Dextrose (Dextrose 50 % 25 Gm/50 Ml Syringe) 25 gm IVPUSH Q15M PRN; Protocol PRN Reason: per Hypoglycemia Standing Ord. Diphenhydramine HCl (Diphenhydramine Hcl 25 Mg Capsule) 25 mg PO Q6H PRN PRN Reason: itching Last Admin: 05/27/22 09:31 Dose: 25 mg Documented By: LIZA Docusate Sodium (Docusate Sodium 100 Mg Capsule) 100 mg PO DAILY PRN PRN Reason: Constipation Docusate Sodium (Docusate Sodium 100 Mg Capsule) 100 mg PO BID PRN PRN Reason: Constipation Enoxaparin Sodium (Enoxaparin Sodium 40 Mg/0.4 Ml Syringe) 40 mg SUBCUT Q24H [facility] Last Admin: 05/26/22 20:13 Dose: 40 mg Documented By: DEVAN Glipizide (Glipizide 10 Mg Tablet) 10 mg PO BIDWM [facility] Last Admin: 05/27/22 07:49 Dose: 10 mg Documented By: LIZA Glucose (Glucose Gel 15 Gm Gel..Gram.) 15 gm PO Q15M PRN; Protocol PRN Reason: per Hypoglycemia Standing Ord. Hydromorphone HCl (Hydromorphone Hcl 0.5 Mg/0.5 Ml Syringe) 0.25 mg IVPUSH Q4H PRN; Protocol PRN Reason: Pain, Severe (Pain Scale 7-10) Last Admin: 05/27/22 07:48 Dose: 0.25 mg Documented By: LIZA Vancomycin HCl 1,250 mg/ (Sodium Chloride) 250 mls @ 166.667 mls/hr IV Q8H [facility] [place] Last Admin: 05/27/22 02:26 Dose: Not Given Documented By: DEVAN Non-Admin Reason: trough 25.47 Ceftriaxone Sodium 1 gm/ (Sodium Chloride) 50 mls @ 100 mls/hr IV Q24H [facility] Last Infusion: 05/26/22 21:11 Dose: 0 mls/hr Documented By: DEVAN Insulin Glargine (Insulin Glargine,Hum.Rec.Anlog 100 Unit/Ml 10 Ml Vial) 20 unit SUBCUT DAILY [facility] [place] Last Admin: 05/27/22 09:31 Dose: 20 unit Documented By: LIZA Insulin Human Lispro (Insulin Lispro 100 Unit/Ml 3 Ml Vial) 0 unit SUBCUT QIDACHS [facility] [place]; Protocol Last Admin: 05/27/22 07:48 Dose: 2 unit Documented By: LIZA Metformin HCl (Metformin Hcl 500 Mg Tablet) 750 mg PO BIDWM [facility] [place] Last Admin: 05/27/22 07:49 Dose: 750 mg Documented By: LIZA Ondansetron HCl (Ondansetron Hcl 4 Mg/2 Ml Vial) 4 mg IVPUSH Q8H PRN PRN Reason: Nausea and Vomiting Pharmacy Consult (Consult Rx Perform Med Rec) 1 each MISCELLANE ONCE PRN PRN Reason: Consult order Pharmacy Consult (Consult Rx Vancomycin Dosing) 1 each MISCELLANE DAILY PRN PRN Reason: Consult order Polyethylene Glycol (Polyethylene Glycol 3350 17 Gm Powd.Pack) 17 gm PO DAILY [facility] [place] Last Admin: 05/27/22 09:31 Dose: 17 gm Documented By: LIZA Sodium Chloride (0.9 % Sodium Chloride Flush 3 Ml Syringe) 3 ml IVFLUSH QSHIFT [facility] Last Admin: 05/27/22 07:48 Dose: 3 ml Documented By: LIZA Labs CBC & Chem 7: 05/23/22 08:09 05/27/22 08:02 Labs: Laboratory Results - last 24 hr 05/26/22 05/26/22 05/26/22 11:11 15:55 19:41 Estim Creat Clear Calc Estimated GFR POC Glucose 151 H 277 H 153 H Vancomycin Trough Random Vancomycin 05/26/22 05/27/22 05/27/22 20:04 07:39 08:02 Estim Creat Clear Calc 166.8 Estimated GFR > 60 POC Glucose 160 H Vancomycin Trough 25.5 H* Random Vancomycin 05/27/22 08:02 Estim Creat Clear Calc Estimated GFR POC Glucose Vancomycin Trough Random Vancomycin 8.7 L Assessment and Plan (1) Open wound of right heel: Status: Acute (2) Severe sepsis: Status: Acute (3) Diabetes: Status: Acute (4) Abscess: Status: Acute (5) Bacteremia: Status: Acute (6) Propionibacterium infection: Status: Acute Plan 52-year-old male with with history of DVT right lower extremity following surgery on the right ankle. ?admitted for right upper back abscess with sepsis and new onset uncontrolled type 2 diabetes. # severe sepsis secondary to right upper trapezius abscess -WBC 23.3-now down to 15, tachycardic and? Lactic acid improved. Blood culture and wound culture is growing Gram-positives rods and propionibactereium Continue vancomycin , adjust level as needed ID eval pending #Abscess right upper trapezius with sepsis -I and D done by gen surgery #new onset type 2 diabetes-fs uncontrolled but improving -A1c- 13.9% -Humalog on SS -Diabetic diet -POC glucose continue lantus, metformin, and glipizide. -Nutrition consult for new onset type 2 diabetes. # acute dehydration likely secondary to hyperglycemia--resolved #pseudohyponatremia due to hyperglycemia -resolved # history DVT provoked s/p right ankle surgery-many years ago -no longer on anticoagulation as per pcp. right foot pressure ulcer s/p debridement-sugery followin DVT prophylaxis-Lovenox Full code Need for inpatient: :sepsis requiring IV antibiotics , wound culture-gram positive rods-identification/senstivities pending, repeat blood cultures ,also need tight dm ( new) control Quality Stroke Does the patient have a stroke diagnosis?: No VTE Prior VTE?: No VTE Risk Level:: Medical - moderate - high VTE Device Contraindication: Treatment Not Indicated VTE Drug Contraindication: N/A - Med Ordered
[2022-05-27 10:22] LABS: Anion Gap 18 (12-20); Blood Urea Nitrogen 9 mg/dL (9-16); Carbon Dioxide 23 mmol/L (22-29); Chloride 102 mmol/L (96-108); Glucose Random 160 mg/dL (60-115); Potassium 4.4 mmol/L (3.3-5.1); Sodium 139 mmol/L (135-145)
[2022-05-27] MEDS: vancomycin HCL 1,250 MG in 0.9 % Sodium Chloride 250 ML 166.67 MG IV ×2 (10:22→17:54)
--- NOTE | 2022-05-27 10:30 | HE.PHANOTE ---
VANCO DOSE ADJUSTMENT BASED ON INCORRECTLY DRAWN TROUGH AND AM TROUGH AND SCR OF TROUGH-8.7 AND SCR-0.56. DOSE RESTARTED AT 1250Q8. NEXT TROUGH 05/28 @ 0800
[2022-05-27 10:33] LABS: Calcium 8.7 mg/dL (8.4-10.2)
--- NOTE | 2022-05-27 11:11 | P.CNID_ITS ---
History of Present Illness Data of Consult Service Date: 05/26/22 Requesting physician: Joo Sanchez Primary Care Provider: None Physician HPI Reason for consult: p. acnes bacteria,back lesion He presents with back pain and lesion upper back with swelling. This is presents about a week and leaking clear yellow fluid. Blood cultures P acnes He has new DM Review of Systems Review of Systems: Yes all other systems are reviewed and are negative PMFSH Past Medical History Medical History Diabetes DVT (deep venous thrombosis) Severe sepsis Family History Family History Mother Diabetes Father Diabetes Social History Social History Household Members: Spouse and Family Household Members Other:: 6 Housing: House Do you presently have visiting nurse or other home services: No Alcohol intake: former Patient Tobacco Use Status: Former Tobacco user Quit Date: 2 wks ago Tobacco use type: Cigarette Cigarettes Per Day: 10 Years Smoked: 30 e-Cigarette/Vaping Use: Never Used Second Hand Smoke Exposure: Yes service: No Current occupational status: disabled Meds Allergies Allergy/AdvReac Type Severity Reaction Status Date / Time No Known Allergies Allergy Verified 08/13/20 15:28 Active Medications: Current Medications Acetaminophen (Acetaminophen 325 Mg Tablet) 650 mg PO Q6H PRN PRN Reason: Pain, Mild (Pain Scale 1-3) Last Admin: 05/26/22 16:35 Dose: 650 mg Dextrose (Dextrose 50 % 25 Gm/50 Ml Syringe) 25 gm IVPUSH Q15M PRN; Protocol PRN Reason: per Hypoglycemia Standing Ord. Diphenhydramine HCl (Diphenhydramine Hcl 25 Mg Capsule) 25 mg PO Q6H PRN PRN Reason: itching Last Admin: 05/27/22 09:31 Dose: 25 mg Docusate Sodium (Docusate Sodium 100 Mg Capsule) 100 mg PO DAILY PRN PRN Reason: Constipation Docusate Sodium (Docusate Sodium 100 Mg Capsule) 100 mg PO BID PRN PRN Reason: Constipation Enoxaparin Sodium (Enoxaparin Sodium 40 Mg/0.4 Ml Syringe) 40 mg SUBCUT Q24H LINA Last Admin: 05/26/22 20:13 Dose: 40 mg Glipizide (Glipizide 10 Mg Tablet) 10 mg PO BIDWM [facility] Last Admin: 05/27/22 07:49 Dose: 10 mg Glucose (Glucose Gel 15 Gm Gel..Gram.) 15 gm PO Q15M PRN; Protocol PRN Reason: per Hypoglycemia Standing Ord. Hydromorphone HCl (Hydromorphone Hcl 0.5 Mg/0.5 Ml Syringe) 0.25 mg IVPUSH Q4H PRN; Protocol PRN Reason: Pain, Severe (Pain Scale 7-10) Last Admin: 05/27/22 07:48 Dose: 0.25 mg Ceftriaxone Sodium 1 gm/ (Sodium Chloride) 50 mls @ 100 mls/hr IV Q24H [facility] Last Infusion: 05/26/22 21:11 Dose: Infused Vancomycin HCl 1,250 mg/ (Sodium Chloride) 250 mls @ 166.667 mls/hr IV Q8H [facility] Last Admin: 05/27/22 10:22 Dose: 166.67 mls/hr Insulin Glargine (Insulin Glargine,Hum.Rec.Anlog 100 Unit/Ml 10 Ml Vial) 20 unit SUBCUT DAILY [facility] Last Admin: 05/27/22 09:31 Dose: 20 unit Insulin Human Lispro (Insulin Lispro 100 Unit/Ml 3 Ml Vial) 0 unit SUBCUT QIDACHS [facility]; Protocol Last Admin: 05/27/22 07:48 Dose: 2 unit Metformin HCl (Metformin Hcl 500 Mg Tablet) 750 mg PO BIDWM [facility] Last Admin: 05/27/22 07:49 Dose: 750 mg Ondansetron HCl (Ondansetron Hcl 4 Mg/2 Ml Vial) 4 mg IVPUSH Q8H PRN PRN Reason: Nausea and Vomiting Pharmacy Consult (Consult Rx Perform Med Rec) 1 each MISCELLANE ONCE PRN PRN Reason: Consult order Pharmacy Consult (Consult Rx Vancomycin Dosing) 1 each MISCELLANE DAILY PRN PRN Reason: Consult order Polyethylene Glycol (Polyethylene Glycol 3350 17 Gm Powd.Pack) 17 gm PO DAILY [facility] Last Admin: 05/27/22 09:31 Dose: 17 gm Sodium Chloride (0.9 % Sodium Chloride Flush 3 Ml Syringe) 3 ml IVFLUSH QSHIFT [facility] Last Admin: 05/27/22 07:48 Dose: 3 ml Home Medications Medication Instructions Recorded Confirmed Last Taken Type No Known Home Meds 05/20/22 05/20/22 Unknown History Physical Exam Vital Signs: Vital Signs: Last Vital Signs Temp 97.2 F 05/27/22 07:18 Pulse 91 05/27/22 07:18 Resp 18 05/27/22 07:18 BP 100/60 05/27/22 07:18 Pulse Ox 93 05/27/22 07:18 O2 Del Method 05/27/22 07:18 BMI result Body Mass Index 30.4 Const: General: cooperative HEENT: Head: Yes normal to inspection Face and sinus: Yes normal facial exam Mouth: Normal oral and palatal mucosa present Teeth and gingiva: dentition normal Eyes: General: appearance normal, both eyes and all related structures Pup ils: Equal, round and reactive pupils present Resp: Effort & Inspection: normal respiratory effort Cardio: Rate: regular rate Rhythm: regular rhythm GI: Palpation (GI): Soft to palpation and nontender Back/Spine/Pelvis: Other: indurated redness upper back,clear yellow drainage Skin: General skin exam: no rashes or lesions noted Neuro: General: moves all extremities Cranial nerves: Yes Equal, round and reactive pupils present Extrem: General: Yes normal to inspection Psych: Appearance: grossly normal Results Labs CBC & Chem 7: 05/23/22 08:09 05/27/22 08:02 Labs: BMP 05/27/22 08:02 Sodium 139 Potassium 4.4 Chloride 102 Carbon Dioxide 23 BUN 9 Creatinine 0.56 Calcium 8.7 D Microbiology Microbiology Results: Microbiology 05/20/22 12:26 Blood - Venous Blood Culture - Preliminary Gram positive [place] 05/20/22 12:58 Blood - Venous Blood Culture - Preliminary Gram positive [place] 05/20/22 17:21 Back Gram Stain - Final 05/20/22 17:21 Back Routine Culture - Final Propionibacterium acnes Assessment and Plan (1) Propionibacterium infection: Status: Acute Bacteremia likely from upper back area abscess He has no signs of infection elsewhere or endocarditis (2) Diabetes: Status: Acute (3) Abscess: Status: Acute Plan Continue Vancomycin for now. Can add Ceftriaxone if slow response 2 g daily Echo evaluate endocarditis On discharge po Doxycycline or Ceftin for two weeks when improved Stop Zosyn Recheck blood culture Surgery follow back area.
[2022-05-27 11:24] LABS: Glucose, Whole Blood 230 mg/dL (60-115)
[2022-05-27 16:18] LABS: Glucose, Whole Blood 128 mg/dL (60-115)
[2022-05-27 20:01] LABS: Glucose, Whole Blood 183 mg/dL (60-115)
[2022-05-27] MEDS: cefTRIAXone sodium 1 GM in 0.9 % Sodium Chloride 50 ML IV (21:26)
[2022-05-27] MEDS: Enoxaparin Sodium 40 MG/0.4 ML SYRINGE SUBCUT (21:27)
[2022-05-28] VITALS (19 sets, daily range): BP systolic 110–206; BP diastolic 68–123; PULSE 12–156; RESP 18–32; TEMP 34.9–36.5; O2SAT 89–100
--- NOTE | 2022-05-28 | ECG_ITS ---
Test Reason : SOB Blood Pressure : / mmHG Vent. Rate : 156 BPM Atrial Rate : 156 BPM P-R Int : 142 ms QRS Dur : 096 ms QT Int : 326 ms P-R-T Axes : 038 012 069 degrees QTc Int : 525 ms Poor data quality Sinus tachycardia Anteroseptal infarct , age undetermined Abnormal ECG No previous ECGs available Referred By: Cindy Justice Electronically Signed By:MARLI FREEMAN MD
[2022-05-28] MEDS: 0.9 % Sodium Chloride Flush 3 ML SYRINGE IVFLUSH ×3 (01:45→16:19)
[2022-05-28] MEDS: vancomycin HCL 1,250 MG in 0.9 % Sodium Chloride 250 ML 166.67 MG IV ×3 (01:47→18:36)
[2022-05-28] MEDS: HYDROmorphone HCl 0.5 MG/0.5 ML SYRINGE 0.25 MG IVPUSH ×4 (01:55→16:13)
--- NOTE | 2022-05-28 07:00 | CA_ITS ---
Transthoracic Echocardiogram Patient (Last, First, Middle): Dmitriy Tsang, Gender: Male Date of : 1970 Age: 52 Procedure Date: 05/28/2022 Procedure Type: Transthoracic Echocardiogram Location: S3E Height: 172. cm Weight: 91. kg BSA: 2.04 m2 Heart Rate: 100 bpm BP: 123 / 85 mmHg It Support Consultant: FILIBERTO Referring MD: Jimmy Arizmendi MD Fish Tender: Don Herron MD Symptoms: bacteremia, elevated troponin, possible [place] Study Quality: Adequate/Contrast ECG Rhythm: Sinus with extra beats Conclusions: - 1. Mildly dilated left ventricle with severe LV systolic dysfunction with LVEF of 25-30% with regional wall motion abnormality consistent with ischemic cardiomyopathy 2. No significant abnormality of cardiac valvular Doppler 3. Mildly dilated ascending aorta at 3.8 cm 4. Trivial pericardial effusion Findings Procedure Information Contrast agent, definity, is being given per protocol without apparent complications. Left Ventricle Mildly increased left ventricular cavity size. There is normal left ventricular wall thickness. The left ventricular systolic function is severely decreased. The visually estimated ejection fraction is between 25 30%. Diastolic function is indeterminate on the basis of available data. Wall Motion Rest Echo Findings The anterolateral wall, inferolateral wall, the apical inferior, basal anterior, mid inferior, mid inferoseptal, and basal anteroseptal segments are hypokinetic. The apex, apical anterior, basal inferior, mid anterior, apical lateral, apical septum, basal inferoseptal, and mid anteroseptal segments are akinetic. Right Ventricle Normal right ventricular cavity size and systolic function. Atria The left atrium is likely dilated. There is lipomatous hypertrophy of the interatrial septum. There is no evidence of interatrial shunt. The right atrium is normal in size. Aortic Valve The aortic valve was not well visualized. There is no aortic valve stenosis. There is no aortic valve regurgitation. Mitral Valve There is mild anterior and posterior mitral leaflet thickening. There is trace mitral valve regurgitation. There is no mitral valve stenosis. Pulmonic Valve The pulmonic valve was not well visualized. Tricuspid Valve Likely normal tricuspid valve structure and function. Tricuspid regurgitation envelope is inadequate for calculation of right ventricular systolic pressure. Mildly elevated right atrial pressure. Great Vessels The pulmonary artery was not well visualized. There is mild dilatation of the ascending aorta measuring 3.80 cm. Venous The inferior vena cava is normal in size and collapses greater than 50% with inspiration. Pericardium/Pleural There is a trivial loculated pericardial effusion overlying the left ventricle. Prior Study Comparison No prior study available for comparison. Measurements 2D Linear Measurements IVSd: 0.81 0.6-0.9/0.6-1.0 cm LVIDd: 6.16 3.9-5.3/4.2-5.9 cm LVIDd Index: 3.02 2.4-3.2/2.2-3.1 cm/m2 LVIDs: 5.24 2.0-3.6 cm LVPWd: 1.04 0.7-1.1 cm LA Diam: 4.00 2.7-3.8/3.0-4.0 cm LAIDs Index: 1.96 1.5-2.3 cm/m2 LV Mass: 290.78 67-162/88-224 g LV Mass Index: 142.54 43-95/49-115 g/m2 LVOT Diam: 1.90 3.0+(-)1.3 cm 2D Systolic Function EF 4C: 31.30 >55% EF 2C: 29.20 >55% EF BiP: 30.00 >55% Mitral Valve E'Lateral: 7.14 E'Medial: 4.22 Aortic Valve AoV Pk Cooper: 1.17 AoV Mn Cooper: 0.90 AoV VTI: 0.22 AoV Pk Grad: 5.00 Aov Mn Grad: 4.00 NAZANIN Cont.VTI: 2.64 LVOT LVOT Pk Cooper: 1.16 LVOT Mn Cooper: 0.81 LVOT VTI: 0.20 LVOT Pk Grad: 5.00 LVOT Mn Grad: 3.00 LVOT Diam: 1.90 LVOT Area: 2.84 Diastolic Function E'Medial: 4.22 E' Laterial: 7.14 Right Ventricle TAPSE (mm): 19.90 TVS' Cooper: 13.90 Tricuspid Valve RA Press: 8.00 Great Vessels Aorta Sinus of Valsalva: 3.80 2.0-3.5 cm Ao Asc: 3.80 2.1-3.4 cm Pulmonary Valve PV Pk Cooper: 0.88 Peak PV Grad: 3.00 Updated in Other Vendor System with Status of Final Don Herron MD electronically signed on 05/28/2022 5:39:31 PM with status of Final
[2022-05-28] MEDS: glipiZIDE 10 MG TABLET PO ×2 (07:49→18:36)
[2022-05-28] MEDS: metFORMIN HCl 500 MG TABLET 750 MG PO ×2 (07:49→18:36)
[2022-05-28] MEDS: Insulin Glargine,Hum.rec.anlog 100 UNIT/ML 10 ML VIAL 20 UNIT SUBCUT (07:50)
[2022-05-28] MEDS: polyethylene glycoL 3350 17 GM POWD.PACK PO (07:50)
[2022-05-28] MEDS: diphenhydrAMINE HCL 25 MG CAPSULE PO ×2 (07:54→16:18)
[2022-05-28 08:11] LABS: Glucose, Whole Blood 131 mg/dL (60-115)
[2022-05-28 08:32] LABS: Vancomycin Trough 17.2 mcg/mL (10.0-20.0)
[2022-05-28 08:40] LABS: Creatinine Clr Calc Pharmacy 163.9; Estimated Glomerular Filt Rate > 60
--- NOTE | 2022-05-28 09:42 | HE.PHANOTE ---
RE: vanco keeping dose at 1250mg Q8H with predicted AUC 494mg/L; next level to b drawn 05/29/22 @0800
--- NOTE | 2022-05-28 11:26 | P.PNIM_ITS ---
Subjective Subjective Date of Service: 05/28/22 Interval History: f/u on abscess of the back interval history: no fever, some pain at the site of infction Review of Systems no fever some pain Physical Exam Vital Signs: Vital Signs: Last Vital Signs Temp 96.8 F 05/28/22 11:21 Pulse 108 H 05/28/22 11:21 Resp 18 05/28/22 11:21 BP 123/81 05/28/22 11:21 Pulse Ox 97 05/28/22 11:21 O2 Del Method 05/28/22 11:21 BMI result Body Mass Index 30.4 Const: Other: ?Appearance: Alert.? Oriented X3.? In somewhat pain.? cvs: rrr, [id number] res: clear to auscultation ,no rhonchii or wheezing abd: no rebound or guarding ,nt, bs present. ext pulses present , no cyanosis , right upper back area-dressed with gauze- mild erythema , has some? discharge,but significantly sore. neuro: axo3 , nonfocal. Objective Data Active Medications Acetaminophen (Acetaminophen 325 Mg Tablet) 650 mg PO Q6H PRN PRN Reason: Pain, Mild (Pain Scale 1-3) Last Admin: 05/26/22 16:35 Dose: 650 mg Documented By: LIZA Dextrose (Dextrose 50 % 25 Gm/50 Ml Syringe) 25 gm IVPUSH Q15M PRN; Protocol PRN Reason: per Hypoglycemia Standing Ord. Diphenhydramine HCl (Diphenhydramine Hcl 25 Mg Capsule) 25 mg PO Q6H PRN PRN Reason: itching Last Admin: 05/28/22 07:54 Dose: 25 mg Documented By: DARRYL Docusate Sodium (Docusate Sodium 100 Mg Capsule) 100 mg PO DAILY PRN PRN Reason: Constipation Docusate Sodium (Docusate Sodium 100 Mg Capsule) 100 mg PO BID PRN PRN Reason: Constipation Enoxaparin Sodium (Enoxaparin Sodium 40 Mg/0.4 Ml Syringe) 40 mg SUBCUT Q24H [facility] Last Admin: 05/27/22 21:27 Dose: 40 mg Documented By: KENZIE Glipizide (Glipizide 10 Mg Tablet) 10 mg PO BIDWM [facility] Last Admin: 05/28/22 07:49 Dose: 10 mg Documented By: DARRYL Glucose (Glucose Gel 15 Gm Gel..Gram.) 15 gm PO Q15M PRN; Protocol PRN Reason: per Hypoglycemia Standing Ord. Hydromorphone HCl (Hydromorphone Hcl 0.5 Mg/0.5 Ml Syringe) 0.25 mg IVPUSH Q4H PRN; Protocol PRN Reason: Pain, Severe (Pain Scale 7-10) Last Admin: 05/28/22 07:54 Dose: 0.25 mg Documented By: DARRYL Ceftriaxone Sodium 1 gm/ (Sodium Chloride) 50 mls @ 100 mls/hr IV Q24H [facility] Last Infusion: 05/27/22 22:17 Dose: 0 mls/hr Documented By: KENZIE Vancomycin HCl 1,250 mg/ (Sodium Chloride) 250 mls @ 166.667 mls/hr IV Q8H [facility] Last Infusion: 05/28/22 03:33 Dose: 166.67 mls/hr Documented By: PALAK Insulin Glargine (Insulin Glargine,Hum.Rec.Anlog 100 Unit/Ml 10 Ml Vial) 20 unit SUBCUT DAILY [facility] Last Admin: 05/28/22 07:50 Dose: 20 unit Documented By: DARRYL Insulin Human Lispro (Insulin Lispro 100 Unit/Ml 3 Ml Vial) 0 unit SUBCUT QIDACHS [facility]; Protocol Last Admin: 05/28/22 07:49 Dose: Not Given Documented By: DARRYL Non-Admin Reason: No Insulin Coverage Metformin HCl (Metformin Hcl 500 Mg Tablet) 750 mg PO BIDWM [facility] Last Admin: 05/28/22 07:49 Dose: 750 mg Documented By: DARRYL Ondansetron HCl (Ondansetron Hcl 4 Mg/2 Ml Vial) 4 mg IVPUSH Q8H PRN PRN Reason: Nausea and Vomiting Pharmacy Consult (Consult Rx Perform Med Rec) 1 each MISCELLANE ONCE PRN PRN Reason: Consult order Pharmacy Consult (Consult Rx Vancomycin Dosing) 1 each MISCELLANE DAILY PRN PRN Reason: Consult order Polyethylene Glycol (Polyethylene Glycol 3350 17 Gm Powd.Pack) 17 gm PO DAILY [facility] Last Admin: 05/28/22 07:50 Dose: 17 gm Documented By: DARRYL Sodium Chloride (0.9 % Sodium Chloride Flush 3 Ml Syringe) 3 ml IVFLUSH QSHIFT [facility] Last Admin: 05/28/22 07:49 Dose: 3 ml Documented By: DARRYL Labs CBC & Chem 7: 05/23/22 08:09 05/28/22 07:53 Labs: Laboratory Results - last 24 hr 05/27/22 05/27/22 05/28/22 15:44 19:34 07:34 Estim Creat Clear Calc Estimated GFR POC Glucose 128 H 183 H 131 H Vancomycin Trough 05/28/22 05/28/22 07:53 07:53 Estim Creat Clear Calc 163.9 Estimated GFR > 60 POC Glucose Vancomycin Trough 17.2 Microbiology Microbiology Results: Microbiology 05/26/22 12:08 Blood Culture - Preliminary Blood - Venous No growth after 24 hours. 05/26/22 12:08 Blood Culture - Preliminary Blood - Venous No growth after 24 hours. Assessment and Plan (1) Open wound of right heel: Status: Acute (2) Severe sepsis: Status: Acute (3) Diabetes: Status: Acute (4) Abscess: Status: Acute (5) Bacteremia: Status: Acute (6) Propionibacterium infection: Status: Acute Plan 52-year-old male with with history of DVT right lower extremity following surgery on the right ankle. ?admitted for right upper back abscess with sepsis and new onset uncontrolled type 2 diabetes. # severe sepsis secondary to right upper trapezius abscess -leukocytosis and lactic acidosis improved. Blood culture and wound culture is growing Gram-positives rods and propionibactereium Continue vancomycin , adjust level as needed ID recommendation:Continue Vancomycin for now. Can add Ceftriaxone if slow response 2 g daily Echo evaluate endocarditis On discharge po Doxycycline or Ceftin for two weeks when improved Stop Zosyn Recheck blood culture--rechecked on 05/26 Surgery follow back area. #Abscess right upper trapezius with sepsis -I and D done by gen surgery #new onset type 2 diabetes-fs uncontrolled but improving -A1c- 13.9% -Humalog on SS -Diabetic diet -POC glucose continue lantus, metformin, and glipizide -Nutrition consult for new onset type 2 diabetes. -needs insulin teaching # acute dehydration likely secondary to hyperglycemia--resolved #pseudohyponatremia due to hyperglycemia -resolved # history DVT provoked s/p right ankle surgery-many years ago -no longer on anticoagulation as per pcp. right foot pressure ulcer s/p debridement-sugery followin DVT prophylaxis-Lovenox Full code Need for inpatient: :sepsis requiring IV antibiotics , wound culture-gram positive rods-identification/senstivities pending, repeat blood cultures ,also need tight dm ( new) control anticipate discharge in 1 to 2 days Quality Stroke Does the patient have a stroke diagnosis?: No VTE Prior VTE?: No VTE Risk Level:: Medical - moderate - high VTE Device Contraindication: Treatment Not Indicated VTE Drug Contraindication: N/A - Med Ordered
[2022-05-28 11:57] LABS: Glucose, Whole Blood 185 mg/dL (60-115)
[2022-05-28] MEDS: Insulin Lispro 100 UNIT/ML 3 ML VIAL SUBCUT (11:59)
[2022-05-28 16:36] LABS: Glucose, Whole Blood 116 mg/dL (60-115)
[2022-05-28] MEDS: Furosemide 40 MG/4 ML VIAL IVPUSH (20:04)
[2022-05-28] MEDS: cefTRIAXone sodium 1 GM in 0.9 % Sodium Chloride 50 ML IV (20:17)
[2022-05-28] MEDS: Enoxaparin Sodium 100 MG/ML SYRINGE 90 MG SUBCUT (20:29)
[2022-05-28] MEDS: dilTIAZem HCL 50 MG/10 ML VIAL 20 MG IVPUSH (20:30)
[2022-05-28] MEDS: Labetalol HCL 100 MG/20 ML VIAL 20 MG IVPUSH (20:37)
[2022-05-28 20:43] LABS: Glucose, Whole Blood 159 mg/dL (60-115)
[2022-05-28 20:55] LABS: B Type Natriuretic Peptide 486 pg/mL (<100); Troponin-I High Sensitivity 40.4 ng/L (<3.5-35.0)
[2022-05-28 21:26] LABS: ABG Base Excess -9.4 mmol/L; ABG HCO3 16 mmol/L (22-26); ABG pCO2 34 mmHg (32-45); ABG pH 7.28 (7.35-7.45); ABG pO2 262 mmHg (83-108)
--- NOTE | 2022-05-28 21:34 | P.EN_ITS ---
Event Note Date of Service: 05/28/22 Event Note: Rapid response was called by bedside nurse for sudden onset of dyspnea. Upon my arrival, patient was tachypneic and on a non-rebreather. He was tachycardic in the 150s and blood pressure was with systolic greater than 200. Administered 40 mg IV Lasix and 90 mg subQ Lovenox for his sudden onset of dyspnea and hypoxemia, differential being flash pulmonary edema due to hypertensive emergency versus pulmonary embolus. Patient continued to be tachypneic and tach ycardic and systolics remained greater than 200. Administered IV labetalol and IV diltiazem with improvement in blood pressure and heart rate. Patient's oxygen requirement mildly improved and he was taken off non-rebreather and put on 10 L supplemental oxygen, although he continued to remain tachypneic. He was being closely monitored with titration of oxygen and monitoring of his vital signs while I was in the room when he suddenly became unresponsive. Could not obtain blood pressure and could not palpate a pulse. Jeffy conti was called and patient was resuscitated for 13 minutes as per ACS protocol. He was intubated during the code. ROSC achieved and patient to be transferred to the intensive care unit for further evaluation and management. Called Chanelle, and updated regarding 's condition. Answered questions.
[2022-05-28 21:50] LABS: Alanine Aminotransferase 18 U/L (0-40); Albumin Level 3.2 g/dL (3.5-5.0); Alkaline Phosphatase 112 U/L (39-117); Anion Gap 21 (12-20); Aspartate Amino Transferase 21 U/L (5-37); Bilirubin Total 0.2 mg/dL (0.0-1.0); Blood Urea Nitrogen 10 mg/dL (9-16); Calcium 8.5 mg/dL (8.4-10.2); Carbon Dioxide 22 mmol/L (22-29); Chloride 99 mmol/L (96-108); Creatinine Clr Calc Pharmacy 126.2; Estimated Glomerular Filt Rate > 60; Glucose Random 250 mg/dL (60-115); Potassium 4.8 mmol/L (3.3-5.1); Sodium 137 mmol/L (135-145); Total Protein 6.4 g/dL (6.5-8.0)
--- NOTE | 2022-05-28 21:55 | P.CONCC_ITS ---
History of Present Illness Data of Consult Service Date: 05/29/22 Requesting physician: Adrianna Justice Primary Care Provider: None Physician HPI Reason for consult: Cardiac arrest HPI: ?Patient's transfer to the ICU status post cardiopulmonary arrest.? Patient received 13 minutes of CPR before obtaining ROSC, he was intubated on the floor by me and transfer to the ICU. 52-year-old has a history of diabetes, right ankle wound, right ankle surgery, central obesity, was admitted on 04/21/2022 to the hospital with complaints of right upper back cyst which was later diagnosis an abscess which per CT showed a superficial fluid collection of the right upper back in the midline area with internal fluid and some gas around the trapezius muscle all consistent with an abscess.? General surgery had been consulted and the patient underwent a incision and drainage of approximately 250 cc of purulent material, cultures obtained at the time later revealed Propionibacterium acnes, while blood culture shows revealed Gram-positive rods; patient had been started on Zosyn and va ncomycin, given 3 L of fluid that time as well as insulin for his elevated blood sugar and admitted to the hospital. ?He does have underlying history of right lower extremity DVT after a right ankle surgery, at the time he had been feeling generally unwell, the initial workup in the ER revealed white count 23.3 with a left shift, had an elevated glucose of 682, sodium 126, anion gap of 24 but no a cidosis, intact renal function. ?\The patient however was never hypotensive.? He was given several L of fluid. ?The last vancomycin level this morning was 17. ? Tonight a rapid response was called subsequently a code blue.? Upon arrival the patient had no pulse and was not breathing.? ACLS protocol was followed for cardiopulmonary arrest, patient received a couple doses of epinephrine, atropine, calcium chloride, sodium bicarb and magnesium, subsequently after 13 minutes of CPR, ROSC was obtained, patient was successfully intubated and the patient was transferred to the ICU for further care. ? ROS:? Unable to obtain ? Past Medical History:? As above ? Past Surgical History:? As above Right ankle wound ? Family history: ?Mother and father were diabetic. ? Social History:? Lives at home with his . ?Per records he is a former smoker who quit 2 weeks ago, usually smokes half pack a day for the past 30 years given him a 15 pack-year history.? Disabled.? Does not drink alcohol.? No history of drug abuse. ? CODE STATUS: FULL CODE ? Allergies: NKDA ? Home Medications: See Med Rec ? Septic exam done at 1145 pm. VS: ?Post arrest blood pressure 90/60, heart rate 110, on a vent. Vent settings AC, 16, 450, 6, 50% FiO2 satting 96% General:? Sedated and intubated. Skin:? Right heel a pop 5 x 4 cm overall shape with darkening or scarring and central yellow in tissue unstageable at this point no surrounding erythema, no tracking. ?Right upper back, quarter size abscess like formation with central pustule draining yellow material with surrounding erythema and warm to touch. HEENT:? Head is normocephalic, atraumatic; Buccal mucosa is moist, Neck is supple without lymphadenopathy. Cardiac:? Clear S1-S2, no murmurs rubs or gallops. Pulmonary:? Diffuse crackles bilaterally with minor rhonchi at the right upper lobe. Abdomen:? Protuberant, diminished bowel sounds throughout the abdomen.? Large, somewhat tense. Musculoskeletal:? Passive range of motion of all 4 extremities at the major joints showed no cogwheeling.? There is no leg edema no asymmetry. Neurologic:? As above, unable to further evaluate at this point. Vascular:? 2+ pulses upper and lower extremities distally. Less than 2nd capillary refill finger and toes bilaterally ? SIGNIFICANT LABORATORY DATA:? White blood cells 34.9, hemoglobin 13, hematocrit 41.1, platelets 458.? Sodium 137, potassium 4.8, chloride 99, carbon dioxide 22, anion gap 21, BUN 10, creatinine 0.74.? Current glucose of 50.? Troponin 40.4, BNP 40 86, albumin 3.2. ?Unable to obtain lactic acid this point, it will be obtained after central line is placed. ? REVIEW OF IMAGES: ? Chest x-ray IMPRESSION: Newly placed left IJ catheter with tip in the proximal SVC against the lateral wall. Tip of orogastric tube below the diaphragm but not visualized. Other findings as described above.? On previous x-ray there is a mention of the tip of the ET tube 5 cm above the karen, this was advanced 2 cm and I believe it is at 3 cm above the karen at this point although the radiologist does not identify this as such. ? ? EKG REVIEW: Sinus tachycardia 156 beats per minute, age undetermined anterior septal changes.? QTC 326.? Lots of artifact, poor quality study. ? ECHO Done today show a mildly dilated left ventricle with severe left ventricular systolic dysfunction and ejection fraction of 25-30% with regional wall motion abnormality consistent with ischemic cardiomyopathy.? No significant abnormality of the valvular Doppler.? Mildly dilated ascending aorta at 3.8 cm.? Trivial pericardial effusion.? The anterior wall, inferior lateral wall, apical inferior, basal inferior, mid inferior and mid inferior septal and basal anteroseptal segments are hypokinetic.? The apex, apical anterior, basal inferior, mid anterior, apical lateral, apical septum, basal inferior septal, and mid anteroseptal segments are akinetic.? Trivial loculated pericardial effusion over the left ventricle.? Inferior vena cava normal in size and collapses greater than 50% with inspiration. ? ASSESSMENT : 1. Status post cardiopulmonary arrest 2. Severe sepsis in the setting of upper back abscess 3. Metabolic acidosis due to the above 4. Diastolic CHF with acute exacerbation and worsening, underlying ejection fraction 30% 5. Hypoalbuminemia 6. Poorly-controlled diabetes mellitus type 2 with hemoglobin A1c of 13.9. 7. Troponin abnormality unlikely to be ACS but will r /o 8. Concern for developing aspiration pneumonitis ? PLAN OF CARE: Patient will be transferred to ICU, no cooling protocol will be followed this point.? He appears to be awake enough and is tracking with his eyes, will use propofol and fentanyl for sedation.? He certainly needs to be diuresed if necessary, will support his blood pressure with Levophed.? It is clear to me that the patient aspirated therefore I will discontinue Rocephin and place him on Zosyn.? Repeat laboratories in the morning, follow troponin and get a repeat EKG.? IV albumin ordered.? Will continue with insulin sliding scale. I will place a central line, orogastric tube. I do not think the pulmonary embolism is playing a role in the patient's cardiac arrest, the echo did not show any evidence of right heart strain. ?Even though I suspect the patient continues to be septic, I will not give him fluids for this will lead to further fluid overload and worsening CHF.? If anything the patient needs to be diuresed. Will repeat a troponin in the morning as well as an EKG, this point I do not think he needs to be anticoagulated, however this can be consulted with Cardiology in the morning. He did receive a full therapeutic dose of Lovenox last night which will be more than adequate for the next 12 hours. Although given the findings on echo with multiple areas of akinesis and hypokinesis this may need to be further evaluated. For now will give him a single dose of aspirin. I had a lengthy discussion with the patient's over the phone, I informed her of all the above events and obtained the consent for the patient's central line.? She will be in to visit in the morning. Repeat EKG to my view shows sinus tachycardia with PVCs. No discernible ST elevations or depressions noted. QTC 398. ? GI PROPHYLAXIS: ?Protonix IV DVT PROPHYLAXIS:? Lovenox subQ ? Critical care time used for critical evaluation of this patient, diagnosis, treatment and coordination of care, review her records and documentation TOTAL CRITICAL CARE TIME? 120? MIN . discussion and coordination with consultants, completely separate from any procedures performed. Patient's care was discussed in detail with Dr. Alejandra.? He is aware of all the above as well as the plan of care for this patient. [facility] Past Medical History Medical History Diabetes DVT (deep venous thrombosis) Severe sepsis Family History Family History Mother Diabetes Father Diabetes Social History Social History Household Members: Spouse and Family Household Members Other:: 6 Housing: House Do you presently have visiting nurse or other home services: No Alcohol intake: former Patient Tobacco Use Status: Former Tobacco user Quit Date: 2 wks ago Tobacco use type: Cigarette Cigarettes Per Day: 10 Years Smoked: 30 e-Cigarette/Vaping Use: Never Used Second Hand Smoke Exposure: Yes service: No Current occupational status: disabled Meds Allergies Allergy/AdvReac Type Severity Reaction Status Date / Time No Known Allergies Allergy Verified 08/13/20 15:28 Active Medications: Current Medications Acetaminophen (Acetaminophen 325 Mg Tablet) 650 mg PO Q6H PRN PRN Reason: Pain, Mild (Pain Scale 1-3) Last Admin: 05/26/22 16:35 Dose: 650 mg Albuterol/Ipratropium (Albuterol/Iprat 2.5/0.5mg 3 Ml Ampul.Neb) 3 ml INHALE RQ4H PRN PRN Reason: wheezing Dextrose (Dextrose 50 % 25 Gm/50 Ml Syringe) 25 gm IVPUSH Q15M PRN; Protocol PRN Reason: per Hypoglycemia Standing Ord. Diphenhydramine HCl (Diphenhydramine Hcl 25 Mg Capsule) 25 mg PO Q6H PRN PRN Reason: itching Last Admin: 05/28/22 16:18 Dose: 25 mg Docusate Sodium (Docusate Sodium 100 Mg Capsule) 100 mg PO DAILY PRN PRN Reason: Constipation Docusate Sodium (Docusate Sodium 100 Mg Capsule) 100 mg PO BID PRN PRN Reason: Constipation Enoxaparin Sodium (Enoxaparin Sodium 40 Mg/0.4 Ml Syringe) 40 mg SUBCUT Q24H [facility] Last Admin: 05/28/22 21:18 Dose: Not Given Glipizide (Glipizide 10 Mg Tablet) 10 mg PO BIDWM [facility] Last Admin: 05/28/22 18:36 Dose: 10 mg Glucose (Glucose Gel 15 Gm Gel..Gram.) 15 gm PO Q15M PRN; Protocol PRN Reason: per Hypoglycemia Standing Ord. Hydromorphone HCl (Hydromorphone Hcl 0.5 Mg/0.5 Ml Syringe) 0.25 mg IVPUSH Q4H PRN; Protocol PRN Reason: Pain, Severe (Pain Scale 7-10) Last Admin: 05/28/22 16:13 Dose: 0.25 mg Ceftriaxone Sodium 1 gm/ (Sodium Chloride) 50 mls @ 100 mls/hr IV Q24H [facility] Last Admin: 05/28/22 20:17 Dose: 100 mls/hr Vancomycin HCl 1,250 mg/ (Sodium Chloride) 250 mls @ 166.667 mls/hr IV Q8H [facility] Last Infusion: 05/28/22 20:47 Dose: Infused Insulin Glargine (Insulin Glargine,Hum.Rec.Anlog 100 Unit/Ml 10 Ml Vial) 20 unit SUBCUT DAILY [facility] Last Admin: 05/28/22 07:50 Dose: 20 unit Insulin Human Lispro (Insulin Lispro 100 Unit/Ml 3 Ml Vial) 0 unit SUBCUT QIDACHS [facility]; Protocol Last Admin: 05/28/22 20:46 Dose: Not Given Metformin HCl (Metformin Hcl 500 Mg Tablet) 750 mg PO BIDWM [facility] Last Admin: 05/28/22 18:36 Dose: 750 mg Ondansetron HCl (Ondansetron Hcl 4 Mg/2 Ml Vial) 4 mg IVPUSH Q8H PRN PRN Reason: Nausea and Vomiting Pantoprazole Sodium (Pantoprazole Sodium 40 Mg/10 Ml Vial) 40 mg IVPUSH DAILY@0630 [facility] Pharmacy Consult (Consult Rx Perform Med Rec) 1 each MISCELLANE ONCE PRN PRN Reason: Consult order Pharmacy Consult (Consult Rx Vancomycin Dosing) 1 each MISCELLANE DAILY PRN PRN Reason: Consult order Polyethylene Glycol (Polyethylene Glycol 3350 17 Gm Powd.Pack) 17 gm PO DAILY [facility] Last Admin: 05/28/22 07:50 Dose: 17 gm Sodium Bicarbonate (Sodium Bicarbonate 8.4% 50 Meq/50 Ml Vial) 150 meq IVPUSH ONCE ONE Stop: 05/28/22 22:01 Sodium Chloride (0.9 % Sodium Chloride Flush 3 Ml Syringe) 3 ml IVFLUSH QSHIFT [facility] Last Admin: 05/28/22 16:19 Dose: 3 ml Home Medications Medication Instructions Recorded Confirmed Last Taken Type No Known Home Meds 05/20/22 05/20/22 Unknown History Physical Exam Vital Signs: Vital Signs: Last Vital Signs Temp 97.7 F 05/28/22 19:14 Pulse 119 H 05/28/22 19:14 Resp 20 05/28/22 19:14 BP 144/90 H 05/28/22 19:14 Pulse Ox 89 L 05/28/22 19:14 O2 Del Method 05/28/22 19:14 FiO2 50 05/28/22 21:26 BMI result Body Mass Index 30.4 Results Labs CBC & Chem 7: 05/28/22 22:00 05/28/22 20:28 Labs: BMP 05/28/22 05/28/22 07:53 20:28 Sodium 137 Potassium 4.8 Chloride 99 Carbon Dioxide 22 BUN 10 Creatinine 0.57 0.74 Calcium 8.5 Liver Function 05/28/22 Range/Units 20:28 Total Bilirubin 0.2 (0.0-1.0) mg/dL AST 21 (5-37) U/L ALT 18 (0-40) U/L Alkaline Phosphatase 112 (39-117) U/L Albumin 3.2 L (3.5-5.0) g/dL Microbiology Microbiology Results: Microbiology 05/26/22 12:08 Blood - Venous Blood Culture - Preliminary No growth after 48 hours. 05/26/22 12:08 Blood - Venous Blood Culture - Preliminary No growth after 48 hours. 05/20/22 12:26 Blood - Venous Blood Culture - Preliminary Gram positive aparna 05/20/22 12:58 Blood - Venous Blood Culture - Preliminary Gram positive aparna 05/20/22 17:21 Back Gram Stain - Final 05/20/22 17:21 Back Routine Culture - Final Propionibacterium acnes
--- NOTE | 2022-05-28 21:55 | P.PNCC_ITS ---
Critical Care Event Note Summary Date of Service: 05/28/22 Code activated: Yes Narrative: This case had a high probability of a clinically significant, sudden, or life threatening deterioration of this patient's condition which required my full and direct attention, intervention and personal management. Critical Care Time (minutes): 30 Comment: Jeffy conti was called to room 368. I assisted to it, upon arrival, the primary doctor taking care of this patient was at bedside. I was informed that the patient had been admitted for sepsis in the setting of an abscess of his back, he is a diabetic and also has of foot wound. Apparently on IV fluids, he is known to have a history of CHF with ejection fraction of 30%. Prior to the jeffy conti the patient had being agitated, anxious, not breathing well and his heart rate had been in the 120s to 140s, the concern was that the patient had fluid overload, Lasix was given as well as Cardizem unknown amount. Again upon arrival, check for pulse, non present, the patient was not breathing immediately requested to start CPR. I proceeded to run the code per ACLS protocol given several rounds of epinephrine, atropine, calcium chloride, bicarb and magnesium. Blood sugar was above 140. Several checks for a pulse was made without any luck. In the meantime, I proceeded to intubate the patient, please see a separate procedure note for det ails. Patient received approximately 13 minutes of CPR with the Luke us until ROSC was noted, I was able to detect a good rhythm with a strong pulse. The rhythm on the monitor shows sinus tachycardia 110 beats per minute. Given the lack of IV access, I also placed done I 0 line on the right tibia, please see procedure note. Once all the above happened, the patient's transfer to the ICU for further care. Total time running the code along without any procedures 30 minutes
[2022-05-28] MEDS: Rocuronium Bromide 50 MG/5 ML VIAL 30 MG IVPUSH (22:00)
[2022-05-28 22:10] LABS: Basophils Absolute Auto 0.2 X10*3/uL (0.0-0.2); Basophils Percent Auto 0.5 % (0-2); Eosinophils Absolute Auto 0.1 X10*3/uL (0.0-0.4); Eosinophils Percent Auto 0.3 % (0-4); Hematocrit 41.1 % (42.0-52.0); Imm Gran Pct Auto 4.6 % (0.0-0.4); Lymphocytes Absolute Auto 2.2 X10*3/uL (1.2-4.9); Lymphocytes Percent Auto 6.3 % (20-40); MANUAL DIFF FLAG SCAN; Mean Corpuscular HGB Conc 31.6 g/dl (31.0-36.0); Mean Corpuscular Hemoglobin 26.7 pg (27.0-33.0); Mean Corpuscular Volume 84.6 fL (80.0-98.0); Mean Platelet Volume 8.9 fL (9.4-12.4); Monocytes Absolute Auto 1.7 X10*3/uL (0.1-1.2); Monocytes Percent Auto 4.8 % (2-11); Neutrophils Absolute Auto 29.2 x10*3/uL (2.0-8.3); Neutrophils Percent Auto 83.5 % (45-73); Platelet Count 458 X10*3/uL (160-400); Red Blood Count 4.86 X10*6/uL (4.60-5.80); Red Cell Distribution Width 13.5 % (11.0-16.0); SCAN SMEAR FLAG 1
--- NOTE | 2022-05-28 22:10 | W.PM.CCHP ---
Procedures Date of Service Date of Service: 05/28/22 Intubation Intubation Comments: Emergent during code no consent Consent for Procedure: Emergent-no informed consent obtained Time out performed: No Sedative: none Paralytic: rocuronium Mg given: 30 Laryngoscope: fiber optic video scope ET tube size: 7.5 ET tube uncuffed: Yes Tube secured depth (cm): 23 Tube secured location: lips Tube placement confirmation: visualized tube passing through cords Patient tolerated procedure: well Intubation complications: none
[2022-05-28 22:12] LABS: White Blood Count 34.9 X10*3/uL (4.8-10.8)
--- NOTE | 2022-05-28 22:29 | W.PM.CCHP ---
Procedures Date of Service Date of Service: 05/28/22 IO Right Tibia: Time out performed: No Anesthetic used: none IO instrument used to penetrate the cortex: battery powered IO drill Patient tolerated procedure: well Complications: none Additional comments: , during CODE no IV access, After identifying the anatomy, cleaning the area with copious amounts of alcohol, just below the tibial plateau and using a power drill a yellow large 15g IO needle was inserted, aspirated well no complications
[2022-05-28] MEDS: ondansetron HCL 4 MG/2 ML VIAL IVPUSH (22:30)
[2022-05-28 22:32] LABS: SLIDE REVIEW VERIFIED
[2022-05-28 22:43] LABS: ABG Refer to POC result
--- NOTE | 2022-05-28 23:20 | PC.NURSE ---
Addendum entered by Britany Miller RN 05/28/22 23:35: Around 1939, Resiratory therapist gave a neb treatment, pt still tachypneic, sweaty and restless after, THN=223. At 2003 Lasix 40 mg IV given and Lovenox 90 mg SC, EKG and CXR done, labs drawn. At 2029 pt sustaining to be tachycardic [id number] and high BP at 190s systolic, and tachypneic Diltiazem 20 mg slow IVpush given , HR went to 140s. At 2034 BP 206/123, Bk=172, Labetalol 20 mg IV given , at 2037 BP= 162/99 ER=109, breathing status still unchanged. At 2043 pt is pale, sweaty and unable to get BP, HR 90-101, still nodding when spoken to, still with tachypneic but swallow. At 2049 pt became unresponsive, with agonal breathe, code was called, then eventually lost pulse, CPR started, pt ws intubated and regained ROSC, pt shifted to ICU at 2113. Original Note: Routine Vitals was done by MUNICIPAL ENGINEER at 191 when noted with O2 sats low 80s til 89% RA and pt c/o being congested, went to see pt and O2 was placed at 2L/min via NC, pt was alert and oriented and c/o sudden SOB, LS has scattered rhonchi and coarse crackles, pt claimed no relief with O2 on,O2 sats at 89%, titrated O2 up to 5L/min via NC, and O2 went upto 92%, Dr. Justice was asked to come see pt at 1926, Respiratory therapist was called for assist at 1924, pt seen still struggling with increased WOB, Rapid response was called at 1929
--- NOTE | 2022-05-28 23:51 | P.PCNCC_ITS ---
Procedures Date of Service Date of Service: 05/28/22 Central Line Placement A quick time-out was made for clarification and proper patient identification, patient was positioned, landmarks were identified, US used to locate a large compressible IJ. The left neck was widely prepped and draped in a full sterile fashion. Ultrasound was used to locate again the left IJ, the vein was cannulated on the 1st pass with an 18 gauge thin needle, dark nonpulsatile blood return was obtained. The wire was threaded, a small incision was made at its base and dilator inserted. A triple-lumen central venous catheter was advanced into the vein up to the hub without problems, wired was removed. Ports had good blood return and flushed x3. The catheter was secured with 3 sutures at 3 sites, a Biopatch and dry sterile dressing were applied.Post procedure chest x- ray showed the line to be in good position without pneumothorax. No bleeding or complications noted.: Consent for Procedure: Emergent-no informed consent obtained Time out performed: Yes Sterile Technique Used: Yes Patient placed on monitor/pulse ox: Yes prep: mask, gown and gloves Central line prep: Chlorhexidine scrub Ultrasound used for placement: Yes Central line lumen inserted: triple (16 cm) Post procedure: sutured in place, good blood return, all ports aspirated, flushed, capped and sterile dressing applied Post procedure x-ray: tip of catheter in good position and no pneumothorax seen Patient tolerated procedure: well Complications: none
--- NOTE | 2022-05-28 23:55 | W.PM.CCHP ---
Procedures Date of Service Date of Service: 05/28/22 Procedure Note Procedure Note: Nursing personnel attempted to place an oral gastric tube without success. 30 mg of rocuronium administer for paralytic a process for patient continued to have a gag reflex. I then performed the procedure myself after dislodging the endotracheal tube slightly tall worse the left, inserted a 18 Bulgarian orogastric tube, confirmed its placement by both pusshing air into the stomach and heard bubbles upon auscultation as well as by aspirating gastric contents, placed to suction given the significant amount of it. Follow-up x-ray to follow. No complications.
[2022-05-29] VITALS (28 sets, daily range): BP systolic 84–164; BP diastolic 49–92; PULSE 83–117; RESP 14–26; TEMP 32.9–36.5; O2SAT 91–98; BMI 30.4
--- NOTE | 2022-05-29 | ECG_ITS ---
Test Reason : myocardial infarction Blood Pressure : / mmHG Vent. Rate : 104 BPM Atrial Rate : 104 BPM P-R Int : 158 ms QRS Dur : 104 ms QT Int : 410 ms P-R-T Axes : 048 -06 084 degrees QTc Int : 539 ms Sinus tachycardia Possible Left atrial enlargement Anteroseptal infarct (cited on or before 28-MAY-2022) Prolonged QT ST elevation in Anterior leads Nonspecific ST abnormality Lateral leads Abnormal ECG Possible acute mi When compared with ECG of 29-MAY-2022 04:22, Premature ventricular complexes are no longer Present ST more elevated in Anterior leads Referred By: Edward Alejandra Electronically Signed By:MARLI FREEMAN MD
--- NOTE | 2022-05-29 | ECG_ITS ---
Test Reason : post cardiac arrest Blood Pressure : / mmHG Vent. Rate : 101 BPM Atrial Rate : 101 BPM P-R Int : 162 ms QRS Dur : 102 ms QT Int : 398 ms P-R-T Axes : 045 020 095 degrees QTc Int : 516 ms Sinus tachycardia with occasional Premature ventricular complexes Possible Anteroseptal infarct (cited on or before 28-MAY-2022) Abnormal ECG When compared with ECG of 28-MAY-2022 20:07, Previous ECG has undetermined rhythm, needs review Serial changes of evolving Anteroseptal infarct Present no prior ekg of time listed isavailable for comparison Referred By: Dieter Pittman Electronically Signed By:MARLI FREEMAN MD
[2022-05-29] MEDS: 0.9 % Sodium Chloride Flush 3 ML SYRINGE IVFLUSH ×4 (01:10→22:39)
[2022-05-29] MEDS: Piperacillin Sodium/Tazobactam 4.5 GM in 0.9 % Sodium Chloride 100 ML IV ×4 (01:17→18:19)
[2022-05-29] MEDS: Albumin Human 25 % 100 ML IV ×3 (01:18→03:28)
[2022-05-29 01:38] LABS: Lactic Acid 2.9 mmol/L (0.5-2.0)
[2022-05-29 01:52] LABS: Troponin-I High Sensitivity 475.7 ng/L (<3.5-35.0)
[2022-05-29] MEDS: vancomycin HCL 1,250 MG in 0.9 % Sodium Chloride 250 ML 166.67 MG IV (02:28)
[2022-05-29 03:12] LABS: Reflex Lactate? Lactic Acid Added
[2022-05-29 03:51] LABS: ~Lactic Acid-LAB USE ONLY 2.4 mmol/L (0.5-2.0)
[2022-05-29] MEDS: propofoL 1,000 MG/100 ML VIAL 10.89 MG IVCONT ×2 (04:00→10:46)
[2022-05-29 04:53] LABS: VBG Base Excess 0.7 mmol/L; VBG HCO3 24 mmol/L (22-26); VBG pCO2 38 mmHg; VBG pH 7.42 (7.32-7.43); VBG pO2 52 mmHg
[2022-05-29] MEDS: Aspirin 325 MG TABLET PO (05:07)
[2022-05-29] MEDS: fentaNYL citrate/NS 1,000 MCG/100 ML PLAST..BAG 5 MCG IVCONT (06:00)
[2022-05-29 06:02] LABS: Reflex Lactate? 2 Y
[2022-05-29 06:06] LABS: Basophils Absolute Auto 0.1 X10*3/uL (0.0-0.2); Basophils Percent Auto 0.3 % (0-2); Hematocrit 37.7 % (42.0-52.0); Imm Gran Abs Auto 0.57 X10*3/uL (0.00-0.03); Imm Gran Pct Auto 2.4 % (0.0-0.4); Lymphocytes Absolute Auto 2.2 X10*3/uL (1.2-4.9); Lymphocytes Percent Auto 9.4 % (20-40); MANUAL DIFF FLAG NO; Mean Corpuscular HGB Conc 31.8 g/dl (31.0-36.0); Mean Corpuscular Hemoglobin 26.9 pg (27.0-33.0); Mean Corpuscular Volume 84.5 fL (80.0-98.0); Mean Platelet Volume 10.3 fL (9.4-12.4); Monocytes Absolute Auto 1.4 X10*3/uL (0.1-1.2); Monocytes Percent Auto 5.9 % (2-11); Neutrophils Absolute Auto 19.1 x10*3/uL (2.0-8.3); Platelet Count 366 X10*3/uL (160-400); Red Blood Count 4.46 X10*6/uL (4.60-5.80); Red Cell Distribution Width 13.5 % (11.0-16.0); White Blood Count 23.4 X10*3/uL (4.8-10.8)
[2022-05-29 06:08] LABS: Troponin-I High Sensitivity 1254.8 ng/L (<3.5-35.0)
[2022-05-29 06:28] LABS: Venous Blood Gas Refer to POC result
[2022-05-29] MEDS: Pantoprazole Sodium 40 MG/10 ML VIAL IVPUSH (06:30)
[2022-05-29 06:43] LABS: Alanine Aminotransferase 28 U/L (0-40); Albumin Level 3.6 g/dL (3.5-5.0); Alkaline Phosphatase 104 U/L (39-117); Anion Gap 21 (12-20); Aspartate Amino Transferase 37 U/L (5-37); Bilirubin Total 0.5 mg/dL (0.0-1.0); Blood Urea Nitrogen 13 mg/dL (9-16); C Reactive Protein 5.73 mg/dL (< or = 0.50); Calcium 8.9 mg/dL (8.4-10.2); Carbon Dioxide 25 mmol/L (22-29); Chloride 97 mmol/L (96-108); Creatinine Clr Calc Pharmacy 118.2; Estimated Glomerular Filt Rate > 60; Glucose Random 258 mg/dL (60-115); Phosphorus 5.4 mg/dL (2.7-4.5); Potassium 4.6 mmol/L (3.3-5.1); Sodium 138 mmol/L (135-145); Total Protein 5.9 g/dL (6.5-8.0)
[2022-05-29 07:19] LABS: Glucose, Whole Blood 195 mg/dL (60-115)
[2022-05-29] MEDS: Furosemide 40 MG/4 ML VIAL IVPUSH ×2 (08:19→13:43)
[2022-05-29 08:47] LABS: Prothrombin Time 11.9 SEC (10.0-13.1)
[2022-05-29 08:50] LABS: Partial Thromboplastin Time 35.4 SEC (26.0-36.4)
[2022-05-29 08:59] LABS: ~Lactic Acid-LAB USE ONLY 4.1 mmol/L (0.5-2.0)
[2022-05-29 09:03] LABS: Vancomycin Trough 22.4 mcg/mL (10.0-20.0)
[2022-05-29 09:09] LABS: Cancel Lactic Acid Canceled
--- NOTE | 2022-05-29 09:20 | HE.PHANOTE ---
RE: vanco Trough on 05/29/22 came back at 22.4; put in new order for 1500mg Q12H to start at 1800 with predicted AUC of 444mg/L. Next level to be drawn 05/30/22 @1600
[2022-05-29 11:27] LABS: Glucose, Whole Blood 149 mg/dL (60-115)
--- NOTE | 2022-05-29 12:08 | MHC.CLN ---
PT IS CURRENTLY INTUBATED AND SEDATED PT IS CURRENTLY NPO IF TF NEEDED; RECOMMEND PROMOTE AT MAX GOAL RATE 65ML/HR TO PROVIDE 1560KCALS (1847KCALS WITH SEDATION; 24KCALS/KG), 97.5G PROTEIN (1.25G/KG), 1309ML FREE WATER FROM FORMULA START AT 20ML/HR AND INCREASE BY 10ML Q 4 HRS UNTIL MAX GOAL IS ACHIEVED MONITOR TOLERANCE, RESIDUALS AND LYTES SEE FULL CLINICAL NUTRITION ASSESSMENT
[2022-05-29 14:09] LABS: Magnesium 1.7 mg/dL (1.6-2.6)
[2022-05-29 14:11] LABS: Lactic Acid 2.3 mmol/L (0.5-2.0)
--- NOTE | 2022-05-29 14:17 | PM.CCPN ---
Subjective Subjective Date of Service: 05/29/22 Interval History: Mr. Corrales was transferred to the ICU late last nit after a cardiac arrest on the medical godwin. The patient is a generally healthy 52 yo M with no PMHx other than a foot injury he sustained at work about 5 years ago that left him disabled.? He hasn?t worked since then.? He lives with his . The patient presented ambulatory to the ED on May 20 complaining of a large cyst on the right side of his upper back that had been getting progressively bigger over the past week.? On admission to the ED, the patient was mildly tachycardic, but vital signs were otherwise unremarkable.? Labs were notable for an elevated WBC, and a glucose level of 680, without DKA.? BUN and creatinine were normal.? Urine glucose was negative.? Hemoglobin A1c was 13.9. Chest CT showed a well marginated 10 x 14 cm fluid collection in the superficial soft tissues of the back to the right of the midline along the trapezius muscle, with internal fluid and gas.? The superficial collection did not extend to any of the bony structures, and there was no osseous erosion.? The lungs showed no acute disease. The patient was given fluids and antibiotics.? Dr. Retana saw him in the ED, and did an I&D. ?About 250 cc of pus was suctioned out.? The wound was packed and dressed, and the patient was admitted to Medicine.? The Gram stain was reported as showing 3+ polys plus a mixed hever of Gram-positive rods and Gram-positive cocci.? The patient was continued on vancomycin and Zosyn. On May 24, the wound cultures were reported out as growing 4+? Propionibacterium acnes. ?On May 25, both sets of BCs from the ED were reported back positive as growing GPR.? On 05/26, new BCs were drawn, so far negative. ?The patient was seen by Dr. Gilmore, who recommended continuing vancomycin and stopping the Zosyn.? On discharge, she recommended po doxycycline or Ceftin for 2 weeks. Echo done on 05/28 to r/o endocarditis showed:? Mildly dilated LV w severe LV systolic dysfunction, EF 25-30% with RWMAs, consistent with ischemic cardiomyopathy? No significant valvular Doppler findings.? The anterolateral wall, inferolateral wall, the apical inferior, basal anterior, mid inferior, mid inferoseptal, and basal anteroseptal segments are hypokinetic.? The apex, apical anterior, basal inferior, mid anterior, apical lateral, apical septum, basal inferoseptal, and mid anteroseptal segments were akinetic.? RV cavity size and systolic function were normal.? LA dilated.? AV OK.? Trace MR.? Unable to dopper TV.? The IVC was normal size w > 50% insp collapse. Last night, a DIRECTOR OF PRECLINICAL RESEARCH was called by the bedside nurse for sudden onset of dyspnea.? The DDx was flash pulmonary edema vs PE.? CXR showed pulmon edema.? The patient was also tachycardic and severely hypertensive. ?Labetalol and diltiazem were given.? The patient is oxygenation improved, although he remained tachypneic.? All the physicians were still in the room, the patient suddenly became unresponsive.? No blood pressure a pulse.? Jeffy conti was called.? Patient underwent CPR and ACLS, and was intubated.? ROSC was obtained after 13 minutes of CPR.? The patient was then transferred to the ICU. In the ICU, the patient was waking up and appropriately interactive.? A CVL was placed. ?The patient was put back on Zosyn.? Lactate and trop levels were elevated.? EKG showed old ASWMI, but no acute ischemic changes.? He was given 1mg/kg Lovenox. This morning, on propofol 20ug and fent 50ug, the patient is awake, following, and appropriately interactive.? Breathing easy on AC mode ventilation.? We switched him over to PSV 5cm, still breathing easy w good Sat.? HR 90, SR.? BP 109/64 on Levophed 0.03ug.? Afebrile.? CVBG 7.42/38/0.? No JVD at 30?.? Chest clear to auscultation.? Heart rate and rhythm regular normal-sounding S1-S2, with no murmur or gallops.? Abdomen is benign.? He has 1+ pretibial/ankle edema. Extubated easily this morning.? Sat 96% on 2L NC. I&O?s:? Positive 13L as of this morning. LABORATORY DATA: ?below.? Notably,? WBC down to 23, from 34 last night.? BUN creatinine bumped slightly to 13/0.7.? Phosphorus up to 5.4.? Troponin up to 1254 (from 475 early this morning).? BNP last night was 486.? Repeat EKG this morning is unchanged from last night. IMPRESSION: 1. Acute respiratory distress last night.? Unequivocally 2? to pulmonary edema.? The CXR is obvious. 2. Cardiac arrest.? Given how quickly the patient had return of consciousness, and how oriented he is this morning, I?m not 100% convinced that he had full cessation of spont circulation last night.? Either way though, the cause of whatever happened was respiratory, not cardiac. 3. Acute respiratory failure.? Resolved. 4. Underlying CAD w ischemic CMOP.? He?s had a previous ASWMI, as shown by the EKG and the echo yesterday.? Asymptomatic 2? to his DM.? Discussed at length with Dr. Herron. ?Needs an ischemic workup. 5. Troponin bump overnight.? Type II.? Put him on bid Lovenox x 48 hrs, plus ASA, statin, and metoprolol. ?Add valsartan later. 6. Underlying poorly controlled DM.? On Lispro and Lantus. 7. ID:? Continue vancomycin for his back abscess.? Leukocytosis overnight is an acute phase reactant.? Not currently septic.? Nothing to do. Time (including full chart rev):? 75+ Critical Care Time (minutes): 75 Physical Exam Vital Signs: Vital Signs: Last Vital Signs Temp 96.9 F 05/29/22 08:00 Pulse 104 H 05/29/22 13:00 Resp 19 05/29/22 13:00 BP 115/71 05/29/22 13:00 Pulse Ox 94 05/29/22 13:00 O2 Del Method 05/29/22 13:00 O2 Flow Rate 2 05/29/22 13:00 FiO2 25 05/29/22 11:11 BMI result Body Mass Index 30.4 Objective Data Labs CBC & Chem 7: 05/29/22 06:00 05/29/22 04:45 Labs: Laboratory Results - last 24 hr 05/28/22 05/28/22 05/28/22 16:26 19:31 20:28 WBC RBC Hgb Hct MCV MCH MCHC RDW Plt Count MPV Immature Gran % (Auto) Neut % (Auto) Lymph % (Auto) Edmunds % (Auto) Eos % (Auto) Baso % (Auto) Lymph # (Auto) Edmunds # (Auto) Eos # (Auto) Baso # (Auto) Abs Immat Gran (auto) Absolute Neuts (auto) Absolute Nucleated RBC Nucleated RBC % (auto) Smear Tech's Comments PT INR APTT O2 Saturation ABG pH at Pt Temp ABG pCO2 at Pt Temp ABG pO2 at Pt Temp ABG HCO3 ABG Base Excess (Actual) VBG pH VBG pCO2 VBG pO2 VBG HCO3 VBG O2 Saturation VBG Base Excess Sodium Potassium Chloride Carbon Dioxide Anion Gap BUN Creatinine Estim Creat Clear Calc Estimated GFR POC Glucose 116 H 159 H Random Glucose Lactic Acid Lactic Acid F/U @ 2Hr Lactic Acid F/U @ 4Hr Calcium Phosphorus Magnesium Total Bilirubin AST ALT Alkaline Phosphatase Troponin I High Sens 40.4 H C-Reactive Protein B-Natriuretic Peptide 486 H Total Protein Albumin Vancomycin Trough 05/28/22 05/28/22 05/28/22 20:28 21:17 22:00 WBC 34.9 H* RBC 4.86 Hgb 13.0 L Hct 41.1 L MCV 84.6 MCH 26.7 L MCHC 31.6 RDW 13.5 Plt Count 458 H MPV 8.9 L Immature Gran % (Auto) 4.6 H Neut % (Auto) 83.5 H Lymph % (Auto) 6.3 L Edmunds % (Auto) 4.8 Eos % (Auto) 0.3 Baso % (Auto) 0.5 Lymph # (Auto) 2.2 Edmunds # (Auto) 1.7 H Eos # (Auto) 0.1 Baso # (Auto) 0.2 Abs Immat Gran (auto) 1.60 H Absolute Neuts (auto) 29.2 H Absolute Nucleated RBC 0.000 Nucleated RBC % (auto) 0.0 Smear Tech's Comments VERIFIED PT INR APTT O2 Saturation 100.0 ABG pH at Pt Temp 7.28 L ABG pCO2 at Pt Temp 34 ABG pO2 at Pt Temp 262 H ABG HCO3 16 L ABG Base Excess (Actual) -9.4 VBG pH VBG pCO2 VBG pO2 VBG HCO3 VBG O2 Saturation VBG Base Excess Sodium 137 Potassium 4.8 Chloride 99 Carbon Dioxide 22 Anion Gap 21 H BUN 10 Creatinine 0.74 Estim Creat Clear Calc 126.2 Estimated GFR > 60 POC Glucose Random Glucose 250 H D Lactic Acid Lactic Acid F/U @ 2Hr Lactic Acid F/U @ 4Hr Calcium 8.5 Phosphorus Magnesium Total Bilirubin 0.2 AST 21 ALT 18 Alkaline Phosphatase 112 Troponin I High Sens C-Reactive Protein B-Natriuretic Peptide Total Protein 6.4 L Albumin 3.2 L Vancomycin Trough 05/29/22 05/29/22 05/29/22 01:09 01:09 03:25 WBC RBC Hgb Hct MCV MCH MCHC RDW Plt Count MPV Immature Gran % (Auto) Neut % (Auto) Lymph % (Auto) Edmunds % (Auto) Eos % (Auto) Baso % (Auto) Lymph # (Auto) Edmunds # (Auto) Eos # (Auto) Baso # (Auto) Abs Immat Gran (auto) Absolute Neuts (auto) Absolute Nucleated RBC Nucleated RBC % (auto) Smear Tech's Comments PT INR APTT O2 Saturation ABG pH at Pt Temp ABG pCO2 at Pt Temp ABG pO2 at Pt Temp ABG HCO3 ABG Base Excess (Actual) VBG pH VBG pCO2 VBG pO2 VBG HCO3 VBG O2 Saturation VBG Base Excess Sodium Potassium Chloride Carbon Dioxide Anion Gap BUN Creatinine Estim Creat Clear Calc Estimated GFR POC Glucose Random Glucose Lactic Acid 2.9 H* Lactic Acid F/U @ 2Hr 2.4 H* Lactic Acid F/U @ 4Hr Calcium Phosphorus Magnesium Total Bilirubin AST ALT Alkaline Phosphatase Troponin I High Sens 475.7 H* D C-Reactive Protein B-Natriuretic Peptide Total Protein Albumin Vancomycin Trough 05/29/22 05/29/22 05/29/22 04:45 04:45 04:47 WBC RBC Hgb Hct MCV MCH MCHC RDW Plt Count MPV Immature Gran % (Auto) Neut % (Auto) Lymph % (Auto) Edmunds % (Auto) Eos % (Auto) Baso % (Auto) Lymph # (Auto) Edmunds # (Auto) Eos # (Auto) Baso # (Auto) Abs Immat Gran (auto) Absolute Neuts (auto) Absolute Nucleated RBC Nucleated RBC % (auto) Smear Tech's Comments PT INR APTT O2 Saturation ABG pH at Pt Temp ABG pCO2 at Pt Temp ABG pO2 at Pt Temp ABG HCO3 ABG Base Excess (Actual) VBG pH 7.42 VBG pCO2 38 VBG pO2 52 VBG HCO3 24 VBG O2 Saturation 80.0 VBG Base Excess 0.7 Sodium 138 Potassium 4.6 Chloride 97 Carbon Dioxide 25 Anion Gap 21 H BUN 13 Creatinine 0.79 Estim Creat Clear Calc 118.2 Estimated GFR > 60 POC Glucose Random Glucose 258 H Lactic Acid Lactic Acid F/U @ 2Hr Lactic Acid F/U @ 4Hr Calcium 8.9 Phosphorus 5.4 H Magnesium Total Bilirubin 0.5 AST 37 D ALT 28 Alkaline Phosphatase 104 Troponin I High Sens 1254.8 H* D C-Reactive Protein 5.73 H B-Natriuretic Peptide Total Protein 5.9 L Albumin 3.6 Vancomycin Trough 05/29/22 05/29/22 05/29/22 06:00 07:15 08:18 WBC 23.4 H RBC 4.46 L Hgb 12.0 L Hct 37.7 L MCV 84.5 MCH 26.9 L MCHC 31.8 RDW 13.5 Plt Count 366 MPV 10.3 Immature Gran % (Auto) 2.4 H Neut % (Auto) 82.0 H Lymph % (Auto) 9.4 L Edmunds % (Auto) 5.9 Eos % (Auto) 0.0 Baso % (Auto) 0.3 Lymph # (Auto) 2.2 Edmunds # (Auto) 1.4 H Eos # (Auto) 0.0 Baso # (Auto) 0.1 Abs Immat Gran (auto) 0.57 H Absolute Neuts (auto) 19.1 H Absolute Nucleated RBC 0.000 Nucleated RBC % (auto) 0.0 Smear Tech's Comments PT INR APTT O2 Saturation ABG pH at Pt Temp ABG pCO2 at Pt Temp ABG pO2 at Pt Temp ABG HCO3 ABG Base Excess (Actual) VBG pH VBG pCO2 VBG pO2 VBG HCO3 VBG O2 Saturation VBG Base Excess Sodium Potassium Chloride Carbon Dioxide Anion Gap BUN Creatinine Estim Creat Clear Calc Estimated GFR POC Glucose 195 H Random Glucose Lactic Acid Lactic Acid F/U @ 2Hr Lactic Acid F/U @ 4Hr Calcium Phosphorus Magnesium Total Bilirubin AST ALT Alkaline Phosphatase Troponin I High Sens C-Reactive Protein B-Natriuretic Peptide Total Protein Albumin Vancomycin Trough 22.4 H 05/29/22 05/29/22 05/29/22 08:18 08:18 11:24 WBC RBC Hgb Hct MCV MCH MCHC RDW Plt Count MPV Immature Gran % (Auto) Neut % (Auto) Lymph % (Auto) Edmunds % (Auto) Eos % (Auto) Baso % (Auto) Lymph # (Auto) Edmunds # (Auto) Eos # (Auto) Baso # (Auto) Abs Immat Gran (auto) Absolute Neuts (auto) Absolute Nucleated RBC Nucleated RBC % (auto) Smear Tech's Comments PT 11.9 INR 1.0 APTT 35.4 O2 Saturation ABG pH at Pt Temp ABG pCO2 at Pt Temp ABG pO2 at Pt Temp ABG HCO3 ABG Base Excess (Actual) VBG pH VBG pCO2 VBG pO2 VBG HCO3 VBG O2 Saturation VBG Base Excess Sodium Potassium Chloride Carbon Dioxide Anion Gap BUN Creatinine Estim Creat Clear Calc Estimated GFR POC Glucose 149 H Random Glucose Lactic Acid Lactic Acid F/U @ 2Hr Lactic Acid F/U @ 4Hr 4.1 H* Calcium Phosphorus Magnesium Total Bilirubin AST ALT Alkaline Phosphatase Troponin I High Sens C-Reactive Protein B-Natriuretic Peptide Total Protein Albumin Vancomycin Trough 05/29/22 05/29/22 13:26 13:26 WBC RBC Hgb Hct MCV MCH MCHC RDW Plt Count MPV Immature Gran % (Auto) Neut % (Auto) Lymph % (Auto) Edmunds % (Auto) Eos % (Auto) Baso % (Auto) Lymph # (Auto) Edmunds # (Auto) Eos # (Auto) Baso # (Auto) Abs Immat Gran (auto) Absolute Neuts (auto) Absolute Nucleated RBC Nucleated RBC % (auto) Smear Tech's Comments PT INR APTT O2 Saturation ABG pH at Pt Temp ABG pCO2 at Pt Temp ABG pO2 at Pt Temp ABG HCO3 ABG Base Excess (Actual) VBG pH VBG pCO2 VBG pO2 VBG HCO3 VBG O2 Saturation VBG Base Excess Sodium Potassium Chloride Carbon Dioxide Anion Gap BUN Creatinine Estim Creat Clear Calc Estimated GFR POC Glucose Random Glucose Lactic Acid 2.3 H* Lactic Acid F/U @ 2Hr Lactic Acid F/U @ 4Hr Calcium Phosphorus Magnesium 1.7 Total Bilirubin AST ALT Alkaline Phosphatase Troponin I High Sens C-Reactive Protein B-Natriuretic Peptide Total Protein Albumin Vancomycin Trough Microbiology Microbiology Results: Microbiology 05/26/22 12:08 Blood - Venous Blood Culture - Preliminary No growth after 48 hours. 05/26/22 12:08 Blood - Venous Blood Culture - Preliminary No growth after 48 hours. 05/20/22 12:26 Blood - Venous Blood Culture - Preliminary Gram positive [place] 05/20/22 12:58 Blood - Venous Blood Culture - Preliminary Gram positive [place] 05/20/22 17:21 Back Gram Stain - Final 05/20/22 17:21 Back Routine Culture - Final Propionibacterium acnes Quality Stroke Does the patient have a stroke diagnosis?: No VTE Prior VTE?: No VTE Risk Level:: Medical - moderate - high VTE Device Contraindication: Treatment Not Indicated VTE Drug Contraindication: N/A - Med Ordered Critical Care Time Critical Care Time (minutes): 90
[2022-05-29 14:22] LABS: Troponin-I High Sensitivity 1088.6 ng/L (<3.5-35.0)
--- NOTE | 2022-05-29 15:41 | MHC.CM.PN ---
Pt transferred to ICU for brief period of intubation for respiratory distress. Now extubated and showing signs of improvement. Original d/c plan for a return to home with family support and new DM outpt services. CM to follow for finalization of d/c needs.
[2022-05-29 15:50] LABS: Reflex Lactate? Lactic Acid Added
[2022-05-29 16:21] LABS: Cancel Lactic Acid Canceled
[2022-05-29 16:56] LABS: Glucose, Whole Blood 185 mg/dL (60-115)
--- NOTE | 2022-05-29 17:02 | PM.CNCAR ---
History of Present Illness History of Present Illness Date of Service: 05/29/22 Requesting physician: Edward Alejandra Consult reason: other (Ischemic cardiomyopathy) Chief complaint: cyst right upper back Narrative: I was consulted to see Dmitriy in cardiology consultation today as he developed cardiopulmonary arrest last night and jeramy conti was called. Reviewed the EKG strip during this time which showed bradycardia and therefore this is consistent with pulseless electrical activity. Most likely cause metabolic. However patient and echocardiogram yesterday for bacteremia and was noted to have severe ischemic cardiomyopathy with LVEF of 25-30%. Patient is currently awake and oriented. He had no clue that he had any prior cardiac issues he has not seen a doctor in many years. He had injury at work on the right ankle which is status post surgery and says he has had to have 4 5 surgeries but since then has not seen a doctor. He came in because of back pain and was noted to have a trapezius abscess for which she undergo incision and drainage. He has since then developed significant sepsis and bacteremia and acidosis. He developed this cardiac arrest last night underwent CP and was brought to the ICU. ICD is noted to have rising and falling troponin consistent with myocardial necrosis and suggestive NSTEMI. This is most likely secondary to hypotension and possibly related to sepsis and acidosis. He is getting broad-spectrum antibiotics at this point time. He has never had any point time any chest pain. Currently denies any chest pain. Denies any shortness of breath, orthopnea or leg edema. He also was not aware that he had diabetes. He smoked up to 2 weeks ago. Family history of coronary disease in his father. Review of Systems Constitutional: Constitutional: Reports no additional constitutional complaints Eyes: Eyes: Reports no additional eye complaints Cardiovascular: Cardiovascular: Reports no additional cardiovascular complaints Respiratory: Respiratory: Reports no additional respiratory complaints Gastrointestinal: Gastrointestinal: Reports no additional gastrointestinal complaints Genitourinary: Genitourinary: Reports no additional male genitourinary complaints Musculoskeletal: Musculoskeletal: Reports no additional musculoskeletal complaints Neurologic: Reports system reviewed and no additional complaints, except as documented PMF Past Medical History Medical History Diabetes DVT (deep venous thrombosis) Severe sepsis Family History Family History Mother Diabetes Father Diabetes Social History Social History Household Members: Spouse and Family Household Members Other:: 6 Housing: House Do you presently have visiting nurse or other home services: No Alcohol intake: former Patient Tobacco Use Status: Former Tobacco user Quit Date: 2 wks ago Tobacco use type: Cigarette Cigarettes Per Day: 10 Years Smoked: 30 e-Cigarette/Vaping Use: Never Used Second Hand Smoke Exposure: Yes service: No Current occupational status: disabled Meds Allergies Allergy/AdvReac Type Severity Reaction Status Date / Time No Known Allergies Allergy Verified 08/13/20 15:28 Active Medications: Current Medications Acetaminophen (Acetaminophen 325 Mg Tablet) 650 mg PO Q6H PRN PRN Reason: Pain, Mild (Pain Scale 1-3) Last Admin: 05/26/22 16:35 Dose: 650 mg Albuterol/Ipratropium (Albuterol/Iprat 2.5/0.5mg 3 Ml Ampul.Neb) 3 ml INHALE RQ4H PRN PRN Reason: wheezing Docusate Sodium (Docusate Sodium 100 Mg Capsule) 100 mg PO BID PRN PRN Reason: Constipation Enoxaparin Sodium (Enoxaparin Sodium 100 Mg/Ml Syringe) 90 mg SUBCUT Q12H [facility] Last Admin: 05/29/22 11:19 Dose: Not Given Furosemide (Furosemide 40 Mg/4 Ml Vial) 40 mg IVPUSH Q12H [facility]; Protocol Last Admin: 05/29/22 08:19 Dose: 40 mg Piperacillin Sod/Tazobactam (Sod 4.5 gm/ Sodium Chloride) 100 mls @ 200 mls/hr IV Q6H [facility] Last Infusion: 05/29/22 14:26 Dose: Infused Vancomycin HCl 1,500 mg/ (Sodium Chloride) 500 mls @ 333.333 mls/hr IV Q12H [facility] Furosemide 200 mg/ Sodium (Chloride) 100 mls @ 1 mls/hr IVCONT .Q24H [facility] Insulin Glargine (Insulin Glargine,Hum.Rec.Anlog 100 Unit/Ml 10 Ml Vial) 20 unit SUBCUT DAILY [facility] Last Admin: 05/29/22 13:50 Dose: Not Given Insulin Human Lispro (Insulin Lispro 100 Unit/Ml 3 Ml Vial) 0 unit SUBCUT QIDACHS [facility]; Protocol Last Admin: 05/29/22 12:37 Dose: Not Given Pharmacy Consult (Consult Rx Perform Med Rec) 1 each MISCELLANE ONCE PRN PRN Reason: Consult order Pharmacy Consult (Consult Rx Vancomycin Dosing) 1 each MISCELLANE DAILY PRN PRN Reason: Consult order Polyethylene Glycol (Polyethylene Glycol 3350 17 Gm Powd.Pack) 17 gm PO DAILY [facility] Last Admin: 05/29/22 08:13 Dose: Not Given Sodium Chloride (0.9 % Sodium Chloride Flush 3 Ml Syringe) 3 ml IVFLUSH QSHIFT [facility] Last Admin: 05/29/22 16:45 Dose: 3 ml Home Medications Medication Instructions Recorded Confirmed Last Taken Type No Known Home Meds 05/20/22 05/20/22 Unknown History Physical Exam Vital Signs: Vital Signs: Last Vital Signs Temp 96.9 F 05/29/22 08:00 Pulse 108 H 05/29/22 16:00 Resp 22 H 05/29/22 16:00 BP 127/73 05/29/22 16:00 Pulse Ox 96 05/29/22 16:00 O2 Del Method 05/29/22 16:00 O2 Flow Rate 4 05/29/22 16:00 FiO2 25 05/29/22 11:11 BMI result Body Mass Index 30.4 Const: General: cooperative, comfortable, no acute distress, alert and awake Nutritional Appearance: overweight Orientation/consciousness: patient oriented x3 HEENT: Head: Yes normocephalic and Yes atraumatic Neck: Neck: Yes trachea midline, Yes supple and Yes no JVD Resp: Effort & Inspection: normal respiratory effort Auscultation: clear to auscultation bilaterally Cardio: Jugular venous distension: no JVD Palpation: abnormal PMI displaced PMI Rate: tachycardic Rhythm: regular rhythm Heart sounds: S1 normal heart sound present, S2 normal heart sound present, no click, no gallops, no murmurs and no rubs GI: Auscultation: normal bowel sounds Skin: General skin exam: no rashes or lesions noted Neuro: General: patient oriented x3 and no focal motor deficits Objective Labs and Meds Result diagrams: 05/29/22 06:00 05/29/22 04:45 Lab results: Laboratory Results - last 24 hr 05/28/22 05/28/22 05/28/22 19:31 20:28 20:28 WBC RBC Hgb Hct MCV MCH MCHC RDW Plt Count MPV Immature Gran % (Auto) Neut % (Auto) Lymph % (Auto) Weston % (Auto) Eos % (Auto) Baso % (Auto) Lymph # (Auto) Weston # (Auto) Eos # (Auto) Baso # (Auto) Abs Immat Gran (auto) Absolute Neuts (auto) Absolute Nucleated RBC Nucleated RBC % (auto) Smear Tech's Comments PT INR APTT O2 Saturation ABG pH at Pt Temp ABG pCO2 at Pt Temp ABG pO2 at Pt Temp ABG HCO3 ABG Base Excess (Actual) VBG pH VBG pCO2 VBG pO2 VBG HCO3 VBG O2 Saturation VBG Base Excess Sodium 137 Potassium 4.8 Chloride 99 Carbon Dioxide 22 Anion Gap 21 H BUN 10 Creatinine 0.74 Estim Creat Clear Calc 126.2 Estimated GFR > 60 POC Glucose 159 H Random Glucose 250 H D Lactic Acid Lactic Acid F/U @ 2Hr Lactic Acid F/U @ 4Hr Calcium 8.5 Phosphorus Magnesium Total Bilirubin 0.2 AST 21 ALT 18 Alkaline Phosphatase 112 Troponin I High Sens 40.4 H C-Reactive Protein B-Natriuretic Peptide 486 H Total Protein 6.4 L Albumin 3.2 L Vancomycin Trough 05/28/22 05/28/22 05/29/22 21:17 22:00 01:09 WBC 34.9 H* RBC 4.86 Hgb 13.0 L Hct 41.1 L MCV 84.6 MCH 26.7 L MCHC 31.6 RDW 13.5 Plt Count 458 H MPV 8.9 L Immature Gran % (Auto) 4.6 H Neut % (Auto) 83.5 H Lymph % (Auto) 6.3 L Weston % (Auto) 4.8 Eos % (Auto) 0.3 Baso % (Auto) 0.5 Lymph # (Auto) 2.2 Weston # (Auto) 1.7 H Eos # (Auto) 0.1 Baso # (Auto) 0.2 Abs Immat Gran (auto) 1.60 H Absolute Neuts (auto) 29.2 H Absolute Nucleated RBC 0.000 Nucleated RBC % (auto) 0.0 Smear Tech's Comments VERIFIED PT INR APTT O2 Saturation 100.0 ABG pH at Pt Temp 7.28 L ABG pCO2 at Pt Temp 34 ABG pO2 at Pt Temp 262 H ABG HCO3 16 L ABG Base Excess (Actual) -9.4 VBG pH VBG pCO2 VBG pO2 VBG HCO3 VBG O2 Saturation VBG Base Excess Sodium Potassium Chloride Carbon Dioxide Anion Gap BUN Creatinine Estim Creat Clear Calc Estimated GFR POC Glucose Random Glucose Lactic Acid Lactic Acid F/U @ 2Hr Lactic Acid F/U @ 4Hr Calcium Phosphorus Magnesium Total Bilirubin AST ALT Alkaline Phosphatase Troponin I High Sens 475.7 H* D C-Reactive Protein B-Natriuretic Peptide Total Protein Albumin Vancomycin Trough 05/29/22 05/29/22 05/29/22 01:09 03:25 04:45 WBC RBC Hgb Hct MCV MCH MCHC RDW Plt Count MPV Immature Gran % (Auto) Neut % (Auto) Lymph % (Auto) Weston % (Auto) Eos % (Auto) Baso % (Auto) Lymph # (Auto) Weston # (Auto) Eos # (Auto) Baso # (Auto) Abs Immat Gran (auto) Absolute Neuts (auto) Absolute Nucleated RBC Nucleated RBC % (auto) Smear Tech's Comments PT INR APTT O2 Saturation ABG pH at Pt Temp ABG pCO2 at Pt Temp ABG pO2 at Pt Temp ABG HCO3 ABG Base Excess (Actual) VBG pH VBG pCO2 VBG pO2 VBG HCO3 VBG O2 Saturation VBG Base Excess Sodium 138 Potassium 4.6 Chloride 97 Carbon Dioxide 25 Anion Gap 21 H BUN 13 Creatinine 0.79 Estim Creat Clear Calc 118.2 Estimated GFR > 60 POC Glucose Random Glucose 258 H Lactic Acid 2.9 H* Lactic Acid F/U @ 2Hr 2.4 H* Lactic Acid F/U @ 4Hr Calcium 8.9 Phosphorus 5.4 H Magnesium Total Bilirubin 0.5 AST 37 D ALT 28 Alkaline Phosphatase 104 Troponin I High Sens C-Reactive Protein 5.73 H B-Natriuretic Peptide Total Protein 5.9 L Albumin 3.6 Vancomycin Trough 05/29/22 05/29/22 05/29/22 04:45 04:47 06:00 WBC 23.4 H RBC 4.46 L Hgb 12.0 L Hct 37.7 L MCV 84.5 MCH 26.9 L MCHC 31.8 RDW 13.5 Plt Count 366 MPV 10.3 Immature Gran % (Auto) 2.4 H Neut % (Auto) 82.0 H Lymph % (Auto) 9.4 L Weston % (Auto) 5.9 Eos % (Auto) 0.0 Baso % (Auto) 0.3 Lymph # (Auto) 2.2 Weston # (Auto) 1.4 H Eos # (Auto) 0.0 Baso # (Auto) 0.1 Abs Immat Gran (auto) 0.57 H Absolute Neuts (auto) 19.1 H Absolute Nucleated RBC 0.000 Nucleated RBC % (auto) 0.0 Smear Tech's Comments PT INR APTT O2 Saturation ABG pH at Pt Temp ABG pCO2 at Pt Temp ABG pO2 at Pt Temp ABG HCO3 ABG Base Excess (Actual) VBG pH 7.42 VBG pCO2 38 VBG pO2 52 VBG HCO3 24 VBG O2 Saturation 80.0 VBG Base Excess 0.7 Sodium Potassium Chloride Carbon Dioxide Anion Gap BUN Creatinine Estim Creat Clear Calc Estimated GFR POC Glucose Random Glucose Lactic Acid Lactic Acid F/U @ 2Hr Lactic Acid F/U @ 4Hr Calcium Phosphorus Magnesium Total Bilirubin AST ALT Alkaline Phosphatase Troponin I High Sens 1254.8 H* D C-Reactive Protein B-Natriuretic Peptide Total Protein Albumin Vancomycin Trough 05/29/22 05/29/22 05/29/22 07:15 08:18 08:18 WBC RBC Hgb Hct MCV MCH MCHC RDW Plt Count MPV Immature Gran % (Auto) Neut % (Auto) Lymph % (Auto) Weston % (Auto) Eos % (Auto) Baso % (Auto) Lymph # (Auto) Weston # (Auto) Eos # (Auto) Baso # (Auto) Abs Immat Gran (auto) Absolute Neuts (auto) Absolute Nucleated RBC Nucleated RBC % (auto) Smear Tech's Comments PT INR APTT O2 Saturation ABG pH at Pt Temp ABG pCO2 at Pt Temp ABG pO2 at Pt Temp ABG HCO3 ABG Base Excess (Actual) VBG pH VBG pCO2 VBG pO2 VBG HCO3 VBG O2 Saturation VBG Base Excess Sodium Potassium Chloride Carbon Dioxide Anion Gap BUN Creatinine Estim Creat Clear Calc Estimated GFR POC Glucose 195 H Random Glucose Lactic Acid Lactic Acid F/U @ 2Hr Lactic Acid F/U @ 4Hr 4.1 H* Calcium Phosphorus Magnesium Total Bilirubin AST ALT Alkaline Phosphatase Troponin I High Sens C-Reactive Protein B-Natriuretic Peptide Total Protein Albumin Vancomycin Trough 22.4 H 05/29/22 05/29/22 05/29/22 08:18 11:24 13:26 WBC RBC Hgb Hct MCV MCH MCHC RDW Plt Count MPV Immature Gran % (Auto) Neut % (Auto) Lymph % (Auto) Weston % (Auto) Eos % (Auto) Baso % (Auto) Lymph # (Auto) Weston # (Auto) Eos # (Auto) Baso # (Auto) Abs Immat Gran (auto) Absolute Neuts (auto) Absolute Nucleated RBC Nucleated RBC % (auto) Smear Tech's Comments PT 11.9 INR 1.0 APTT 35.4 O2 Saturation ABG pH at Pt Temp ABG pCO2 at Pt Temp ABG pO2 at Pt Temp ABG HCO3 ABG Base Excess (Actual) VBG pH VBG pCO2 VBG pO2 VBG HCO3 VBG O2 Saturation VBG Base Excess Sodium Potassium Chloride Carbon Dioxide Anion Gap BUN Creatinine Estim Creat Clear Calc Estimated GFR POC Glucose 149 H Random Glucose Lactic Acid 2.3 H* Lactic Acid F/U @ 2Hr Lactic Acid F/U @ 4Hr Calcium Phosphorus Magnesium Total Bilirubin AST ALT Alkaline Phosphatase Troponin I High Sens C-Reactive Protein B-Natriuretic Peptide Total Protein Albumin Vancomycin Trough 05/29/22 05/29/22 05/29/22 13:26 13:26 16:52 WBC RBC Hgb Hct MCV MCH MCHC RDW Plt Count MPV Immature Gran % (Auto) Neut % (Auto) Lymph % (Auto) Weston % (Auto) Eos % (Auto) Baso % (Auto) Lymph # (Auto) [place]on # (Auto) Eos # (Auto) Baso # (Auto) Abs Immat Gran (auto) Absolute Neuts (auto) Absolute Nucleated RBC Nucleated RBC % (auto) Smear Tech's Comments PT INR APTT O2 Saturation ABG pH at Pt Temp ABG pCO2 at Pt Temp ABG pO2 at Pt Temp ABG HCO3 ABG Base Excess (Actual) VBG pH VBG pCO2 VBG pO2 VBG HCO3 VBG O2 Saturation VBG Base Excess Sodium Potassium Chloride Carbon Dioxide Anion Gap BUN Creatinine Estim Creat Clear Calc Estimated GFR POC Glucose 185 H Random Glucose Lactic Acid Lactic Acid F/U @ 2Hr Lactic Acid F/U @ 4Hr Calcium Phosphorus Magnesium 1.7 Total Bilirubin AST ALT Alkaline Phosphatase Troponin I High Sens 1088.6 H* C-Reactive Protein B-Natriuretic Peptide Total Protein Albumin Vancomycin Trough Imaging Radiologist's impression: Impressions Chest X-Ray 05/28/22 20:30 IMPRESSION: Increased central vascular prominence with indistinctness to the vessels likely reflecting a component of mild pulmonary edema. Small layering left effusion with left basilar consolidation/atelectasis. Chest X-Ray 05/28/22 22:55 IMPRESSION: 1. Endotracheal tube with tip terminating approximately 5 cm proximal to the karen. 2. Bilateral pleural effusions with probable layering. Superjacent atelectasis and infiltrates cannot be excluded. Underlying mild congestion cannot be excluded. Chest X-Ray 05/29/22 00:15 IMPRESSION: Newly placed left IJ catheter with tip in the proximal SVC against the lateral wall. Tip of orogastric tube below the diaphragm but not visualized. Other findings as described above. Assessment and Plan (1) NSTEMI (non-ST elevated myocardial infarction): Status: Acute Patient is NSTEMI secondary to cardiopulmonary arrest secondary to pulseless electrical activity with hypertension and hypoperfusion as well as acidosis as well as sepsis. However given that he has significant ischemic cardiomyopathy and likelihood of underlying significant coronary artery disease could treat him with anticoagulation for 48 hours. Start him on low-dose aspirin therapy as well as high-intensity statin therapy as long as the no contraindication. Will also start on low-dose metoprolol therapy for now. Eventually require ischemic workup. (2) Ischemic cardiomyopathy: Status: Acute Severe ischemic cardiomyopathy secondary to what appears to be prior LAD territory infarction. Patient and no clue about this. He definitely has underlying significant coronary artery disease which will need eventual workup with a stress test and/or cardiac catheterization. At this point time his medical condition is secondary to his acute infectious issues and this needs to be treated aggressively along with his diabetes. Can start him on low-dose metoprolol therapy. Would not be aggressive in up titrating his neurohormonal modulation at this point time given his softer blood pressure and ongoing sepsis with risk for vaso dilatory shock. Continue aggressive management from infections perspective. Once blood pressure is stable can gradually add vasodilators therapy. He is currently not having any signs of congestive heart failure. Will follow with you Procedures Date of Service Date of Service: 05/29/22
[2022-05-29] MEDS: Furosemide 200 MG in 0.9 % Sodium Chloride 80 ML IVCONT (17:12)
[2022-05-29] MEDS: vancomycin HCL 1,500 MG in 0.9 % Sodium Chloride 500 ML 333.33 MG IV (17:30)
[2022-05-29] MEDS: Acetaminophen 325 MG TABLET 650 MG PO (18:11)
[2022-05-29] MEDS: Metoprolol Tartrate 12.5 MG HALFTAB PO ×2 (18:11→18:51)
[2022-05-29] MEDS: Atorvastatin Calcium 80 MG TABLET PO (18:11)
[2022-05-29] MEDS: oxyCODONE HCl Immed Release 5 MG TABLET PO ×2 (18:12→23:49)
[2022-05-29 18:36] LABS: Hematocrit 37.7 % (42.0-52.0); Hemoglobin 12.5 g/dl (14.0-18.0); Mean Corpuscular HGB Conc 33.2 g/dl (31.0-36.0); Mean Corpuscular Hemoglobin 27.8 pg (27.0-33.0); Mean Corpuscular Volume 83.8 fL (80.0-98.0); Mean Platelet Volume 9.1 fL (9.4-12.4); Platelet Count 409 X10*3/uL (160-400); Red Cell Distribution Width 13.7 % (11.0-16.0); White Blood Count 17.6 X10*3/uL (4.8-10.8)
[2022-05-29] MEDS: Magnesium Sulfate/H2O 2 GM/50 ML PIGGYBACK IV (18:43)
--- NOTE | 2022-05-29 19:49 | PC.NURSE ---
11:23 sedation vacation initiated per MD - propofol paused 11:24 PSV 5/5 25% - pt tolerated well, following commands, VSS. Pt extubated by RT and RN at 11:35, fentanyl gtt discontinued, ETCO3 30 Pt A+Ox4 but forgetful, drowsy, able to follow commands Pt has 1+ edema to BLE and 1+ to right upper extremity. Pt has kinsey catheter and lasix gtt started 17:30 @ 2mg/hr with clear yellow urine output Pt given 2G IV Magnesium Pt has chronic diabetic ulcer to right heel - dressing changed 16:30 with silver alginate, gauze and gauze roll abscess to right upper back with moderate amounts of purulent drainage - dressing changed 16:30 gauze, abd pad Pt and family member at bedside educated on medications and plan of care
[2022-05-29 21:18] LABS: Glucose, Whole Blood 190 mg/dL (60-115)
[2022-05-29] MEDS: Insulin Lispro 100 UNIT/ML 3 ML VIAL SUBCUT (22:38)
[2022-05-29] MEDS: Enoxaparin Sodium 100 MG/ML SYRINGE 90 MG SUBCUT (22:38)
--- NOTE | 2022-05-29 22:47 | PC.NURSE ---
Shift eval 7p-11p: Patient alert, oriented, slightly forgetful. Patient repos Q2H for comfort. BP 90's systolic, HR 99-101 SR/ST. Clarified order for IV lasix & lovenox & one time dose of lopressor. HR went up to 110's with activity, but did not sustain. Dieter KOO ordered to hold lopressor & lasix IVP (keep drip going). Order to give lovenox even though it was held this morning for bloody sputum. Patient comfortable once repositioned. Patient in pain when lying flat, but maintains O2sat.
[2022-05-30] VITALS (18 sets, daily range): BP systolic 100–133; BP diastolic 53–82; PULSE 89–108; RESP 16–39; TEMP 36.4–37.2; O2SAT 87–99; BMI 30.9
--- NOTE | 2022-05-30 | ECG_ITS ---
Test Reason : cp Blood Pressure : / mmHG Vent. Rate : 105 BPM Atrial Rate : 105 BPM P-R Int : 156 ms QRS Dur : 104 ms QT Int : 386 ms P-R-T Axes : 047 -02 096 degrees QTc Int : 510 ms Sinus tachycardia Possible Left atrial enlargement Anteroseptal infarct (cited on or before 28-MAY-2022) ST elevation in Anterior leads ST more depressed Lateral leads Abnormal ECG When compared with ECG of 29-MAY-2022 13:06, No significant change was found Referred By: Dieter Pittman Electronically Signed By:MARLI FREEMAN MD
[2022-05-30] MEDS: Piperacillin Sodium/Tazobactam 4.5 GM in 0.9 % Sodium Chloride 100 ML IV ×3 (00:55→12:35)
--- NOTE | 2022-05-30 03:30 | PC.NURSE ---
At 0200 patient complained of chest pain. No sob, no pain radiating to left shoulder or jaw. Patient stated it felt musculoskeletal and could have been from compressions. EKG done per Dieter KOO order. Trops ordered and drawn. Resulted at 573.0. Trending down. Dieter Pittman made aware. Patient encouraged to report any other changes. Call sullivan in reach. at bedside.
[2022-05-30] MEDS: vancomycin HCL 1,500 MG in 0.9 % Sodium Chloride 500 ML 333.33 MG IV (05:39)
[2022-05-30 05:48] LABS: Creatinine Clr Calc Pharmacy 131.5; Estimated Glomerular Filt Rate > 60
[2022-05-30 05:53] LABS: Anion Gap 15 (12-20); Blood Urea Nitrogen 11 mg/dL (9-16); Calcium 8.5 mg/dL (8.4-10.2); Carbon Dioxide 31 mmol/L (22-29); Chloride 95 mmol/L (96-108); Creatinine Clr Calc Pharmacy 127.9; Estimated Glomerular Filt Rate > 60; Glucose Random 127 mg/dL (60-115); Magnesium 1.8 mg/dL (1.6-2.6); Phosphorus 3.9 mg/dL (2.7-4.5); Potassium 3.6 mmol/L (3.3-5.1); Sodium 137 mmol/L (135-145)
[2022-05-30 05:54] LABS: B Type Natriuretic Peptide 634 pg/mL (<100)
[2022-05-30 05:56] LABS: Troponin-I High Sensitivity 564.1 ng/L (<3.5-35.0)
[2022-05-30 07:18] LABS: Glucose, Whole Blood 134 mg/dL (60-115)
[2022-05-30] MEDS: oxyCODONE HCl Immed Release 5 MG TABLET PO ×4 (07:39→21:25)
[2022-05-30] MEDS: Metoprolol Tartrate 12.5 MG HALFTAB PO ×2 (07:39→21:21)
[2022-05-30] MEDS: Insulin Glargine,Hum.rec.anlog 100 UNIT/ML 10 ML VIAL 20 UNIT SUBCUT (07:39)
[2022-05-30] MEDS: polyethylene glycoL 3350 17 GM POWD.PACK PO (07:39)
[2022-05-30] MEDS: Aspirin Enteric Coated 81 MG TABLET.DR PO (07:39)
[2022-05-30] MEDS: Atorvastatin Calcium 80 MG TABLET PO (07:39)
[2022-05-30] MEDS: Acetaminophen 325 MG TABLET 650 MG PO ×2 (07:40→12:59)
[2022-05-30] MEDS: 0.9 % Sodium Chloride Flush 3 ML SYRINGE IVFLUSH ×3 (07:41→23:24)
--- NOTE | 2022-05-30 10:18 | MHC.CLN ---
F/U PT WAS EXTUBATED 05/29 DIET RX: 1800DM -APPROPRIATE MONITOR PO INTAKE CLOSELY
--- NOTE | 2022-05-30 10:59 | PM.PNCARD ---
Subjective Subjective Date of Service: 05/30/22 <MARGARITO Dewitt - Last Filed: 05/30/22 11:47> 05/30/22 <Don Herron MD - Last Filed: 05/30/22 12:24> Principal diagnosis: s/p PEA arrest, Ischemic CMP, evidence of prior UT <MARGARITO Dewitt - Last Filed: 05/30/22 11:47> Interval history: Seen at 0920. Today he is observed resting in bed. Reports fatigue and upper back discomfort ( site of prior abcess). Breathing comfortable. Wearing O2 with nasal cannula. No cough. No chest pains, palpitations, dizziness. Mild nonpitting edema of his lower legs. IV Lasix drip infusing at 2mg/hr. Rivers cath in place. present at bedside. <MARGARITO Dewitt - Last Filed: 05/30/22 11:47> Review of Systems Review of Systems as above <MARGARITO Dewitt - Last Filed: 05/30/22 11:47> Physical Exam Vital Signs: Last Vital Signs Temp 98.5 F 05/30/22 08:00 Pulse 91 05/30/22 10:00 Resp 39 H 05/30/22 10:00 BP 104/61 05/30/22 10:00 Pulse Ox 91 L 05/30/22 10:00 O2 Del Method 05/30/22 10:00 O2 Flow Rate 1 05/30/22 10:00 FiO2 25 05/29/22 11:11 BMI result Body Mass Index 30.9 <MARGARITO Dewitt - Last Filed: 05/30/22 11:47> Const Other: pale, ill appearing, mildly diaphoretic skin <MARGARITO Dewitt - Last Filed: 05/30/22 11:47> General: no acute distress, alert and awake <MARGARITO Dewitt - Last Filed: 05/30/22 11:47> Orientation/consciousness: patient oriented x3 <MARGARITO Dewitt - Last Filed: 05/30/22 11:47> Neck Neck: Yes no JVD <MARGARITO Dewitt - Last Filed: 05/30/22 11:47> Resp Effort & Inspection: normal respiratory effort and able to speak in complete sentences <[facility] DAVIS CokerC - Last Filed: 05/30/22 11:47> Auscultation: clear to auscultation bilaterally, no crackles, no rhonchi and no wheezes <[facility] DAVIS CokerC - Last Filed: 05/30/22 11:47> Cardio Palpation: normal PMI <[facility] Sheela [facility] - Last Filed: 05/30/22 11:47> Rate: regular rate [facility] - Last Filed: 05/30/22 11:47> Rhythm: regular rhythm [facility] - Last Filed: 05/30/22 11:47> Heart sounds: S1 normal heart sound present and S2 normal heart sound present <[facility] DAVIS Coker-C - Last Filed: 05/30/22 11:47> Neuro General: patient oriented x3 <[facility] Sheela [facility] - Last Filed: 05/30/22 11:47> Extrem Other: mild edema in lower legs <[facility] - Last Filed: 05/30/22 11:47> Objective Labs and Meds Result diagrams: : 05/29/22 18:19 05/30/22 05:10 <[facility] DAVIS Coker - Last Filed: 05/30/22 11:47> Lab results: Laboratory Results - last 24 hr 05/29/22 05/29/22 05/29/22 11:24 13:26 13:26 WBC RBC Hgb Hct MCV MCH MCHC RDW Plt Count MPV Absolute Nucleated RBC Nucleated RBC % (auto) Sodium Potassium Chloride Carbon Dioxide Anion Gap BUN Creatinine Estim Creat Clear Calc Estimated GFR POC Glucose 149 H Random Glucose Lactic Acid 2.3 H* Calcium Phosphorus Magnesium 1.7 Troponin I High Sens B-Natriuretic Peptide 05/29/22 05/29/22 05/29/22 13:26 16:52 18:19 WBC 17.6 H RBC 4.50 L Hgb 12.5 L Hct 37.7 L MCV 83.8 MCH 27.8 MCHC 33.2 RDW 13.7 Plt Count 409 H MPV 9.1 L Absolute Nucleated RBC 0.000 Nucleated RBC % (auto) 0.0 Sodium Potassium Chloride Carbon Dioxide Anion Gap BUN Creatinine Estim Creat Clear Calc Estimated GFR POC Glucose 185 H Random Glucose Lactic Acid Calcium Phosphorus Magnesium Troponin I High Sens 1088.6 H* B-Natriuretic Peptide 05/29/22 05/30/22 05/30/22 21:14 02:09 05:10 WBC RBC Hgb Hct MCV MCH MCHC RDW Plt Count MPV Absolute Nucleated RBC Nucleated RBC % (auto) Sodium Potassium Chloride Carbon Dioxide Anion Gap BUN Creatinine 0.71 Estim Creat Clear Calc 131.5 Estimated GFR > 60 POC Glucose 190 H Random Glucose Lactic Acid Calcium Phosphorus Magnesium Troponin I High Sens 573.0 H* B-Natriuretic Peptide 05/30/22 05/30/22 05/30/22 05:10 05:10 05:10 WBC RBC Hgb Hct MCV MCH MCHC RDW Plt Count MPV Absolute Nucleated RBC Nucleated RBC % (auto) Sodium 137 Potassium 3.6 D Chloride 95 L Carbon Dioxide 31 H Anion Gap 15 BUN 11 Creatinine 0.73 Estim Creat Clear Calc 127.9 Estimated GFR > 60 POC Glucose Random Glucose 127 H D Lactic Acid Calcium 8.5 Phosphorus 3.9 Magnesium 1.8 Troponin I High Sens 564.1 H* B-Natriuretic Peptide 634 H 05/30/22 07:15 WBC RBC Hgb Hct MCV MCH MCHC RDW Plt Count MPV Absolute Nucleated RBC Nucleated RBC % (auto) Sodium Potassium Chloride Carbon Dioxide Anion Gap BUN Creatinine Estim Creat Clear Calc Estimated GFR POC Glucose 134 H Random Glucose Lactic Acid Calcium Phosphorus Magnesium Troponin I High Sens B-Natriuretic Peptide <MARGARITO Dewitt - Last Filed: 05/30/22 11:47> Progress Note: A&P Assessment and plan (1) NSTEMI (non-ST elevated myocardial infarction): Status: Acute <MARGARITO Dewitt - Last Filed: 05/30/22 11:47> Assessment and Plan: Admit with trapezius abcess, sepsis, bacteremia. Being care for in the ICU. Echo completed on 05/20/22 showed EF 25-30%, regional WMA consistent with ischemic CMP. No prior known hx of CAD or CMP. He had PEA arrest evening of 05/28/22 with successful Code/ ROSC - notes reviewed. Event likely related to hypertension, acidosis, sepsis. Troponins then elevated up to 1254 and have trended down since then, 564.1 today. EKGs do show anterior Q waves suggesting prior LAD infarct. Once his condition has improved he will need an ischemic evaluation with pharmacological nuclear stress test. He is on anticoagulation with therapeutic dose Lovenox for 48 hr. Continue aspirin, high dose atorvastatin and low dose beta tereso. BP is soft - unable to further add or titrate neurohormonal modulation meds at present. Finding of NSTEMI, management and plan of care reviewed with pt and . Ongoing managment of his sepsis, bacteremia by edge cutting machine operator, and infectious disease. <MARGARITO Dewitt - Last Filed: 05/30/22 11:47> Admit with trapezius abcess, sepsis, bacteremia. Being care for in the ICU. Echo completed on 05/20/22 showed EF 25-30%, regional WMA consistent with ischemic CMP. No prior known hx of CAD or CMP. He had PEA arrest evening of 05/28/22 with successful Code/ ROSC - notes reviewed. Event likely related to hypertension, acidosis, sepsis. Troponins then elevated up to 1254 and have trended down since then, 564.1 today. EKGs do show anterior Q waves suggesting prior LAD infarct. Once his condition has improved he will need an ischemic evaluation with pharmacological nuclear stress test. He is on anticoagulation with therapeutic dose Lovenox for 48 hr. Continue aspirin, high dose atorvastatin and low dose beta tereso. BP is soft - unable to further add or titrate neurohormonal modulation meds at present. Finding of NSTEMI, management and plan of care reviewed with pt and . Ongoing managment of his sepsis, bacteremia by edge cutting machine operator, and infectious disease. Patient seen and examined. Case discussed with Janna Coker. Continue current medical therapy. Anticoagulation for 1 more day. Beyond that continue aspirin high-intensity statin therapy. Low-dose metoprolol therapy. Eventually require ischemic workup once medically cleared from sepsis/bacteremia perspective. <Don Herron MD - Last Filed: 05/30/22 12:24> (2) Ischemic cardiomyopathy: Status: Acute <MARGARITO Dewitt - Last Filed: 05/30/22 11:47> Assessment and Plan: As above <MARGARITO Dewitt - Last Filed: 05/30/22 11:47> As above Plan to continue low-dose metoprolol therapy for now. Heart rate is better controlled. Clinically does appear to be in significant heart failure at this point time. Currently on Lasix drip as he is getting a lot of fluids. Strict intake and output chart needs to be pursued. Once his blood pressure improves and his medical situation with sepsis/bacteremia improves with slowly initiate vasodilators therapy with valsartan for neurohormonal modulation. <Don Herron MD - Last Filed: 05/30/22 12:24> (3) Bacteremia: Status: Acute <MARGARITO Dewitt - Last Filed: 05/30/22 11:47> (4) Severe sepsis: Status: Acute <MARGARITO Dewitt - Last Filed: 05/30/22 11:47> (5) Diabetes: Status: Acute <MARGARITO Dewitt - Last Filed: 05/30/22 11:47> Assessment and Plan: New diagnosis of DM this admit with Hgb 13.9. Currently being managed by edge cutting machine operator <MARGARITO Dewitt - Last Filed: 05/30/22 11:47> Time Spent With Patient Time: Total time spent is greater than 50% in coordination of care (as documented) at patient's floor/unit and/or counseling patient: 24 <MARGARITO Dewitt - Last Filed: 05/30/22 11:47> Progress Note: Quality Stroke Does the patient have a stroke diagnosis?: No <MARGARITO Dewitt - Last Filed: 05/30/22 11:47> Procedures Date of Service Date of Service: 05/30/22 <MARGARITO Dewitt - Last Filed: 05/30/22 11:47>
[2022-05-30] MEDS: Enoxaparin Sodium 100 MG/ML SYRINGE 90 MG SUBCUT ×2 (11:03→21:21)
--- NOTE | 2022-05-30 11:29 | PC.NURSE ---
Addendum entered by Zabrina Muhammad RN 05/30/22 19:28: Pt A+Ox4, memory and forgetfulness improved through the day. Coordination improved throughout the day. OOB to bernardo chair 11:00-14:00 Kinsey catheter removed 11:30. Pt bladder scanned 17:00 and subsequently straight cathed 400ml (see below). PICC lined placed 16:00 in IR for long-term IV abx. pt stated nausea with lunch, decreased appetite and zofran prn given - some positive effect. Pt ate 50% dinner and denied nausea. Addendum entered by Zabrina Muhammad RN 05/30/22 18:56: 17:30 pt still no void. BLadder scan 406 mL. Pt straight cathed with 400 mL output. Pt DTV 00:30. Original Note: kinsey catheter removed 11:30am. [place] catheter applied. pt DTV 17:30.
[2022-05-30 11:37] LABS: Glucose, Whole Blood 167 mg/dL (60-115)
[2022-05-30] MEDS: Insulin Lispro 100 UNIT/ML 3 ML VIAL SUBCUT ×2 (12:11→16:57)
[2022-05-30] MEDS: ondansetron HCL 4 MG/2 ML VIAL IVPUSH ×2 (12:35→22:31)
--- NOTE | 2022-05-30 13:36 | P.PNCC_ITS ---
Subjective Subjective Date of Service: 05/30/22 Interval History: Mr. Corrales was transferred to the ICU on May 28 after a cardiac arrest on the medical godwin. The patient is a generally healthy 52 yo M with no PMHx other than a foot injury he sustained at work about 5 years ago that left him disabled.? He hasn?t worked since then.? He lives with his . The patient presented ambulatory to the ED on May 20 complaining of a large cyst on the right side of his upper back that had been getting progressively bigger over the past week.? On admission to the ED, the patient was mildly tachycardic, but vital signs were otherwise unremarkable.? Labs were notable for an elevated WBC, and a glucose level of 680, without DKA.? BUN and creatinine were normal.? Urine glucose was negative.? Hemoglobin A1c was 13.9. Chest CT showed a well marginated 10 x 14 cm fluid collection in the superficial soft tissues of the back to the right of the midline along the trapezius muscle, with internal fluid and gas.? The superficial collection did not extend to any of the bony structures, and there was no osseous erosion.? The lungs showed no acute disease. The patient was given fluids and antibiotics.? Dr. Retana saw him in the ED, and did an I&D.? About 250 cc of pus was suctioned out.? The wound was packed and dressed, and the patient was admitted to Medicine.? The Gram stain was reported as showing 3+ polys plus a mixed hever of Gram-positive rods and Gram- positive cocci.? The patient was continued on vancomycin and Zosyn. On May 24, the wound cultures were reported out as growing 4+? Propionibacterium acnes.? On May 25, both sets of BCs from the ED were reported back positive as growing GPR.? On 05/26, new BCs were drawn, so far negative.? The patient was seen by Dr. Gilmore, who recommended continuing vancomycin and stopping the Zosyn. ?On discharge, she recommended po doxycycline or Ceftin for 2 weeks. Echo done on 05/28 to r/o endocarditis showed:? Mildly dilated LV w severe LV systolic dysfunction, EF 25-30% with RWMAs, consistent with ischemic cardiomyopathy? No significant valvular Doppler findings.? The anterolateral wall, inferolateral wall, the apical inferior, basal anterior, mid inferior, mid inferoseptal, and basal anteroseptal segments are hypokinetic.? The apex, apical anterior, basal inferior, mid anterior, apical lateral, apical septum, basal inferoseptal, and mid anteroseptal segments were akinetic.? RV cavity size and systolic function were normal.? LA dilated.? AV OK.? Trace MR.? Unable to dopper TV.? The IVC was normal size w > 50% insp collapse. The night of 05/28, an [employer] was called by the bedside nurse for sudden onset of dyspnea.? CXR showed gross pulmon edema.? The patient was also tachycardic and severely hypertensive.? Labetalol and diltiazem were given.? The patient?s oxygenation improved, although he remained tachypneic.? While the physician was still in the room, the patient suddenly became unresponsive.? No blood pressure or pulse.? Jeffy conti was called.? The patient underwent CPR and ACLS, and was intubated.? ROSC was obtained after 13 minutes of CPR.? The patient was then transferred to the ICU. In the ICU, the patient was waking up and appropriately interactive.? A CVL was placed.? The patient was put back on Zosyn.? Lactate and trop levels were elevated.? EKG showed old ASWMI, but no acute ischemic changes.? He was given 1mg/kg Lovenox. The next morning (yesterday), the patient was awake and appropriate.? He was easily extubated.? Been doing well since then.? We put him on a low-dose Lasix drip.? Also put him on Lovenox 1 mg/kg bid x 48 hours, aspirin, atorvastatin, and metoprolol. I&O:? Over last 24hrs he?s net negative 3.7L. ?For the hospitalization, he?s still net positive 11.8 liters. Overnight last night had some questionable chest pain.? EKG and trop negative.? ? 2? CPR the night before.? This morning he?s awake, oriented and appropriate, albeit a bit sluggish.? Breathing easy on room air, with sat 95%.? HR 88, SR, on metoprolol 12.5 mg bid.? BP 106/46.? Afebrile.? No JVD at 45?.? Chest clear to auscultation, with normal expiratory phase.? RRR, normal-sounding S1-S2, with no murmur or gallops.? Abdomen is benign.? He has 1+ pretibial/ankle edema. LABORATORY DATA: ?below.? Notably,? WBC down to 17.? BUN creatinine down to 11/0.7.? Phosphorus down to 3.9.? Troponin down to 564.? BNP up to 634.? Repeat EKG early this morning is unchanged from yest morning. IMPRESSION: 1. Acute respiratory distress on the night of 05/28.? Unequivocally 2? to pulmonary edema.? The CXR is obvious.? Pulmonary edema was likely 2? to fluids given to a patient with previously unknown CMOP.? No evidence of an ischemic event. 2. Cardiac arrest.? Given how quickly the patient had return of consciousness, and how oriented he is this morning, I?m not 100% convinced that he had full jean-claude sation of spont circulation during the event.? Either way though, the cause of whatever happened was respiratory, not cardiac. 3. Acute respiratory failure.? Resolved. 4. Pulmonary and systemic edema.? Still 11 liters positive.? D/C the Lasix drip now, I?ll put him on Lasix 40mg po daily.? We have a [place] catheter on him. 5. Underlying CAD w ischemic CMOP.? He?s had a previous unknown ASWMI, as shown by the EKG and the echo yesterday.? Asymptomatic 2? to his DM.? He needs an ischemic workup.? Dr. Herron is consulting. 6 Troponin bump.? Type II.? Put him on bid Lovenox x 48 hrs, plus ASA, statin, and metoprolol.? Plan to add valsartan later. 7. Newly diagnosed/poorly controlled DM.? On Lispro and Lantus. 8. ID:? Continue vancomycin for his back abscess.? Leukocytosis overnight 05/28 is an acute phase reactant.? Not currently septic.? Waiting for word from Dr. Gilmore about whether we can d/c the vancomycin in favor of another antibiotic. Stable for transfer to [facility].? Will sign out to the hospitalists. Critical Care Time (minutes): 0 Physical Exam Vital Signs: Vital Signs: Last Vital Signs Temp 97.6 F 05/30/22 12:00 Pulse 91 05/30/22 13:00 Resp 21 H 05/30/22 13:00 BP 126/64 05/30/22 13:00 Pulse Ox 99 05/30/22 13:00 O2 Del Method 05/30/22 13:00 O2 Flow Rate 1 05/30/22 13:00 FiO2 25 05/29/22 11:11 BMI result Body Mass Index 30.9 Objective Data Labs CBC & Chem 7: 05/29/22 18:19 05/30/22 05:10 Labs: Laboratory Results - last 24 hr 05/29/22 05/29/22 05/29/22 13:26 13:26 13:26 WBC RBC Hgb Hct MCV MCH MCHC RDW Plt Count MPV Absolute Nucleated RBC Nucleated RBC % (auto) Sodium Potassium Chloride Carbon Dioxide Anion Gap BUN Creatinine Estim Creat Clear Calc Estimated GFR POC Glucose Random Glucose Lactic Acid 2.3 H* Calcium Phosphorus Magnesium 1.7 Troponin I High Sens 1088.6 H* B-Natriuretic Peptide 05/29/22 05/29/22 05/29/22 16:52 18:19 21:14 WBC 17.6 H RBC 4.50 L Hgb 12.5 L Hct 37.7 L MCV 83.8 MCH 27.8 MCHC 33.2 RDW 13.7 Plt Count 409 H MPV 9.1 L Absolute Nucleated RBC 0.000 Nucleated RBC % (auto) 0.0 Sodium Potassium Chloride Carbon Dioxide Anion Gap BUN Creatinine Estim Creat Clear Calc Estimated GFR POC Glucose 185 H 190 H Random Glucose Lactic Acid Calcium Phosphorus Magnesium Troponin I High Sens B-Natriuretic Peptide 05/30/22 05/30/22 05/30/22 02:09 05:10 05:10 WBC RBC Hgb Hct MCV MCH MCHC RDW Plt Count MPV Absolute Nucleated RBC Nucleated RBC % (auto) Sodium 137 Potassium 3.6 D Chloride 95 L Carbon Dioxide 31 H Anion Gap 15 BUN 11 Creatinine 0.71 0.73 Estim Creat Clear Calc 131.5 127.9 Estimated GFR > 60 > 60 POC Glucose Random Glucose 127 H D Lactic Acid Calcium 8.5 Phosphorus 3.9 Magnesium 1.8 Troponin I High Sens 573.0 H* B-Natriuretic Peptide 05/30/22 05/30/22 05/30/22 05:10 05:10 07:15 WBC RBC Hgb Hct MCV MCH MCHC RDW Plt Count MPV Absolute Nucleated RBC Nucleated RBC % (auto) Sodium Potassium Chloride Carbon Dioxide Anion Gap BUN Creatinine Estim Creat Clear Calc Estimated GFR POC Glucose 134 H Random Glucose Lactic Acid Calcium Phosphorus Magnesium Troponin I High Sens 564.1 H* B-Natriuretic Peptide 634 H 05/30/22 11:34 WBC RBC Hgb Hct MCV MCH MCHC RDW Plt Count MPV Absolute Nucleated RBC Nucleated RBC % (auto) Sodium Potassium Chloride Carbon Dioxide Anion Gap BUN Creatinine Estim Creat Clear Calc Estimated GFR POC Glucose 167 H Random Glucose Lactic Acid Calcium Phosphorus Magnesium Troponin I High Sens B-Natriuretic Peptide Microbiology Microbiology Results: Microbiology 05/20/22 12:58 Blood - Venous Blood Culture - Preliminary Gram positive [place] 05/20/22 12:26 Blood - Venous Blood Culture - Preliminary Gram positive [place] 05/26/22 12:08 Blood - Venous Blood Culture - Preliminary No growth after 48 hours. 05/26/22 12:08 Blood - Venous Blood Culture - Preliminary No growth after 48 hours. 05/20/22 17:21 Back Gram Stain - Final 05/20/22 17:21 Back Routine Culture - Final Propionibacterium acnes Quality Stroke Does the patient have a stroke diagnosis?: No VTE Prior VTE?: No VTE Risk Level:: Medical - moderate - high VTE Device Contraindication: Treatment Not Indicated VTE Drug Contraindication: N/A - Med Ordered
[2022-05-30] MEDS: Potassium Chloride/H20 40 MEQ/100 ML PIGGYBACK 50 MEQ IV (14:05)
[2022-05-30] MEDS: Magnesium Sulfate/H2O 2 GM/50 ML PIGGYBACK IV (14:05)
[2022-05-30 16:33] LABS: Glucose, Whole Blood 167 mg/dL (60-115)
[2022-05-30] MEDS: cefTRIAXone sodium 2 GM in 0.9 % Sodium Chloride 50 ML IV (16:51)
[2022-05-30 20:17] LABS: Glucose, Whole Blood 146 mg/dL (60-115)
[2022-05-30 23:31] LABS: Glucose, Whole Blood 137 mg/dL (60-115)
[2022-05-31] VITALS (9 sets, daily range): BP systolic 109–164; BP diastolic 55–95; PULSE 50–109; RESP 16–20; TEMP 36.1–36.4; O2SAT 89–97; BMI 30.6
--- NOTE | 2022-05-31 03:23 | PC.NURSE ---
Rivers catheter removed yesterday at 1130, pt required straight cath yesterday at 1800 and was due to void at 0100. Unfortunately pt has not voided, and denies any abd discomfort or urge to void. Bladder scanned for 654ml. notified, order for straight cath placed. Pt straight cathed at 0200, drained 550ml of yellow urine.
[2022-05-31 07:40] LABS: Creatinine Clr Calc Pharmacy 144.1; Estimated Glomerular Filt Rate > 60
[2022-05-31 08:12] LABS: Glucose, Whole Blood 136 mg/dL (60-115)
[2022-05-31] MEDS: polyethylene glycoL 3350 17 GM POWD.PACK PO (09:00)
[2022-05-31] MEDS: Metoprolol Tartrate 12.5 MG HALFTAB PO ×2 (09:00→20:30)
[2022-05-31] MEDS: Aspirin Enteric Coated 81 MG TABLET.DR PO (09:00)
[2022-05-31] MEDS: 0.9 % Sodium Chloride Flush 3 ML SYRINGE IVFLUSH ×3 (09:01→20:44)
[2022-05-31] MEDS: Insulin Glargine,Hum.rec.anlog 100 UNIT/ML 10 ML VIAL 20 UNIT SUBCUT (09:01)
[2022-05-31] MEDS: Atorvastatin Calcium 80 MG TABLET PO (09:01)
[2022-05-31] MEDS: Furosemide 40 MG/4 ML VIAL IVPUSH ×2 (10:25→18:51)
[2022-05-31] MEDS: oxyCODONE HCl Immed Release 5 MG TABLET PO ×2 (10:25→18:50)
--- NOTE | 2022-05-31 10:39 | P.PNIM_ITS ---
Subjective Subjective Date of Service: 05/31/22 Interval History: The patient was admitted for back abscess, sepsis, and bacteremia, new-onset diabetes; there is NO prior documented history of heart failure or known EF. On the evening of 05/28, he went into acute respiratory distress, extreme HTN, and tachycardia and then developed pulseless arrest with successful ACLS/CPR with ROSC and was intubated and sent to ICU; an incidental Echo done that evening for endocarditis showed -. Mildly dilated left ventricle with severe LV systolic dysfunction with LVEF of 25-30% with regional wall motion abnormality consistent with ischemic cardiomyopathy. Troponin I was over 1000. He has been on a Lasix drip for heart failure and Lovenox for ACS. He was extubated the next day and is being done better. This morning, however, he seems to be in acute distress with borderline O2 sat. Getting CXR, BNP and restarted on IV Lasix ? ? Review of Systems sob no chest pain Physical Exam Vital Signs: Vital Signs: Last Vital Signs Temp 97.6 F 05/31/22 07:59 Pulse 102 H 05/31/22 08:59 Resp 20 05/31/22 07:59 BP 132/86 05/31/22 08:59 Pulse Ox 90 L 05/31/22 08:59 O2 Del Method 05/31/22 08:59 O2 Flow Rate 2 05/31/22 08:59 FiO2 25 05/29/22 11:11 BMI result Body Mass Index 30.6 Const: Other: General: AO X 3, no acute distress Resp: CTA bilateral CVS: S1,S2,RRR, 1+edema in legs GI: +BS, NT, no distention Skin: No rash Neuro: motor grossly intact Psych: appropriate affect Objective Data Active Medications Acetaminophen (Acetaminophen 325 Mg Tablet) 650 mg PO Q4H PRN PRN Reason: pain Last Admin: 05/30/22 12:59 Dose: 650 mg Documented By: SONY Albuterol/Ipratropium (Albuterol/Iprat 2.5/0.5mg 3 Ml Ampul.Neb) 3 ml INHALE RQ4H PRN PRN Reason: wheezing Aspirin (Aspirin Enteric Coated 81 Mg Tablet.) 81 mg PO DAILY [facility] Last Admin: 05/31/22 09:00 Dose: 81 mg Documented By: OSKAR Atorvastatin Calcium (Atorvastatin Calcium 80 Mg Tablet) 80 mg PO DAILY [facility] Last Admin: 05/31/22 09:01 Dose: 80 mg Documented By: OSKAR Docusate Sodium (Docusate Sodium 100 Mg Capsule) 100 mg PO BID PRN PRN Reason: Constipation Furosemide (Furosemide 40 Mg/4 Ml Vial) 40 mg IVPUSH DAILY [facility]; Protocol Last Admin: 05/31/22 10:25 Dose: 40 mg Documented By: OSKAR Ceftriaxone Sodium 2 gm/ (Sodium Chloride) 50 mls @ 100 mls/hr IV Q24H [facility] Last Infusion: 05/30/22 17:55 Dose: 0 mls/hr Documented By: DEBBIE Insulin Glargine (Insulin Glargine,Hum.Rec.Anlog 100 Unit/Ml 10 Ml Vial) 20 unit SUBCUT DAILY [facility] Last Admin: 05/31/22 09:01 Dose: 20 unit Documented By: OSKAR Insulin Human Lispro (Insulin Lispro 100 Unit/Ml 3 Ml Vial) 0 unit SUBCUT QIDACHS [facility]; Protocol Last Admin: 05/31/22 08:22 Dose: Not Given Documented By: OSKAR Non-Admin Reason: No Insulin Coverage Metoprolol Tartrate (Metoprolol Tartrate 12.5 Mg Halftab) 12.5 mg PO BID [facility] Last Admin: 05/31/22 09:00 Dose: 12.5 mg Documented By: OSKAR Ondansetron HCl (Ondansetron Hcl 4 Mg/2 Ml Vial) 4 mg IVPUSH Q6H PRN PRN Reason: Nausea Last Admin: 05/30/22 22:31 Dose: 4 mg Documented By: LYNN Oxycodone HCl (Oxycodone Hcl Immed Release 5 Mg Tablet) 5 mg PO Q4H PRN PRN Reason: pain Last Admin: 05/31/22 10:25 Dose: 5 mg Documented By: OSKAR Pharmacy Consult (Consult Rx Perform Med Rec) 1 each MISCELLANE ONCE PRN PRN Reason: Consult order Polyethylene Glycol (Polyethylene Glycol 3350 17 Gm Powd.Pack) [address] [facility] Last Admin: 05/31/22 09:00 Dose: 17 gm Documented By: OSKAR Sodium Chloride (0.9 % Sodium Chloride Flush 3 Ml Syringe) 3 ml IVFLUSH QSHIFT [facility] Last Admin: 05/31/22 09:01 Dose: 3 ml Documented By: OSKAR Valsartan (Valsartan 80 Mg Tablet) 20 mg PO DAILY [facility]; Protocol Labs CBC & Chem 7: 05/29/22 18:19 05/31/22 06:21 Labs: Laboratory Results - last 24 hr 05/30/22 05/30/22 05/30/22 11:34 16:30 20:11 Estim Creat Clear Calc Estimated GFR POC Glucose 167 H 167 H 146 H 05/30/22 05/31/22 05/31/22 23:17 06:21 08:03 Estim Creat Clear Calc 144.1 Estimated GFR > 60 POC Glucose 137 H 136 H Assessment and Plan (1) Ischemic cardiomyopathy: Status: Acute (2) NSTEMI (non-ST elevated myocardial infarction): Status: Acute Plan The patient was admitted for back abscess (trapezius abscess), sepsis, and bacteremia, new-onset diabetes; there is NO prior documented history of heart failure or known EF. On the evening of 05/28, he went into acute respiratory distress, extreme HTN, and tachycardia and then developed pulseless arrest with successful ACLS/CPR with ROSC and was intubated and sent to ICU; an incidental Echo done that evening for endocarditis showed -. Mildly dilated left ventricle with severe LV systolic dysfunction with LVEF of 25-30% with regional wall motion abnormality consistent with ischemic cardiomyopathy. Troponin I was over 1000. He has been on a Lasix drip for heart failure and Lovenox for ACS. He was extubated the next day and is being done better. This morning, however, he seems to be in acute distress with borderline O2 sat. Getting CXR, BNP and restarted on IV Lasix #ACS #Ischmemic CMP with reduce EF #Acute systolic Heart #Code blue arrest -Lovenox x 48 hrs -ASA, metoprolol, statin -Will need cardiac cath when medically stable -CXR, BNP today and adding Valsartan 20, if CXR and BNP suggestive worsening Heart failure will restart Lasix drip #Severe sepsis secondary to right upper trapezius abscess, culture growing Gram- positives rods and propionibactereium -He has been on Vancomycin and now changed to Ceftriaxone with ID suggestion to change to oral Doxy and Ceftin at DC -s/p I/D by surgery #new onset type 2 diabetes--with A1c- 13.9%--better control -continue SSI and Lantus, FBS 136 today -teaching and education # acute dehydration likely secondary to hyperglycemia--resolved #pseudohyponatremia due to hyperglycemia -resolved # history DVT provoked s/p right ankle surgery-many years ago -no longer on anticoagulation as per pcp. right foot pressure ulcer s/p debridement-sugery followin DVT prophylaxis-Lovenox Need for inpatient: oingoing management post cardiac arrest for ischmeic cardiomypoathy, sepsis Quality Stroke Does the patient have a stroke diagnosis?: No VTE Prior VTE?: No VTE Risk Level:: Medical - moderate - high VTE Device Contraindication: Treatment Not Indicated VTE Drug Contraindication: N/A - Med Ordered
--- NOTE | 2022-05-31 11:34 | P.PNCA_ITS ---
Subjective Subjective Date of Service: 05/31/22 Principal diagnosis: s/p PEA arrest, Ischemic CMP, evidence of prior [place] Interval history: Patient says he is short of breath since he woke up this morning. Had to sit up. Has been given 1 dose of Lasix 40 mg IV push is not been given as yet. Blood pressure is stable. Denies any chest discomfort. No arrhythmias Review of Systems Constitutional: Reports lethargy Eyes: Reports no additional eye complaints Cardiovascular: Denies chest pain, Denies rapid heart rate, Reports leg edema, Denies Loss of Consciousness, Denies palpitations, Reports dyspnea and Reports orthopnea Respiratory: Reports no additional respiratory complaints and Reports dyspnea Gastrointestinal: Reports no additional gastrointestinal complaints Skin/Breast: Reports system reviewed and no additional complaints, except as docu Reports system reviewed and no additional complaints, except as documented Psychiatric: Reports no additional psychiatric complaints Endocrine: Denies palpitations Physical Exam Vital Signs: Last Vital Signs Temp 96.9 F 05/31/22 11:23 Pulse 101 H 05/31/22 11:23 Resp 20 05/31/22 11:23 BP 136/72 05/31/22 11:23 Pulse Ox 96 05/31/22 11:23 O2 Del Method 05/31/22 11:23 O2 Flow Rate 3 05/31/22 11:23 FiO2 25 05/29/22 11:11 BMI result Body Mass Index 30.6 Const General: cooperative, in distress moderate and respiratory and ill appearing Nutritional Appearance: overweight Orientation/consciousness: patient oriented x3 Neck Neck: Yes trachea midline, Yes supple and Yes JVD Resp Effort & Inspection: decreased respiratory effort Auscultation: rales on the left at the base Cardio Jugular venous distension: JVD Rate: tachycardic Rhythm: regular rhythm Heart sounds: S1 normal heart sound present, S2 normal heart sound present, no click, Gallop heart sound present and no murmurs GI Auscultation: normal bowel sounds Neuro General: patient oriented x3 and no focal motor deficits Extrem General: No clubbing, No cyanosis and Yes edema Objective Labs and Meds Result diagrams: 05/29/22 18:19 05/31/22 06:21 Lab results: Laboratory Results - last 24 hr 05/30/22 05/30/22 05/30/22 11:34 16:30 20:11 Creatinine Estim Creat Clear Calc Estimated GFR POC Glucose 167 H 167 H 146 H 10/28/22 10/29/22 10/29/22 23:17 06:21 08:03 Creatinine 0.65 Estim Creat Clear Calc 144.1 Estimated GFR > 60 POC Glucose 137 H 136 H Progress Note: A&P Assessment and plan (1) Acute heart failure: Status: Acute Assessment and Plan: Acute heart failure in patient with severe ischemic cardiomyopathy recent non- STEMI with severe sepsis and bacteremia related to abscess. Continue management of his acute medical/surgical illness. Continue to diurese. Has been given Lasix and if he does not a good response switch him to Lasix drip. Start on valsartan for afterload reduction. Obtain chest x-ray and BNP today. Strict intake and output chart needs to be pursued. Continue monitor renal function as well as electrolytes closely. Overall prognosis guarded. Will continue monitor patient. Will eventually require ischemic workup. (2) NSTEMI (non-ST elevated myocardial infarction): Status: Acute Assessment and Plan: Recent NSTEMI with high likelihood of underlying CAD with significant LV systolic dysfunction. This appears to be secondary to his recent cardiopulmonary arrest with hypertension as well as sepsis and metabolic acidosis. Continue overall anticoagulation 48 hours. Low-dose aspirin therapy as well as high-intensity statin therapy. Low-dose metoprolol has been started. Will continue to hold to up titrate at this point time given his heart failure syndrome. Will continue to follow with you Time Spent With Patient Time: Total time spent is greater than 50% in coordination of care (as documented) at patient's floor/unit and/or counseling patient: Progress Note: Quality Stroke Does the patient have a stroke diagnosis?: No Procedures Date of Service Date of Service: 05/31/22
[2022-05-31 11:35] LABS: Glucose, Whole Blood 256 mg/dL (60-115)
[2022-05-31 11:40] LABS: B Type Natriuretic Peptide 567 pg/mL (<100)
[2022-05-31] MEDS: Insulin Lispro 100 UNIT/ML 3 ML VIAL SUBCUT ×3 (12:09→20:44)
[2022-05-31] MEDS: Enoxaparin Sodium 40 MG/0.4 ML SYRINGE SUBCUT (12:10)
[2022-05-31] MEDS: Valsartan 40 MG TABLET 20 MG PO (12:30)
[2022-05-31 16:10] LABS: Glucose, Whole Blood 196 mg/dL (60-115)
[2022-05-31] MEDS: cefTRIAXone sodium 2 GM in 0.9 % Sodium Chloride 50 ML IV (17:01)
--- NOTE | 2022-05-31 18:36 | PC.NURSE ---
Patients kinsey noted to have blood tinged urine. No visible clots. Dr Arizmendi made aware. Said to continue monitoring. Patient stated no complaints. Call sullivan in reach. Patient makes needs known
[2022-05-31 20:11] LABS: Glucose, Whole Blood 223 mg/dL (60-115)
[2022-05-31] MEDS: Docusate Sodium 100 MG CAPSULE PO (20:30)
[2022-05-31] MEDS: Acetaminophen 325 MG TABLET 650 MG PO (20:30)
[2022-06-01] VITALS (7 sets, daily range): BP systolic 115–154; BP diastolic 63–82; PULSE 84–93; RESP 17–20; TEMP 36.3–36.9; O2SAT 94–98; BMI 30.9
[2022-06-01] MEDS: hydrOXYzine HCL 10 MG TABLET PO (00:16)
[2022-06-01] MEDS: oxyCODONE HCl Immed Release 5 MG TABLET PO ×5 (00:16→21:28)
[2022-06-01 07:25] LABS: Creatinine Clr Calc Pharmacy 119.1; Estimated Glomerular Filt Rate > 60
[2022-06-01 07:32] LABS: Anion Gap 18 (12-20); Blood Urea Nitrogen 16 mg/dL (9-16); Calcium 8.5 mg/dL (8.4-10.2); Carbon Dioxide 29 mmol/L (22-29); Chloride 96 mmol/L (96-108); Creatinine Clr Calc Pharmacy 119.1; Estimated Glomerular Filt Rate > 60; Glucose Random 306 mg/dL (60-115); Potassium 3.7 mmol/L (3.3-5.1); Sodium 139 mmol/L (135-145)
[2022-06-01 07:38] LABS: Glucose, Whole Blood 270 mg/dL (60-115)
[2022-06-01] MEDS: Furosemide 40 MG/4 ML VIAL IVPUSH (08:40)
[2022-06-01] MEDS: Metoprolol Tartrate 12.5 MG HALFTAB PO (08:40)
[2022-06-01] MEDS: Atorvastatin Calcium 80 MG TABLET PO (08:40)
[2022-06-01] MEDS: Insulin Lispro 100 UNIT/ML 3 ML VIAL SUBCUT ×4 (08:40→21:29)
[2022-06-01] MEDS: Insulin Glargine,Hum.rec.anlog 100 UNIT/ML 10 ML VIAL 20 UNIT SUBCUT (08:40)
[2022-06-01] MEDS: Valsartan 40 MG TABLET 20 MG PO ×2 (08:40→21:28)
[2022-06-01] MEDS: 0.9 % Sodium Chloride Flush 3 ML SYRINGE IVFLUSH ×2 (08:44→17:19)
[2022-06-01] MEDS: polyethylene glycoL 3350 17 GM POWD.PACK PO (08:54)
--- NOTE | 2022-06-01 09:13 | P.PNIM_ITS ---
Subjective Subjective Date of Service: 06/01/22 Interval History: The patient was admitted for back abscess, sepsis, and bacteremia, new-onset diabetes; there is NO prior documented history of heart failure or known EF. On the evening of 05/28, he went into acute respiratory distress, extreme HTN, and tachycardia and then developed pulseless arrest with successful ACLS/CPR with ROSC and was intubated and sent to ICU; an incidental Echo done that evening for endocarditis showed -. Mildly dilated left ventricle with severe LV systolic dysfunction with LVEF of 25-30% with regional wall motion abnormality consistent with ischemic cardiomyopathy. Troponin I was over 1000. He has been on a Lasix drip for heart failure and Lovenox for ACS. He was extubated the next day and is being done better. --Hematuria overnigt, no clot, no sob , vital stable. Review of Systems sob no chest pain Constitutional General: AO X 3, no acute distress Resp: CTA bilateral CVS: S1,S2,RRR, mild rales at bases GI: +BS, NT, no distention Skin: No rash ; kinsey with blood Neuro: motor grossly intact Psych: appropriate affect Physical Exam Vital Signs: Vital Signs: Last Vital Signs Temp 97.7 F 06/01/22 07:30 Pulse 87 06/01/22 07:30 Resp 18 06/01/22 07:30 BP 129/76 06/01/22 07:30 Pulse Ox 98 06/01/22 07:30 O2 Del Method 06/01/22 07:30 O2 Flow Rate 2 06/01/22 07:30 FiO2 25 05/29/22 11:11 BMI result Body Mass Index 30.9 Const: Other: General: AO X 3, no acute distress Resp: CTA bilateral CVS: S1,S2,RRR, 1+edema in legs GI: +BS, NT, no distention Skin: No rash Neuro: motor grossly intact Psych: appropriate affect General: cooperative, comfortable, no acute distress, alert, awake, in distress moderate and respiratory and ill appearing Nutritional Appearance: well nourished and overweight Orientation/consciousness: patient oriented x3 Limitations: no limitations HEENT: Head: Yes normal to inspection, Yes normocephalic and Yes atraumatic Ears: hearing grossly normal bilaterally and external ears normal General nose exam: Normal external nose present, no nasal discharge noted and no epistaxis Face and sinus: Yes normal facial exam, No abrasion and No laceration Mouth: Normal oral and palatal mucosa present, no drooling and no muffled voice Teeth and gingiva: dentition normal Eyes: General: appearance normal, both eyes and all related structures Periorbital: periorbital findings normal Eyelids: Yes eyelids normal Conjunctivae: conjunctivae normal Pupils: Equal, round and reactive pupils present EOM: EOMs intact bilaterally Neck: Neck: Yes normal visual inspection, Yes full ROM, Yes no lymphadenopathy, Yes trachea midline, Yes supple, Yes JVD and Yes no JVD Chest: Chest palpation & inspection: normal inspection of the chest Resp: Effort & Inspection: normal respiratory effort, able to speak in complete sentences and decreased respiratory effort Auscultation: clear to auscultation bilaterally, no crackles, rales on the left at the base, no rhonchi and no wheezes Cardio: Jugular venous distension: no JVD and JVD Palpation: normal PMI and abnormal PMI displaced PMI Rate: regular rate and tachycardic Rhythm: regular rhythm Heart sounds: S1 normal heart sound present, S2 normal heart sound present, no click, Gallop heart sound present, no murmurs and no rubs GI: Inspection: Yes normal to inspection Palpation (GI): Soft to palpation, nontender and no guarding Auscultation: normal bowel sounds Skin: General skin exam: no rashes or lesions noted Neuro: General: patient oriented x3, moves all extremities and no focal motor deficits Cranial nerves: Yes Equal, round and reactive pupils present Cognition (Neuro): normal cognition Motor exam (neuro): 5/5 motor strength present throughout Sensory Exam: Normal double simultaneous stimulation for sensation Coordination: [id number]-ew-[id number] test normal Extrem: Other: mild edema in lower legs General: Yes normal to inspection, Yes full ROM, Yes capillary refill normal, No clubbing, No cyanosis and Yes edema Psych: Appearance: grossly normal Mental Status: mental status grossly normal Affect: normal affect Attitude: cooperative Thought process: Normal thought process present Thought content: Normal thought content present Insight: Good insight present (Psych) Objective Data Active Medications Acetaminophen (Acetaminophen 325 Mg Tablet) 650 mg PO Q4H PRN PRN Reason: pain Last Admin: 05/31/22 20:30 Dose: 650 mg Documented By: RANDALL Albuterol/Ipratropium (Albuterol/Iprat 2.5/0.5mg 3 Ml Ampul.Neb) 3 ml INHALE RQ4H PRN PRN Reason: wheezing Aspirin (Aspirin Enteric Coated 81 Mg Tablet.Dr) 81 mg PO DAILY [facility] Last Admin: 05/31/22 09:00 Dose: 81 mg Documented By: OSKAR Atorvastatin Calcium (Atorvastatin Calcium 80 Mg Tablet) 80 mg PO DAILY [facility] Last Admin: 06/01/22 08:40 Dose: 80 mg Documented By: OSKAR Docusate Sodium (Docusate Sodium 100 Mg Capsule) 100 mg PO BID PRN PRN Reason: Constipation Last Admin: 05/31/22 20:30 Dose: 100 mg Documented By: RANDALL Furosemide (Furosemide 40 Mg/4 Ml Vial) 40 mg IVPUSH DAILY [facility]; Protocol Last Admin: 06/01/22 08:40 Dose: 40 mg Documented By: OSKAR Hydroxyzine HCl (Hydroxyzine Hcl 10 Mg Tablet) 10 mg PO Q8H PRN PRN Reason: itching Last Admin: 06/01/22 00:16 Dose: 10 mg Documented By: RANDALL Ceftriaxone Sodium 2 gm/ (Sodium Chloride) 50 mls @ 100 mls/hr IV Q24H [facility] Last Infusion: 05/31/22 18:18 Dose: 0 mls/hr Documented By: OSKAR Insulin Glargine (Insulin Glargine,Hum.Rec.Anlog 100 Unit/Ml 10 Ml Vial) 20 unit SUBCUT DAILY [facility] Last Admin: 06/01/22 08:40 Dose: 20 unit Documented By: OSKAR Insulin Human Lispro (Insulin Lispro 100 Unit/Ml 3 Ml Vial) 0 unit SUBCUT QIDACHS [facility]; Protocol Last Admin: 06/01/22 08:40 Dose: 8 unit Documented By: OSKAR Metoprolol Tartrate (Metoprolol Tartrate 12.5 Mg Halftab) 12.5 mg PO BID [facility] Last Admin: 06/01/22 08:40 Dose: 12.5 mg Documented By: OSKAR Ondansetron HCl (Ondansetron Hcl 4 Mg/2 Ml Vial) 4 mg IVPUSH Q6H PRN PRN Reason: Nausea Last Admin: 05/30/22 22:31 Dose: 4 mg Documented By: LYNN Oxycodone HCl (Oxycodone Hcl Immed Release 5 Mg Tablet) 5 mg PO Q4H PRN PRN Reason: pain Last Admin: 06/01/22 06:13 Dose: 5 mg Documented By: RANDALL Pharmacy Consult (Consult Rx Perform Med Rec) 1 each MISCELLANE ONCE PRN PRN Reason: Consult order Polyethylene Glycol (Polyethylene Glycol 3350 17 Gm Powd.Pack) 17 gm PO DAILY [facility] Last Admin: 06/01/22 08:54 Dose: 17 gm Documented By: OSKAR Sodium Chloride (0.9 % Sodium Chloride Flush 3 Ml Syringe) 3 ml IVFLUSH QSHIFT [facility] Last Admin: 06/01/22 08:44 Dose: 3 ml Documented By: OSKAR Valsartan (Valsartan 40 Mg Tablet) 20 mg PO DAILY [facility]; Protocol Last Admin: 06/01/22 08:40 Dose: 20 mg Documented By: OSKAR Labs CBC & Chem 7: 05/29/22 18:19 06/01/22 06:24 Labs: Laboratory Results - last 24 hr 05/31/22 05/31/22 05/31/22 11:06 11:26 16:06 Anion Gap Estim Creat Clear Calc Estimated GFR POC Glucose 256 H 196 H Random Glucose Calcium B-Natriuretic Peptide 567 H 05/31/22 06/01/22 06/01/22 20:06 06:24 06:24 Anion Gap 18 Estim Creat Clear Calc 119.1 119.1 Estimated GFR > 60 > 60 POC Glucose 223 H Random Glucose 306 H D Calcium 8.5 B-Natriuretic Peptide 06/01/22 07:32 Anion Gap Estim Creat Clear Calc Estimated GFR POC Glucose 270 H Random Glucose Calcium B-Natriuretic Peptide Microbiology Microbiology Results: Microbiology 05/26/22 12:08 Blood Culture - Final Blood - Venous No growth after 5 days. 05/26/22 12:08 Blood Culture - Final Blood - Venous No growth after 5 days. Assessment and Plan (1) Ischemic cardiomyopathy: Status: Acute (2) NSTEMI (non-ST elevated myocardial infarction): Status: Acute Plan The patient was admitted for back abscess (trapezius abscess), sepsis, and bacteremia, new-onset diabetes; there is NO prior documented history of heart failure or known EF. On the evening of 05/28, he went into acute respiratory distress, extreme HTN, and tachycardia and then developed pulseless arrest with successful ACLS/CPR with ROSC and was intubated and sent to ICU; an incidental Echo done that evening for endocarditis showed -. Mildly dilated left ventricle with severe LV systolic dysfunction with LVEF of 25-30% with regional wall motion abnormality consistent with ischemic cardiomyopathy. Troponin I was over 1000. He has been on a Lasix drip for heart failure and Lovenox for ACS. He was extubated the next day and is being done better. This morning, however, he seems to be in acute distress with borderline O2 sat. Getting CXR, BNP and restarted on IV Lasix #ACS #Ischmemic CMP with reduce EF #Acute systolic Heart #Code blue arrest -Lovenox x 48 hrs and stopped -ASA, metoprolol, statin -Will need cardiac cath when medically stable -CXR, BNP 05/31--> persistent pulmonary edema and was restarted on IV Lasix 40 bid with high urine output #Severe sepsis secondary to right upper trapezius abscess, culture growing Gram- positives rods and propionibactereium -He has been on Vancomycin and now changed to Ceftriaxone with ID suggestion to change to oral Doxy and Ceftin at DC -s/p I&D by surgery #new onset type 2 diabetes--with A1c- 13.9%--better control -continue SSI and Lantus, and adjust as needed -teaching and education # acute dehydration likely secondary to hyperglycemia--resolved #Hematuria--since last yesterday with punch color urine but -check CBC -type and screen -Urine consult if persist #pseudohyponatremia due to hyperglycemia -resolved # history DVT provoked s/p right ankle surgery-many years ago -no longer on anticoagulation as per pcp... He has been on Lovenox for DVT prophylaxis but is being stopped d/t ongoing hematuria right foot pressure ulcer s/p debridement-leilani followin DVT prophylaxis-Lovenox Need for inpatient: oingoing management post cardiac arrest for ischmeic cardiomypoathy, sepsis Quality Stroke Does the patient have a stroke diagnosis?: No VTE Prior VTE?: No VTE Risk Level:: Medical - moderate - high VTE Device Contraindication: Treatment Not Indicated VTE Drug Contraindication: N/A - Med Ordered
[2022-06-01 09:35] LABS: Hematocrit 40.4 % (42.0-52.0); Hemoglobin 12.9 g/dl (14.0-18.0); Mean Corpuscular HGB Conc 31.9 g/dl (31.0-36.0); Mean Corpuscular Hemoglobin 26.8 pg (27.0-33.0); Platelet Count 365 X10*3/uL (160-400); Red Blood Count 4.81 X10*6/uL (4.60-5.80); Red Cell Distribution Width 13.3 % (11.0-16.0); White Blood Count 10.9 X10*3/uL (4.8-10.8)
[2022-06-01 11:36] LABS: Glucose, Whole Blood 226 mg/dL (60-115)
--- NOTE | 2022-06-01 13:00 | PM.PNCARD ---
Subjective Subjective Date of Service: 06/01/22 Principal diagnosis: s/p PEA arrest, Ischemic CMP, evidence of prior [place] Interval history: Patient feeling a lot better. Complains of generalized soreness as well as soreness in the chest area. As per the he has been confused and does have short-term memory issues. He denies any chest pressure. Denies palpitations. Blood pressure stable. Has diuresed about 4 L. Review of Systems Constitutional: Reports lethargy and Reports weakness Eyes: Reports no additional eye complaints Cardiovascular: Denies chest pain, Denies lightheadedness, Denies Loss of Consciousness, Denies palpitations and Reports dyspnea on exertion Respiratory: Reports no additional respiratory complaints and Reports dyspnea on exertion Reports memory loss and Reports weakness Psychiatric: Reports memory loss Endocrine: Denies palpitations Physical Exam Vital Signs: Last Vital Signs Temp 98.0 F 06/01/22 11:20 Pulse 93 06/01/22 11:20 Resp 20 06/01/22 11:20 BP 120/65 06/01/22 11:20 Pulse Ox 95 06/01/22 11:20 O2 Del Method 06/01/22 11:20 O2 Flow Rate 2 06/01/22 11:20 FiO2 25 05/29/22 11:11 BMI result Body Mass Index 30.9 Const General: cooperative, in distress moderate and respiratory and ill appearing Nutritional Appearance: overweight Orientation/consciousness: patient oriented x3 Neck Neck: Yes trachea midline, Yes supple and Yes JVD Resp Effort & Inspection: decreased respiratory effort Auscultation: rales on the left at the base Cardio Jugular venous distension: JVD Rate: tachycardic Rhythm: regular rhythm Heart sounds: S1 normal heart sound present, S2 normal heart sound present, no click, Gallop heart sound present and no murmurs GI Auscultation: normal bowel sounds Neuro General: patient oriented x3 and no focal motor deficits Extrem General: No clubbing, No cyanosis and Yes edema Objective Labs and Meds Result diagrams: 06/01/22 09:27 06/01/22 06:24 Lab results: Laboratory Results - last 24 hr 05/31/22 05/31/22 06/01/22 16:06 20:06 06:24 WBC RBC Hgb Hct MCV MCH MCHC RDW Plt Count MPV Absolute Nucleated RBC Nucleated RBC % (auto) PT INR Sodium Potassium Chloride Carbon Dioxide Anion Gap BUN Creatinine 0.79 Estim Creat Clear Calc 119.1 Estimated GFR > 60 POC Glucose 196 H 223 H Random Glucose Calcium Blood Type Antibody Screen 06/01/22 06/01/22 06/01/22 06:24 07:32 09:27 WBC 10.9 H RBC 4.81 Hgb 12.9 L Hct 40.4 L MCV 84.0 MCH 26.8 L MCHC 31.9 RDW 13.3 Plt Count 365 MPV 9.0 L Absolute Nucleated RBC 0.000 Nucleated RBC % (auto) 0.0 PT INR Sodium 139 Potassium 3.7 Chloride 96 Carbon Dioxide 29 Anion Gap 18 BUN 16 Creatinine 0.79 Estim Creat Clear Calc 119.1 Estimated GFR > 60 POC Glucose 270 H Random Glucose 306 H D Calcium 8.5 Blood Type Antibody Screen 06/01/22 06/01/22 06/01/22 09:27 09:27 11:18 WBC RBC Hgb Hct MCV MCH MCHC RDW Plt Count MPV Absolute Nucleated RBC Nucleated RBC % (auto) PT 12.0 INR 1.0 Sodium Potassium Chloride Carbon Dioxide Anion Gap BUN Creatinine Estim Creat Clear Calc Estimated GFR POC Glucose 226 H Random Glucose Calcium Blood Type A Positive Antibody Screen NEGATIVE Imaging Radiologist's impression: Impressions PICC Line Insertion 05/30/22 17:02 IMPRESSION: Right upper extremity PICC line placement. Progress Note: A&P Assessment and plan (1) Acute heart failure: Status: Acute Assessment and Plan: Acute heart failure doing much better than yesterday. Continue IV diuresis. Lasix 40 mg IV b.i.d.. Strict intake and output chart. Continue monitor renal function as well as electrolytes and replace as needed. Maximize valsartan 20 mg b.i.d. and increase his metoprolol to 25 mg b.i.d.. Continue aggressive therapy for CAD has no and secondary non-STEMI. Once his infection/bacteremia issue improves will require inpatient stress test to further evaluate for where need for cardiac catheterization. Continue aspirin and high-intensity statin therapy. Will continue to follow with you Time Spent With Patient Time: Total time spent is greater than 50% in coordination of care (as documented) at patient's floor/unit and/or counseling patient: Progress Note: Quality Stroke Does the patient have a stroke diagnosis?: No Procedures Date of Service Date of Service: 06/01/22
--- NOTE | 2022-06-01 14:51 | PC.NURSE ---
Patient up to recliner with 2 assist. Patients dressings to back and right heel changed by this RN. Gauze and abd pad applied to back. Heel cleaned with wound cleanser. Silver alginate, gauze, and gauze roll applied to heel. Patient has no complaints. Call sullivan in reach. at bedside
[2022-06-01 17:02] LABS: Glucose, Whole Blood 191 mg/dL (60-115)
[2022-06-01] MEDS: cefTRIAXone sodium 2 GM in 0.9 % Sodium Chloride 50 ML IV (17:06)
[2022-06-01] MEDS: Docusate Sodium 100 MG CAPSULE PO (17:10)
[2022-06-01] MEDS: Metoprolol Tartrate 25 MG TABLET PO (21:29)
[2022-06-02] MEDS: oxyCODONE HCl Immed Release 5 MG TABLET PO ×5 (01:35→22:46)
[2022-06-02] MEDS: 0.9 % Sodium Chloride Flush 3 ML SYRINGE IVFLUSH ×4 (02:27→19:56)
[2022-06-02 03:46] VITALS: BP 125/85; PULSE 86; RESP 18; TEMP 36.2; O2SAT 95
[2022-06-02 05:46] LABS: Glucose, Whole Blood 189 mg/dL (60-115)
[2022-06-02 05:54] VITALS: BMI 30.4
[2022-06-02 07:52] VITALS: BP 126/84; PULSE 87; RESP 20; TEMP 36.1; O2SAT 97
[2022-06-02 07:56] LABS: Glucose, Whole Blood 220 mg/dL (60-115)
[2022-06-02] MEDS: Furosemide 40 MG/4 ML VIAL IVPUSH (08:05)
[2022-06-02] MEDS: polyethylene glycoL 3350 17 GM POWD.PACK PO (08:05)
[2022-06-02] MEDS: Atorvastatin Calcium 80 MG TABLET PO (08:05)
[2022-06-02] MEDS: Metoprolol Tartrate 25 MG TABLET PO ×2 (08:05→19:54)
[2022-06-02] MEDS: Aspirin Enteric Coated 81 MG TABLET.DR PO (08:05)
[2022-06-02] MEDS: Acetaminophen 325 MG TABLET 650 MG PO ×3 (08:05→16:44)
[2022-06-02] MEDS: Valsartan 40 MG TABLET 20 MG PO ×2 (08:06→19:54)
[2022-06-02] MEDS: Insulin Lispro 100 UNIT/ML 3 ML VIAL SUBCUT ×4 (08:06→19:55)
[2022-06-02] MEDS: Insulin Glargine,Hum.rec.anlog 100 UNIT/ML 10 ML VIAL 20 UNIT SUBCUT (08:06)
--- NOTE | 2022-06-02 09:42 | PM.PNCARD ---
Subjective Subjective Date of Service: 06/02/22 Principal diagnosis: s/p PEA arrest, Ischemic CMP, evidence of prior [place] Interval history: He is denying any acute cardiac symptoms like angina or shortness of breath. However, not really physically active at this time. Mostly in bed. Describes lot of pain everywhere. Review of Systems Review of Systems Yes all other systems are reviewed and are negative Constitutional: Reports as per HPI Eyes: Reports as per HPI Reports as per HPI Cardiovascular: Reports as per HPI, Denies acrocyanosis, Denies cool extremities, Denies chest pain, Denies leg edema, Denies lightheadedness, Denies palpitations and Denies dyspnea Respiratory: Reports as per HPI, Reports no additional respiratory complaints and Denies dyspnea Gastrointestinal: Reports as per HPI and Reports no additional gastrointestinal complaints Genitourinary: Reports no additional male genitourinary complaints and Reports as per HPI Musculoskeletal: Reports no additional musculoskeletal complaints and Reports as per HPI Skin/Breast: Reports system reviewed and no additional complaints, except as docu Reports system reviewed and no additional complaints, except as documented and Reports as per HPI Psychiatric: Reports no additional psychiatric complaints and Reports as per HPI Endocrine: Reports no additional endocrine complaints, Reports as per HPI and Denies palpitations Hematologic/Lymphatic: Reports no additional hematologic/lymphatic complaints and Reports as per HPI Allergic/Immunologic: Reports no additional allergic/immunologic complaints and Reports as per HPI Physical Exam Vital Signs: Last Vital Signs Temp 96.9 F 06/02/22 07:52 Pulse 87 06/02/22 07:52 Resp 20 06/02/22 07:52 BP 126/84 06/02/22 07:52 Pulse Ox 97 06/02/22 07:52 O2 Del Method 06/02/22 07:52 O2 Flow Rate 2 06/02/22 07:52 FiO2 25 05/29/22 11:11 BMI result Body Mass Index 30.4 Const General: comfortable and no acute distress Orientation/consciousness: patient oriented x3 HEENT Other: Unremarkable Head: Yes normal to inspection Neck Neck: Yes normal visual inspection Chest Chest palpation & inspection: normal inspection of the chest Resp Auscultation: clear to auscultation bilaterally Cardio Palpation: normal PMI Heart sounds: S1 normal heart sound present, S2 normal heart sound present, no gallops, no murmurs and no rubs GI Palpation (GI): Soft to palpation Back/Spine/Pelvis Other: unremarkable Skin General skin exam: no rashes or lesions noted Neuro General: patient oriented x3 Extrem General: Yes normal to inspection Psych Mental Status: mental status grossly normal Objective Labs and Meds Result diagrams: 06/01/22 09:27 06/01/22 06:24 Lab results: Laboratory Results - last 24 hr 06/01/22 06/01/22 06/01/22 09:27 09:27 11:18 PT 12.0 INR 1.0 POC Glucose 226 H Blood Type A Positive Antibody Screen NEGATIVE 06/01/22 06/01/22 06/02/22 15:31 19:17 07:53 PT INR POC Glucose 191 H 189 H 220 H Blood Type Antibody Screen Imaging Radiologist's impression: Impressions PICC Line Insertion 05/30/22 17:02 IMPRESSION: Right upper extremity PICC line placement. Progress Note: A&P Assessment and plan (1) Ischemic cardiomyopathy: Status: Acute (2) NSTEMI (non-ST elevated myocardial infarction): Status: Acute (3) Cardiac arrest: Status: Acute Plan Echocardiogram with LVEF of 25-30% with regional wall motion abnormalities. High sensitivity troponins have been quite high peaking at 1254. Not clear if it is all from coronary disease or stress-induced cardiomyopathy versus others. When he is stable from medical standpoint, diagnostic cardiac catheterization can be arranged. Otherwise, on beta-blockers, valsartan, IV diuretics, aspirin and statins. At home, he is not on any medications. Will follow with you. Discussed with Dr. Arizmendi. Time Spent With Patient Time: Total time spent is greater than 50% in coordination of care (as documented) at patient's floor/unit and/or counseling patient: 35min. Progress Note: Quality Stroke Does the patient have a stroke diagnosis?: No Procedures Date of Service Date of Service: 06/02/22
[2022-06-02 11:01] VITALS: BP 115/63; PULSE 83; RESP 20; TEMP 36.4; O2SAT 97
[2022-06-02 11:09] LABS: Glucose, Whole Blood 297 mg/dL (60-115)
--- NOTE | 2022-06-02 11:54 | HO.PM.IMPN ---
Subjective Subjective Date of Service: 06/02/22 Interval History: The patient was admitted for back abscess, sepsis, and bacteremia, new-onset diabetes; there is NO prior documented history of heart failure or known EF. On the evening of 05/28, he went into acute respiratory distress, extreme HTN, and tachycardia and then developed pulseless arrest with successful ACLS/CPR with ROSC and was intubated and sent to ICU; an incidental Echo done that evening for endocarditis showed -. Mildly dilated left ventricle with severe LV systolic dysfunction with LVEF of 25-30% with regional wall motion abnormality consistent with ischemic cardiomyopathy. Troponin I was over 1000. He has been on a Lasix drip for heart failure and Lovenox for ACS. He was extubated the next day and is being done better. Stable without new issues, hematuria resolved, continue to diuresse alot Review of Systems no sob no chest pain no hematuria Physical Exam Vital Signs: Vital Signs: Last Vital Signs Temp 97.6 F 06/02/22 11:01 Pulse 83 06/02/22 11:01 Resp 20 06/02/22 11:01 BP 115/63 06/02/22 11:01 Pulse Ox 97 06/02/22 11:01 O2 Del Method 06/02/22 11:01 O2 Flow Rate 2 06/02/22 11:01 FiO2 25 05/29/22 11:11 BMI result Body Mass Index 30.4 Const: Other: General: AO X 3, no acute distress Resp: CTA bilateral CVS: S1,S2,RRR, 1+edema in legs GI: +BS, NT, no distention Skin: No rash Neuro: motor grossly intact Psych: appropriate affect Objective Data Active Medications Acetaminophen (Acetaminophen 325 Mg Tablet) 650 mg PO Q4H PRN PRN Reason: pain Last Admin: 06/02/22 08:05 Dose: 650 mg Documented By: COTEMA Albuterol/Ipratropium (Albuterol/Iprat 2.5/0.5mg 3 Ml Ampul.Neb) 3 ml INHALE RQ4H PRN PRN Reason: wheezing Aspirin (Aspirin Enteric Coated 81 Mg Tablet.) 81 mg PO DAILY [facility] [place] Last Admin: 06/02/22 08:05 Dose: 81 mg Documented By: COTEMA Atorvastatin Calcium (Atorvastatin Calcium 80 Mg Tablet) 80 mg PO DAILY [facility] [place] Last Admin: 06/02/22 08:05 Dose: 80 mg Documented By: OWEN Docusate Sodium (Docusate Sodium 100 Mg Capsule) 100 mg PO BID PRN PRN Reason: Constipation Last Admin: 06/01/22 17:10 Dose: 100 mg Documented By: OSKAR Furosemide (Furosemide 40 Mg/4 Ml Vial) 40 mg IVPUSH DAILY [facility] [place]; Protocol Last Admin: 06/02/22 08:05 Dose: 40 mg Documented By: CATYEMA Hydroxyzine HCl (Hydroxyzine Hcl 10 Mg Tablet) 10 mg PO Q8H PRN PRN Reason: itching Last Admin: 06/01/22 00:16 Dose: 10 mg Documented By: NAUMOC Ceftriaxone Sodium 2 gm/ (Sodium Chloride) 50 mls @ 100 mls/hr IV Q24H [facility] [place] Last Infusion: 06/01/22 19:00 Dose: 0 mls/hr Documented By: OSKAR Insulin Glargine (Insulin Glargine,Hum.Rec.Anlog 100 Unit/Ml 10 Ml Vial) 20 unit SUBCUT DAILY [facility] [place] Last Admin: 06/02/22 08:06 Dose: 20 unit Documented By: OWEN Insulin Human Lispro (Insulin Lispro 100 Unit/Ml 3 Ml Vial) 0 unit SUBCUT QIDACHS [facility] [place]; Protocol Last Admin: 06/02/22 11:50 Dose: 8 unit Documented By: OWEN Metoprolol Tartrate (Metoprolol Tartrate 25 Mg Tablet) 25 mg PO BID [facility] [place] Last Admin: 06/02/22 08:05 Dose: 25 mg Documented By: OWEN Ondansetron HCl (Ondansetron Hcl 4 Mg/2 Ml Vial) 4 mg IVPUSH Q6H PRN PRN Reason: Nausea Last Admin: 05/30/22 22:31 Dose: 4 mg Documented By: LYNN Oxycodone HCl (Oxycodone Hcl Immed Release 5 Mg Tablet) 5 mg PO Q4H PRN PRN Reason: pain Last Admin: 06/02/22 08:05 Dose: 5 mg Documented By: CATYEMA Pharmacy Consult (Consult Rx Perform Med Rec) 1 each MISCELLANE ONCE PRN PRN Reason: Consult order Polyethylene Glycol (Polyethylene Glycol 3350 17 Gm Powd.Pack) 17 gm PO DAILY [facility] [place] Last Admin: 06/02/22 08:05 Dose: 17 gm Documented By: OWEN Sodium Chloride (0.9 % Sodium Chloride Flush 3 Ml Syringe) 3 ml IVFLUSH QSHIFT [facility] [place] Last Admin: 06/02/22 08:06 Dose: 3 ml Documented By: OWEN Valsartan (Valsartan 40 Mg Tablet) 20 mg PO BID [facility] [place]; Protocol Last Admin: 06/02/22 08:06 Dose: 20 mg Documented By: OWEN Labs CBC & Chem 7: 06/01/22 09:27 06/01/22 06:24 Labs: Laboratory Results - last 24 hr 06/01/22 06/01/22 06/02/22 15:31 19:17 07:53 POC Glucose 191 H 189 H 220 H 06/02/22 11:02 POC Glucose 297 H Assessment and Plan (1) Ischemic cardiomyopathy: Status: Acute (2) NSTEMI (non-ST elevated myocardial infarction): Status: Acute Plan The patient was admitted for back abscess (trapezius abscess), sepsis, and bacteremia, new-onset diabetes; there is NO prior documented history of heart failure or known EF. On the evening of 05/28, he went into acute respiratory distress, extreme HTN, and tachycardia and then developed pulseless arrest with successful ACLS/CPR with ROSC and was intubated and sent to ICU; an incidental Echo done that evening for endocarditis showed -. Mildly dilated left ventricle with severe LV systolic dysfunction with LVEF of 25-30% with regional wall motion abnormality consistent with ischemic cardiomyopathy. Troponin I was over 1000. He has been on a Lasix drip for heart failure and Lovenox for ACS. He was extubated the next day and is being done better. This morning, however, he seems to be in acute distress with borderline O2 sat. Getting CXR, BNP and restarted on IV Lasix #ACS #Ischmemic CMP with reduce EF #Acute systolic Heart #Code blue arrest -Lovenox x 48 hrs and stopped -ASA, metoprolol, statin -Will need cardiac cath when medically stable -CXR, BNP 05/31--> persistent pulmonary edema -continue IV Lasix 40 bid, Overall still positive 5 liters (accuracy not guaranteed), negative 1500 overnight -Once heart failure improved there is plan for cardiac cath at [facility], as far as sepsis is concern last culture has been negative x 5 days and ok for cardiac cath according to ID #Severe sepsis secondary to right upper trapezius abscess, culture growing Gram-positives rods and propionibactereium -He has been on Vancomycin and now changed to Ceftriaxone with ID suggestion to change to oral Doxy and Ceftin at DC -s/p I&D by surgery #new onset type 2 diabetes--with A1c- 13.9%--better control -continue SSI and Lantus, and adjust as needed -teaching and education # acute dehydration likely secondary to hyperglycemia--resolved #Hematuria--since last yesterday with punch color urine but -check CBC -type and screen -Urine consult if persist #pseudohyponatremia due to hyperglycemia -resolved # history DVT provoked s/p right ankle surgery-many years ago -no longer on anticoagulation as per pcp... He has been on Lovenox for DVT prophylaxis but is being stopped d/t ongoing hematuria right foot pressure ulcer s/p debridement-sugery followin DVT prophylaxis-Lovenox Need for inpatient: oingoing management post cardiac arrest for ischmemic cardiomypoathy, sepsis Quality Stroke Does the patient have a stroke diagnosis?: No VTE Prior VTE?: No VTE Risk Level:: Medical - moderate - high VTE Device Contraindication: Treatment Not Indicated VTE Drug Contraindication: N/A - Med Ordered
[2022-06-02] MEDS: hydrOXYzine HCL 10 MG TABLET PO (14:31)
--- NOTE | 2022-06-02 15:17 | MHC.CM.PN ---
Male 52 DX Cyst R upper back Patient coded while hospitalized, [place]+. Once stable DP [facility] Cardiac cath via ALS.
[2022-06-02 15:36] VITALS: BP 139/82; PULSE 84; RESP 19; TEMP 36.8
[2022-06-02 16:34] LABS: Glucose, Whole Blood 228 mg/dL (60-115)
[2022-06-02] MEDS: cefTRIAXone sodium 2 GM in 0.9 % Sodium Chloride 50 ML IV (16:44)
[2022-06-02 19:07] VITALS: BP 142/50; PULSE 86; RESP 18; TEMP 36.2; O2SAT 92
[2022-06-02 19:31] LABS: Glucose, Whole Blood 265 mg/dL (60-115)
[2022-06-02] MEDS: diphenhydrAMINE HCL 25 MG CAPSULE PO (19:55)
[2022-06-02 23:20] VITALS: BP 110/63; PULSE 93; RESP 18; TEMP 36.3; O2SAT 93
[2022-06-03 03:24] VITALS: BP 121/64; PULSE 89; RESP 18; TEMP 36.1; O2SAT 93
[2022-06-03] MEDS: oxyCODONE HCl Immed Release 5 MG TABLET PO ×2 (04:45→10:22)
[2022-06-03] MEDS: hydrOXYzine HCL 10 MG TABLET PO (06:20)
[2022-06-03 07:44] VITALS: BP 117/73; PULSE 91; RESP 16; TEMP 36.7; O2SAT 97
[2022-06-03 07:46] LABS: Glucose, Whole Blood 180 mg/dL (60-115)
[2022-06-03] MEDS: 0.9 % Sodium Chloride Flush 3 ML SYRINGE IVFLUSH (07:53)
[2022-06-03] MEDS: Furosemide 40 MG/4 ML VIAL IVPUSH (07:53)
[2022-06-03] MEDS: polyethylene glycoL 3350 17 GM POWD.PACK PO (07:53)
[2022-06-03] MEDS: Insulin Lispro 100 UNIT/ML 3 ML VIAL SUBCUT ×2 (07:54→11:41)
[2022-06-03] MEDS: Insulin Glargine,Hum.rec.anlog 100 UNIT/ML 10 ML VIAL 20 UNIT SUBCUT (07:54)
[2022-06-03] MEDS: Atorvastatin Calcium 80 MG TABLET PO (07:55)
[2022-06-03] MEDS: Valsartan 40 MG TABLET 20 MG PO (07:55)
[2022-06-03] MEDS: Metoprolol Tartrate 25 MG TABLET PO (07:55)
[2022-06-03] MEDS: Aspirin Enteric Coated 81 MG TABLET.DR PO (07:55)
--- NOTE | 2022-06-03 09:52 | PM.PNCARD ---
Subjective Subjective Date of Service: 06/03/22 Principal diagnosis: s/p PEA arrest, Ischemic CMP, evidence of prior [place] Interval history: Has aches and pains but does not have any specific cardiac symptoms. Review of Systems Review of Systems Yes all other systems are reviewed and are negative Constitutional: Reports as per HPI Eyes: Reports as per HPI Reports as per HPI Cardiovascular: Reports as per HPI, Denies acrocyanosis, Denies cool extremities, Denies chest pain, Denies leg edema, Denies lightheadedness, Denies palpitations and Denies dyspnea Respiratory: Reports as per HPI, Reports no additional respiratory complaints and Denies dyspnea Gastrointestinal: Reports as per HPI and Reports no additional gastrointestinal complaints Genitourinary: Reports no additional male genitourinary complaints and Reports as per HPI Musculoskeletal: Reports no additional musculoskeletal complaints and Reports as per HPI Skin/Breast: Reports system reviewed and no additional complaints, except as docu Reports system reviewed and no additional complaints, except as documented and Reports as per HPI Psychiatric: Reports no additional psychiatric complaints and Reports as per HPI Endocrine: Reports no additional endocrine complaints, Reports as per HPI and Denies palpitations Hematologic/Lymphatic: Reports no additional hematologic/lymphatic complaints and Reports as per HPI Allergic/Immunologic: Reports no additional allergic/immunologic complaints and Reports as per HPI Physical Exam Vital Signs: Last Vital Signs Temp 98.1 F 06/03/22 07:44 Pulse 91 06/03/22 07:44 Resp 16 06/03/22 07:44 BP 117/73 06/03/22 07:44 Pulse Ox 97 06/03/22 07:44 O2 Del Method 06/03/22 07:44 O2 Flow Rate 2 06/02/22 11:01 FiO2 95 06/02/22 15:36 BMI result Body Mass Index 30.4 Const General: comfortable and no acute distress Orientation/consciousness: patient oriented x3 HEENT Other: Unremarkable Head: Yes normal to inspection Neck Neck: Yes normal visual inspection Chest Chest palpation & inspection: normal inspection of the chest Resp Auscultation: clear to auscultation bilaterally Cardio Palpation: normal PMI Heart sounds: S1 normal heart sound present, S2 normal heart sound present, no gallops, no murmurs and no rubs GI Palpation (GI): Soft to palpation Back/Spine/Pelvis Other: unremarkable Skin General skin exam: no rashes or lesions noted Neuro General: patient oriented x3 Extrem General: Yes normal to inspection Psych Mental Status: mental status grossly normal Objective Labs and Meds Result diagrams: 06/01/22 09:27 06/01/22 06:24 Lab results: Laboratory Results - last 24 hr 06/02/22 06/02/22 06/02/22 11:02 16:28 19:27 POC Glucose 297 H 228 H 265 H 06/03/22 07:41 POC Glucose 180 H Imaging Radiologist's impression: Impressions Guidance Ultrasound 05/25/22 17:15 IMPRESSION: Right upper extremity PICC line placement. PICC Line Insertion 05/30/22 17:02 IMPRESSION: Right upper extremity PICC line placement. Progress Note: A&P Assessment and plan (1) Ischemic cardiomyopathy: Status: Acute (2) NSTEMI (non-ST elevated myocardial infarction): Status: Acute (3) Cardiac arrest: Status: Acute Plan Echocardiogram with LVEF of 25-30% with regional wall motion abnormalities. High sensitivity troponins have been quite high peaking at 1254. Unknown coronary status. Discussed with Dr. Sanchez and he seems that he is medically stable for cardiac catheterization. Hence we will transfer to [facility] today for that reason. Discussed with patient about the same and he is agreeable. At this time, he is on beta-blockers, valsartan, diuretics, aspirin and statins. Post catheterization, meds can be optimized and when he follows up in the office the can be further optimized to ensure he is on guideline based medical therapy. Time Spent With Patient Time: Total time spent is greater than 50% in coordination of care (as documented) at patient's floor/unit and/or counseling patient: 35min. Progress Note: Quality Stroke Does the patient have a stroke diagnosis?: No Procedures Date of Service Date of Service: 06/03/22
[2022-06-03 11:09] LABS: Glucose, Whole Blood 202 mg/dL (60-115)
[2022-06-03 12:00] VITALS: BP 110/87; PULSE 85; RESP 12; TEMP 36.3; O2SAT 94
--- NOTE | 2022-06-03 13:04 | P.DS_ITS ---
DS: Providers Provider Date of Service: 06/03/22 Date of admission: 05/20/22 18:40 Primary care physician: None Physician Consults: 05/20/22 18:43 Consult to General Surgery Routine Consulting Provider: Paul Retana Reason for consultation: abscess right upper back 05/23/22 08:00 Consult to Infectious Diseases Routine Consulting Provider: Nancy Gilmore Reason for consultation: new dm patient /back abcess Has provider been notified: No 05/29/22 12:46 Consult to Cardiology Routine Consulting Provider: Don Herron Reason for consultation: CMOP on echo; post cardiac arrest Has provider been notified: Yes 06/01/22 09:21 Consult to Urology Routine Consulting Provider: Delta Bautista Reason for consultation: hematura DS: Diagnosis Discharge Diagnosis (1) Ischemic cardiomyopathy: Status: Acute (2) NSTEMI (non-ST elevated myocardial infarction): Status: Acute (3) Cardiac arrest: Status: Acute (4) Acute heart failure: Status: Acute (5) Propionibacterium infection: Status: Acute (6) Bacteremia: Status: Acute (7) Open wound of right heel: Status: Acute (8) Pseudohyponatremia: Status: Acute (9) Severe sepsis: Status: Acute (10) Diabetes: Status: Acute (11) Abscess: Status: Acute (12) Acute hyperglycemia: Status: Acute DS: Summary Hospital Course Hospital Course: 52-year-old male with history of DVT right lower extremity following surgery on the right ankle presented to the ED earlier today complaining of a cyst on the right upper back pedis present for the last week with progressive increase in size.? Is also reporting feeling generally unwell over the last few days.? He denies any fevers, chills, lightheadedness, abdominal pain, nausea, vomiting, shortness of breath, palpitations, or chest pains.? On arrival patient is afebrile but tachycardic to 120.? WBC 23.3 with left shift on arrival, glucose noted to be significantly elevated at 682.? Sodium 126, chloride 82, anion gap 24.? VBG did not reveal any acidosis.? Renal function baseline with creatinine of 0.85, BUN 14.? Hemoglobin A1c 13.9%.? Patient denies any history of type 2 diabetes though does appear to have had significant hyperglycemia during the ER visit on 08/2020 with glucose of 440.? UA showing specific gravity of > 1.030 and > 1000 glucose, trace ketones.? Chest CT performed showing superficial fluid collection of the back to the right of midline with internal fluid and gas.? This tracks along the right trapezius muscle consistent with abscess.? No extension to the bony structures.? Patient was also seen and examined by General surgery while in the ED with I&D performed with use of suction catheter draining about 250 cc of pus.? Cultures were taken.? Patient was started empirically on Zosyn and given 3 L NS bolus.? He is also given a total of 10 units regular insulin with improvement in glucose to 402. Reporting 04/12 at abscess site. Patient to be admitted for severe sepsis with abscess and new onset type 2 diabetes. Hospital course: Patient was admitted for severe sepsis secondary to right upper trapezius abscess -status post I&D and intial blood culture grew Gram-positive rods possible propionibactereium- initially was started on broad-spectrum antibiotics subsequently seen by ID and switched to p.o. Ceftin and doxycycline. In addition patient had I&D done by surgery- the back area seems to be improving, still mild serosingunous discharge , continue p.o. antibiotics as well as follow-up out patiently , dry dressing,repeat blood cultures neg. echo groslly seems fine ( no gross vegetations). consider surgery evaluation if any new back skin changes. In addition patient had right heel pressure injury which had debridement and seems to be improving, conitnue wound care in [facility]. Patient had cardiac arrest episode:developed pulseless arrest with successful ACLS/CPR with ROSC and was intubated and sent to ICU; an incidental Echo done that evening for endocarditis showed -. Mildly dilated left ventricle with severe LV systolic dysfunction with LVEF of 25-30% with regional wall motion abnormality consistent with ischemic cardiomyopathy. Troponin I was over 1000. He has been on a Lasix drip for heart failure and Lovenox for ACS. He was extubated the next day and is being done better- possible CMPwith reduce EF and acute systolic heart failure ,ACS: started on aspirin, metoprolol, statin, also received Lovenox 48 hours, in addition patient received IV diuresis with Lasix. Currently switched to p.o. Lasix. Patient will be going to [facility] for further cardiac workup including cardiac catheterization. new onset diabetes: Hemoglobin A1c is 13.9, continue Lantus and sliding scale coverage as above. Diabetic teaching and education was given. Pseudohyponatremia seems to be improved possible latent to initial hyperglycemia secondary to new onset diabetes. Mild hematuria seems to be improving: monitor for hematuria and CBC if persistent consider urology evaluation. above management discussed with the patient in detail length she understand and in agreement with above plan. Time Spent with Patient Time attestation: Total time spent providing and/or coordinating discharge services: Discharge coordination time: Greater than 30 minutes Quality: Safe Use of Opioids Does Pt have an Active Cancer Diagnosis on the Problem List?: No Quality: Stroke Does the patient have a stroke diagnosis?: No Physical Exam Vital Signs: Vital Signs: Last Vital Signs Temp 97.3 F 06/03/22 12:00 Pulse 85 06/03/22 12:00 Resp 12 06/03/22 12:00 BP 110/87 06/03/22 12:00 Pulse Ox 94 06/03/22 12:00 O2 Del Method 06/03/22 12:00 O2 Flow Rate 2 06/02/22 11:01 FiO2 95 06/02/22 15:36 BMI result Body Mass Index 30.4 Appearance: Alert.? Oriented X3.? In somewhat pain.? cvs: rrr, [id number] res: clear to auscultation ,no rhonchii or wheezing abd: no rebound or guarding ,nt, bs present. ext pulses present , no cyanosis , right upper back area-dressed with gauze- no erythema , has some? discharge,but significantly sore. right heel pressure area -seems clean , improvin neuro: axo3 , nonfocal. DS: Data Data Completed and Pending Labs on day of discharge: Laboratory Results - last 24 hr 06/02/22 06/02/22 06/03/22 16:28 19:27 07:41 POC Glucose 228 H 265 H 180 H 06/03/22 10:50 POC Glucose 202 H Preliminary micro results at discharge 05/20/22 12:58 Blood Culture - Preliminary Blood - Venous Gram positive [place] 05/20/22 12:26 Blood Culture - Preliminary Blood - Venous Gram positive [place] Laboratory Results - last 24 hr ? 05/31/22B 05/31/22 05/31/22 ? 11:06 11:26 16:06 Anion Gap ? ? ? Estim Creat Clear Calc ? ? ? Estimated GFR ? ? ? POC Glucose ? ?256 H ?196 H Random Glucose ? ? ? Calcium ? ? ? B-Natriuretic Peptide ?567 H ? ? ? 05/31/22 06/01/22 06/01/22 ? 20:06 06:24 06:24 Anion Gap ? ? ?18 Estim Creat Clear Calc ? ?119.1 ?119.1 Estimated GFR ? ?> 60 ?> 60 POC Glucose ?223 H ? ? Random Glucose ? ? ?306 H D Calcium ? ? ?8.5 B-Natriuretic Peptide ? 06/01/22 ? 07:32 Anion Gap ? Estim Creat Clear Calc ? Estimated GFR ? POC Glucose ?270 H Random Glucose ? Calcium ? B-Natriuretic Peptide ? Microbiology Microbiology Results: Microbiology ?05/26/22 12:08 Blood Culture - Final ?Blood - Venous ?? No growth after 5 days. ?05/26/22 12:08 Blood Culture - Final ?Blood - Venous ?? No growth after 5 days. Additional Comments Additional comments: XR/XR chest 1V IMPRESSION: ? 1. Persistent but improving pulmonary edema with resolving effusions. 2. Persistent dense left lower lobe consolidation. ?CT/CT chest w IV con IMPRESSION: 1.? Superficial fluid collection of the back to the right of midline with internal fluid and gas. This tracks along the right trapezius muscle. This is consistent with abscess. No extension to the bony structures. 2.? No acute pulmonary finding. Secretions noted in the trachea and mainstem bronchi. ? Fleischner guidelines were followed. Discharge Plan Discharge Anticipated Discharge Date/Time: 06/03/22 11:49 Patient Disposition: [facility], [facility]–1983 Hospital Discharge Diagnosis: new onset diabetes, abscess, NSTEMI, cardiomyopathy, cardiac arrest. Referrals: Physician,None [Primary Care Provider] - 1 Week Discharge Medications: New atorvastatin 80 mg Tablet 80 mg PO DAILY Qty: 1 0RF aspirin 81 mg Tablet,Delayed Release (Dr/Ec) 81 mg PO DAILY Qty: 30 0RF cefuroxime axetil 500 mg Tablet 500 mg PO Q12H Qty: 26 0RF doxycycline hyclate 100 mg Tablet 100 mg PO Q12H Qty: 26 0RF valsartan 40 mg Tablet 20 mg PO BID Qty: 1 0RF Protocol: Hold for SBP< HOLD for SBP < : 90 metoprolol tartrate 25 mg Tablet 25 mg PO BID Qty: 1 0RF hydroxyzine HCl 10 mg Tablet 10 mg PO Q8H PRN (Reason: itching) Qty: 7 0RF polyethylene glycol 3350 17 gram Powder In Packet 17 g PO DAILY PRN (Reason: constipation) Qty: 30 0RF insulin glargine [Lantus U-100 Insulin] 100 unit/mL Solution 20 unit subcut DAILY Qty: 1 0RF insulin lispro [Humalog U-100 Insulin] 100 unit/mL Solution See Protocol subcut QIDACHS Qty: 1 0RF Protocol: Insulin Correction Scale Less than or equal to 110 ---- Give (units): 0 111 to 150 Give (units): 0 151 to 200 Give (units): 2 201 to 250 Give (units): 4 251 to 300 Give (units): 8 301 to 350 Give (units): 10 Greater than 350 Give (units): 14 Call MD if Blood Glucose > : 350 oxycodone 5 mg Tablet 5 mg PO Q4H PRN (Reason: pain) Qty: 1 0RF Rx Instructions: Partial Fill upon patient request. furosemide [Lasix] 40 mg tablet 40 mg PO DAILY Qty: 30 0RF Discharge Orders: Discharge Order (Routine); Ordered 06/03/22 Ordered By: Joo Sanchez Diet: Advance to usual diet Activity on Discharge: As tolerated Stand Alone Forms: Patient Portal Discharge page Print Language: Ukrainian Care Plan Goals: Patient was admitted for severe sepsis secondary to right upper trapezius abscess -status post I&D and intial blood culture grew Gram-positive rods possible propionibactereium- initially was started on broad-spectrum antibiotics subsequently seen by ID and switched to p.o. Ceftin and doxycycline. In addition patient had I&D done by surgery- the back area seems to be improving, still mild serosingunous discharge , continue p.o. antibiotics as well as follow-up out patiently , dry dressing,repeat blood cultures neg. echo groslly seems fine ( no gross vegetations) consider surgery evaluation if any new back skin changes. Patient had cardiac arrest episode:developed pulseless arrest with successful ACLS/CPR with ROSC and was intubated and sent to ICU; an incidental Echo done that evening for endocarditis showed -. Mildly dilated left ventricle with severe LV systolic dysfunction with LVEF of 25-30% with regional wall motion abnormality consistent with ischemic cardiomyopathy. Troponin I was over 1000. He has been on a Lasix drip for heart failure and Lovenox for ACS. He was extubated the next day and is being done better- possible CMPwith reduce EF and acute systolic heart failure ,ACS: started on aspirin, metoprolol, statin, also received Lovenox 48 hours, in addition patient received IV diuresis with Lasix. Currently switched to p.o. Lasix. Patient will be going to [facility] for further cardiac workup including cardiac catheterization. new onset diabetes: Hemoglobin A1c is 13.9, continue Lantus and sliding scale coverage as above. Diabetic teaching and education was given. Pseudohyponatremia seems to be improved possible latent to initial hyperglycemia secondary to new onset diabetes. Mild hematuria seems to be improving: monitor for hematuria and CBC if persistent consider urology evaluation. above management discussed with the patient in detail length she understand and in agreement with above plan. Health Concerns: Please see above. Plan of Treatment: Please see above. Assessment: As above. Patient Instructions: Heart Failure (DC), Acute Coronary Syndrome (DC), Bacteremia (DC), Type 2 Diabetes in the Older Adult (DC)
== END 2022-06-03 16:20 | disposition short-term general hospital (02) | DRG 853 ==
LOC: HO.ED 17:33 → HO.EDOVER 18:50 → HO.S3 05-21 18:58 → HO.ICU 05-28 21:33 → HO.IMC 05-30 22:40
PROVIDERS: Anesthesiology; Internal Medicine; Physician Assistant Medical; Student in an Organized Health Care Education/Training Program; Admitting Provider Physician Assistant; Emergency Provider Emergency Medicine Emergency Medical Services; Visit Provider Internal Medicine
DX: A41.9 Sepsis, unspecified organism (principal); I21.A1 Myocardial infarction type 2; I46.9 Cardiac arrest, cause unspecified; I50.21 Acute systolic (congestive) heart failure; J81.0 Acute pulmonary edema; J69.0 Pneumonitis due to inhalation of food and vomit; J96.00 Acute respiratory failure, unspecified whether with hypoxia or hypercapnia; M60.08 Infective myositis, other site; I24.9 Acute ischemic heart disease, unspecified; E87.20 Acidosis, unspecified; I11.0 Hypertensive heart disease with heart failure; R65.20 Severe sepsis without septic shock; E11.65 Type 2 diabetes mellitus with hyperglycemia; E86.0 Dehydration; I25.10 Atherosclerotic heart disease of native coronary artery without angina pectoris; I25.5 Ischemic cardiomyopathy; L89.619 Pressure ulcer of right heel, unspecified stage; R31.0 Gross hematuria; I25.2 Old myocardial infarction; Z20.822 Contact with and (suspected) exposure to COVID-19; Z86.718 Personal history of other venous thrombosis and embolism; Z87.891 Personal history of nicotine dependence; Z79.4 Long term (current) use of insulin; Z79.82 Long term (current) use of aspirin; Z79.899 Other long term (current) drug therapy
CPT/HCPCS: 36415; 36573; 36600; 71045; 71260; 76937; 80048; 80053; 80076; 80202; 81001; 82565; 82803; 82947; 83036; 83605; 83735; 83880; 84100; 84484; 85025; 85027; 85610; 85652; 85730; 86140; 86850; 86900; 86901; 87040; 87070; 87077; 87205; 87635; 92950; 93005; 93306; 94002; 94003; 94799; 96361; 96374; 96375; 96376; 97162; 99285; C1758; J0171; J0461; J0692; J0696; J1170; J1650; J1940; J2270; J2405; J2543; J3010; J3370; J3475; P9047; Q9957; Q9967

== ENCOUNTER 2022-07-25 10:02 | Outpatient (RCR) | payer BC, MEDICARE, SELFPAY | END 2022-07-31 14:14 | disposition home or self-care (01) | LOC: HO.WCC 10:02 | PROVIDERS: Visit Provider Physician Assistant | DX: E11.621 Type 2 diabetes mellitus with foot ulcer (principal); L97.518 Non-pressure chronic ulcer of other part of right foot with other specified severity; L97.418 Non-pressure chronic ulcer of right heel and midfoot with other specified severity; L98.422 Non-pressure chronic ulcer of back with fat layer exposed; I70.261 Atherosclerosis of native arteries of extremities with gangrene, right leg; E11.52 Type 2 diabetes mellitus with diabetic peripheral angiopathy with gangrene; E11.40 Type 2 diabetes mellitus with diabetic neuropathy, unspecified; Z79.4 Long term (current) use of insulin | CPT/HCPCS: 11042; 99214 ==